=== PATIENT | female | born 1945 | race Caucasian/White ===

== ENCOUNTER 2016-12-02 13:44 | Emergency (ER) | payer MEDICARE, OTHER ==
[~2016-12-02] VITALS: Ht 167.6 cm; Wt 90.7 kg
[~2016-12-02 13:44] MED LIST: ASPI81TA2 PO; CITA20TA5 PO; CITA20TA9 PO; CYCL10TA2 PO; FLUT9.9S NS; ISOS30TA PO; LACT10SO5 PO; LEFL20TA15 PO; LEVO500T34 PO; LISI40TA PO; METO50TA10 PO; METO50TA2 PO; METR500T PO; NIFE60TA13 PO; NIFE60TA2 PO; OMEP20TA PO; ONDA8TAB12 PO; PRED5TAB PO; SIMV80TA3 PO; TOCI80VI IV; TRAM50TA PO; [UNRECOGNIZED DRUG - CODE] PO
--- NOTE | 2016-12-02 13:51 | NUR ---
Arrival: Pt ambulated to ED 5, assessment as charted. Placed on continuios monitor. EDP notified of pt.
--- NOTE | 2016-12-02 14:00 | ER.PDOC ---
General Chief Complaint: Toothache Stated Complaint: MOUTH PAIN Time seen by MD: 14:00 Source: patient History of Present Illness Initial Comments pt has dentures and c/o mouth sores and also has sinus pain and nasal drainage. No sore throat Allergies: Coded Allergies: Sulfa (Sulfonamide Antibiotics) (Verified Allergy, Intermediate, Anaphylaxis Shock, 08/24/15) codeine (Verified Allergy, Intermediate, Rash, 08/24/15) morphine (Verified Allergy, Intermediate, Rash, 08/24/15) EXTREME VOMITING Home Meds Active Scripts Levofloxacin (Levaquin)500 Mg Ngskew137 Mg PO Q24HRS 7 Days Prov:REHAN DIXON MD 11/17/15 Reported Medications Metronidazole (Flagyl)500 Mg Tablet1 Tab PO TID #14 TAB 11/17/15 Ferrous Sulfate 325 Mg Tablet.dr325 Mg PO DAILY 08/24/15 Lactulose 10 Gm/15 Ml Wsbpjeeh31 Gm PO DAILY 08/24/15 Fluticasone Propionate (Flonase Allergy Relief)9.9 Ml Gravity.susp9.9 Ml NS DAILY 08/24/15 Citalopram Hydrobromide (Celexa)20 Mg Tablet1 Tab PO DAILY #30 TAB Ref 2 08/24/15 Nifedipine (Procardia Xl)60 Mg Tab.er.241 Tab PO DAILY #90 TAB Ref 3 08/24/15 Tramadol Hcl 50 Mg Aoobxo18 Mg PO Q6HR PRN PAIN 03/01/15 Cyclobenzaprine Hcl (Flexeril)10 Mg Tablet5 Mg PO TID PRN PAIN 03/01/15 Metoprolol Succinate 50 Mg Tab.er.24h50 Mg PO HS 03/01/15 Tocilizumab (Actemra)80 Mg/4 Ml Vial80 Mg IV EVERY 4 WEEKS 12/30/13 Simvastatin 80 Mg Kziqfr55 Mg PO HS 12/30/13 Lisinopril 40 Mg Jmtntt32 Mg PO DAILY 12/30/13 Aspirin 81 Mg Tab.chew81 Mg PO DAILY 12/30/13 Omeprazole 20 Mg Tablet.dr20 Mg PO DAILY 12/30/13 Prednisone 5 Mg Tablet7.5 Mg PO DAILY 12/30/13 Past Medical History Medical History: COPD, hypertension Surgical History: , hysterectomy, tonsillectomy, tubal LMP (females 10-50): hysterectomy Social History Smoking: less than 1 pack/day Alcohol Use: none Drug Use: none Constitutional: see HPI Ears: see HPI Mouth: see HPI All Other Systems: Reviewed and Negative Physical Exam General Appearance: alert Head/Neck: head nml inspection Eyes: eyes nml inspection Mouth: lips, gums nml (mout sore at the roof of the mouth beneath denture ) Ears/Nose: nml inspection (sinus tenderness right side ) Respiratory: no resp. distress Extremities: ROM nml Skin Exam: Normal Color Departure Time of Disposition: 14:15 Disposition: 01 HOME, SELF-CARE Impression: Primary Impression: Sinusitis Additional Impression: Mouth sores Condition: Stable Referrals: MEGHAN MARTINEZ MD (PCP) PRIMARY CARE PROVIDER QUIN PALACIOS MD Dec 02, 2016 14:00
[2016-12-02 14:30] VITALS: BP 114/77
== END 2016-12-02 14:25 | disposition home or self-care (01) ==
LOC: ER 13:44
DX: J32.9 Chronic sinusitis, unspecified (principal); K13.70 Unspecified lesions of oral mucosa; J44.9 Chronic obstructive pulmonary disease, unspecified; I10 Essential (primary) hypertension; F17.200 Nicotine dependence, unspecified, uncomplicated; Z79.82 Long term (current) use of aspirin; Z79.899 Other long term (current) drug therapy; Z88.2 Allergy status to sulfonamides; Z88.5 Allergy status to narcotic agent
CPT/HCPCS: 99283

== ENCOUNTER 2017-02-01 17:10 | Inpatient (IN) | payer MEDICARE, OTHER ==
[~2017-02-01] VITALS: Ht 167.6 cm; Wt 91.7 kg
--- NOTE | 2017-02-01 17:10 | NUR ---
ARRIVED PT ARRIVED VIA [facility], PT AWAKE, ALERT, ORIENTED X3. PT HAVING PAIN UNDER HER RIBS AND IN HER PELVIS. PT HAS CHRONIC RA PAIN AND LIVES @ A PAIN OF 5. TRIAGE DONE.
[2017-02-01] MEDS ORDERED: DECADRON IH STA (17:24)
[2017-02-01] MEDS ORDERED: SOLU-MEDROL IV STA (17:24)
[2017-02-01] MEDS ORDERED: DUONEB 0.5 MG-3 MG/3 ML SOLN IH STA (17:24)
[2017-02-01] MEDS ORDERED: DILAUDID IV STA (17:24)
--- NOTE | 2017-02-01 17:28 | ER.PDOC ---
General Chief Complaint: Abdomen Pain Stated Complaint: ABD PAIN Time seen by MD: 17:27 Source: patient Exam Limitations: no limitations History of Present Illness Initial Comments Abdominal pain for 2 days. Both ribs also hurt for same period. Severity/Quality: moderate Radiation: no radiation Associated Symptoms: denies symptoms Exacerbated by: nothing Relieved By: nothing Allergies: Coded Allergies: Sulfa (Sulfonamide Antibiotics) (Verified Allergy, Intermediate, Anaphylaxis Shock, 08/24/15) codeine (Verified Allergy, Intermediate, Rash, 08/24/15) morphine (Verified Allergy, Intermediate, Rash, 08/24/15) EXTREME VOMITING Home Meds Active Scripts Levofloxacin (LEVAQUIN) 500 Mg Tablet, 250 MG PO Q24HRS for 7 Days, TABLET Prov:REHAN DIXON MD 11/17/15 Reported Medications Metronidazole (FLAGYL) 500 Mg Tablet, 1 TAB PO TID, #14 TAB 11/17/15 Ferrous Sulfate (FERROUS SULFATE) 325 Mg Tablet.dr, 325 MG PO DAILY 08/24/15 Lactulose (LACTULOSE) 10 Gm/15 Ml Solution, 10 GM PO DAILY 08/24/15 Fluticasone Propionate (Flonase Allergy Relief) 9.9 Ml [place].susp, 9.9 ML NS DAILY 08/24/15 Citalopram Hydrobromide (CELEXA) 20 Mg Tablet, 1 TAB PO DAILY, #30 TAB 2 Refills 08/24/15 Nifedipine (PROCARDIA XL) 60 Mg Tab.er.24, 1 TAB PO DAILY, #90 TAB 3 Refills 08/24/15 Tramadol Hcl (TRAMADOL HCL) 50 Mg Tablet, 50 MG PO Q6HR Y for PAIN, TABLET 03/01/15 Cyclobenzaprine Hcl (FLEXERIL) 10 Mg Tablet, 5 MG PO TID Y for PAIN, TABLET 03/01/15 Metoprolol Succinate (METOPROLOL SUCCINATE) 50 Mg Tab.er.24h, 50 MG PO HS 03/01/15 Tocilizumab (ACTEMRA) 80 Mg/4 Ml Vial, 80 MG IV EVERY 4 WEEKS, VIAL 12/30/13 Simvastatin (SIMVASTATIN) 80 Mg Tablet, 80 MG PO HS, TABLET 12/30/13 Lisinopril (LISINOPRIL) 40 Mg Tablet, 40 MG PO DAILY, TABLET 12/30/13 Aspirin (ASPIRIN) 81 Mg Tab.chew, 81 MG PO DAILY, TAB.CHEW 12/30/13 Omeprazole (OMEPRAZOLE) 20 Mg Tablet.dr, 20 MG PO DAILY 12/30/13 Prednisone (PREDNISONE) 5 Mg Tablet, 7.5 MG PO DAILY, TABLET 12/30/13 Vital Signs First Vital Signs Date Time Temp Pulse Resp B/P (MAP) Pulse Ox O2 Delivery O2 Flow Rate FiO2 02/01/17 17:12 98.3 75 18 88 02/01/17 17:17 141/70 (93) Last Vital Signs Date Time Temp Pulse Resp B/P (MAP) Pulse Ox O2 Delivery O2 Flow Rate FiO2 02/01/17 17:17 98.3 75 18 141/70 (93) 88 Past Medical History Medical History: CVA/TIA/stroke, COPD, heart attack, hypertension Surgical History: hysterectomy, stent LMP (females 10-50): hysterectomy Social History Smoking: greater than 1 pack/day Alcohol Use: none Drug Use: none Constitutional: no symptoms reported Respiratory: see HPI Cardiovascular: no symptoms reported Gastrointestinal: see HPI Genitourinary: no symptoms reported Musculoskeletal: no symptoms reported Skin: no symptoms reported All Other Systems: Reviewed and Negative Physical Exam General Appearance: No Apparent Distress, WD/WN Neck: Non-Tender, Full Range of Motion, Supple, Normal Inspection Respiratory: chest non-tender, normal breath sounds, no respiratory distress, no accessory muscle use, decreased breath sounds, wheezing Cardiovascular: Normal Peripheral Pulses, Regular Rate, Rhythm, No Edema, No Gallop, No JVD, No Murmur Gastrointestinal: Normal Bowel Sounds, No Organomegaly, No Pulsatile Mass, Non Tender, Absent bowel sounds, Tenderness (upper and lower abdomen) Back: Normal Inspection, No CVA Tenderness, No Vertebral Tenderness Extremities: Normal Range of Motion, Non-Tender, Normal Inspection, No Pedal Edema, No Calf Tenderness, Normal Capillary Refill, Pelvis Stable Neurologic/Psychiatric: childcare aide II-XII NML as Tested, No Motor/Sensory Deficits, Alert, Normal Mood/Affect, Oriented x 3 Skin: Normal Color, Warm/Dry EKG/XRAY/CT/US EKG: NSR XRAY: chest (Nothing acute) CT Comments: No PE Course Blood Pressure Systolic: 141 Blood Pressure Diastolic: 70 Blood Pressure Mean: 93 Departure Time of Disposition: 20:19 Disposition: 09 ADMITTED INPATIENT Impression: Primary Impression: Respiratory failure with hypoxia Additional Impression: COPD exacerbation Condition: Stable Referrals: MEGHAN DUBOIS MD (PCP) PRIMARY CARE PROVIDER Comments Admitted to Dr. Dubois Critical Care Note Total Time (mins): 74 Problem Qualifiers Primary Impression: Respiratory failure with hypoxia Chronicity: acute Qualified Codes: J96.01 - Acute respiratory failure with hypoxia JOSE RAFAEL BEAUCHAMP MD February 01, 2017 17:28
[2017-02-01] MEDS ORDERED: SOLU-MEDROL ONE (17:34)
[2017-02-01] MEDS ORDERED: DILAUDID ONE (17:34)
[2017-02-01 17:39] LABS: ABG PCO2 38.5 mmHg (35.0-45.0); BE(B) 0.5 mmol/L (-2.0-2.0); HCO3act 24.7 mmol/L (22.0-26.0); pO2 47.6 mmHg (75.0-100.0)
[2017-02-01] MEDS ORDERED: DUONEB 0.5 MG-3 MG/3 ML SOLN IH ONE (17:44)
[2017-02-01] MEDS ORDERED: DECADRON ONE (17:44)
[2017-02-01] MEDS ORDERED: BENADRYL ONE (17:47)
[2017-02-01] MEDS ORDERED: BENADRYL IV STA (17:47)
[2017-02-01 17:51] LABS: BASOPHIL % 0.2 % (0.0-0.2); EOSINOPHIL % 0.4 % (0.0-5.0); HEMATOCRIT 46.1 % (36.0-46.0); HEMOGLOBIN 15.2 g/dL (12.0-15.0); LYMPHOCYTES # 0.6 10^3/uL (1.0-4.8); LYMPHOCYTES % 5.9 % (24.0-44.0); MEAN CELL HGB 27.4 pg (26-34); MEAN CORP VOLUME 83.2 fL (78-100); MEAN PLATELET VOLUME 10.3 fL (7.8-11.0); MONOCYTES # 0.7 10^3/uL (0.3-0.8); MONOCYTES % 6.6 % (5.0-12.0); NEUTROPHIL # 8.8 10^3/uL (1.8-7.7); NEUTROPHILS % 86.6 % (41.0-85.0); PLATELET COUNT 237 10^3/uL (150-400); RED CELL DISTRIBUTION WIDTH 14.9 % (11.5-14.5); WHITE BLOOD CELL 10.1 10^3/uL (4.5-11.0)
--- NOTE | 2017-02-01 17:55 | DIREP ---
PROCEDURE:CHEST 1 VIEW COMPARISON:[facility], CR, XRAY CHEST SINGLE VW, 11/16/2015, 05:05 PM. INDICATIONS:hypoxia FINDINGS: LUNGS/PLEURA:Subsegmental atelectasis or scarring in the right mid lung. The remainder of the lungs are clear. VASCULATURE:Normal. Unremarkable pulmonary vasculature. CARDIAC:Normal. No cardiac silhouette abnormality or cardiomegaly. MEDIASTINUM:Atherosclerotic aorta with no visible aneurysm. BONES:There are degenerative changes of both shoulders, right greater left. OTHER:Negative. CONCLUSION: 1. No evidence for acute cardiopulmonary disease. Dictated by: Tres Simmons MD on 02/01/2017 at 05:50 PM
[2017-02-01 18:11] LABS: CALCIUM 8.6 mg/dL (8.4-10.5); CARBON DIOXIDE 27.1 mmol/L (20.0-32)
[2017-02-01] MEDS ORDERED: NS IV STA (18:53)
[2017-02-01 19:09] LABS: DIFFERENTIAL COMMENT NORMAL; LYMPHOCYTE 5 % (25-36); MONOCYTE 4 % (3-9); SEGMENTED NEUTROPHILS 91 % (31-76)
[2017-02-01] MEDS ORDERED: NS 1000ML 1,000 ML ONE (19:11)
--- NOTE | 2017-02-01 20:05 | DIREP ---
PROCEDURE:CT PULMONARY ANGIOGRAM AND CT VENOGRAM TECHNIQUE:Following the intravenous administration of contrast material, axial cuts were obtained through the chest. Multiplanar / 3-D reconstructions are provided. Satisfactory pulmonary arterial contrast opacification was achieved. Delayed images through the pelvis and upper legs were acquired for a CT venogram. The images were viewed at lung and soft tissue settings. COMPARISON:[facility], CT, CT-CTA PULMONARY ANGIOGRAM, 12/27/2012, 11:59 PM. INDICATIONS:Hypoxia and chest pain FINDINGS: PULMONARY ARTERIES:Patent. VEINS OF PELVIS/LEGS:Patent. LUNGS:Trace both lower lobes there are subsegmental atelectatic changes in the posterior upper lobes. CARDIAC:Normal size heart and normal pulmonary vascularity. THORACIC AORTA:Atherosclerotic calcifications. No aneurysmal dilatation. 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 The right subclavian artery passes posterior to the esophagus. Moderate sliding-type hiatal hernia. PLEURA:Normal. BONES:Normal. PELVIS:Normal. OTHER:Sebaceous cyst posterior midline upper thorax. CONCLUSION: 1. No evidence for pulmonary embolism or deep venous thrombosis. 2. Moderate sliding-type hiatal hernia. 3. Subsegmental atelectasis or scarring throughout the lungs. Dictated by: Tres Simmons MD on 02/01/2017 at 07:56 PM
--- NOTE | 2017-02-01 20:25 | PRM.ACF1 ---
Date and Time Date and Time Time: 20:24 Admission Criteria Forms RESPIRATORY FAILURE GRG Clinical Indications for Admission to Inpatient Care (Place 'X' for any and all applicable criteria): Hospital admission is needed for appropriate care of the patient because of acute respiratory failure or insufficiency as indicated by ANY ONE of the following(1)(2)(3)(4)(5)(6)(7)(8): [ ]I. Mechanical ventilation needed (acute invasive or noninvasive) [ ]II. Severe ventilation deficit as indicated by ANY ONE of the following (9) [ ]a) Respiratory acidosis (pH less than 7.32 and partial pressure of carbon dioxide greater than 40 mm Hg (5.3 kPa)) [ ]b) Partial pressure of carbon dioxide greater than 44 mm Hg (5.9 kPa ) (new) [ ]c) Airflow measurements less than 25% of predicted (eg, peak expiratory flow rate less than 100 L/minute) [ ]d) Forced vital capacity less than 15 mL/kg of ideal body weight, or 50% decrease in vital capacity from baseline [ ]III. Noncardiac pulmonary edema not resolving with rapid emergency treatment (8) [x ]IV. Severe respiratory distress as indicated by ANY ONE of the following: [ ]a) Severe tachypnea (respiratory rate greater than 30, greater than 45 for 6-month-old, greater than 60 for ) [ ]b) Severe hypoxemia (partial pressure of oxygen less than 50 mm Hg ( 6.7 kPa) on greater than 50% oxygen or partial pressure of oxygen to FIO2 ratio less than 200) [ ]c) Mental status deterioration from respiratory disease [ ]V. Airway obstruction or inadequate protection [A](10)(11) The original [employer] content created by [employer] has been revised. The portions of the content which have been revised are identified through the use of italic text or in bold, and [employer] has neither reviewed nor approved the modified material. All other unmodified content is copyright [employer]. Please see references footnoted in the original [employer] edition 2016 JOSE RAFAEL BEAUCHAMP MD February 01, 2017 20:25
[2017-02-01] MEDS ORDERED: LEVAQUIN 100 ML IV SCH (20:30)
[2017-02-01] MEDS ORDERED: LEVAQUIN 100 ML IV ONE (20:43)
[2017-02-01] MEDS ORDERED: PULMICORT IH SCH (21:00)
[2017-02-01] MEDS: DUONEB 0.5 MG-3 MG/3 ML SOLN IH SCH (22:34)
--- NOTE | 2017-02-01 23:00 | NUR ---
NEW ORDERS RECEIVED RECEIVED NEW ORDERS FROM DR MARTINEZ: TYLENOL 500 MG PO Q6 HR FOR PAIN, TRAMADOL 50 MG PO Q6 FOR PAIN, MAY GIVE DILAUDID 1 MG IV Q4 PRN FOR PAIN- GIVE ONLY IF TRAMADOL IS NOT HELPING REDUCE PAIN. RBAV.
--- NOTE | 2017-02-01 23:20 | NUR ---
pain meds into give patient tramadol 50 for stated pain in ribs, patient states pain at a 8/10 on pain scale will reassess pain
[2017-02-01] MEDS ORDERED: TYLENOL PO PRN (23:30)
[2017-02-01] MEDS: SOLU-MEDROL IV SCH (23:30)
[2017-02-01] MEDS ORDERED: ULTRAM PO PRN (23:30)
[2017-02-01] MEDS ORDERED: DILAUDID IV PRN (23:30)
[2017-02-01 23:40] VITALS: BP 128/72
--- NOTE | 2017-02-01 23:49 | NUR ---
into get patients tempature and vital signs no ss of distress at this time
[2017-02-01 23:50] VITALS: BP 139/83
[2017-02-02] VITALS (31 sets, daily range): BP systolic 57–159; BP diastolic 29–81
[2017-02-02] MEDS ORDERED: DUONEB 0.5 MG-3 MG/3 ML SOLN IH SCH
[2017-02-02] MEDS: DUONEB 0.5 MG-3 MG/3 ML SOLN IH SCH ×6 (01:39→21:05)
--- NOTE | 2017-02-02 02:59 | NUR ---
into assess patient, patietn asleep resp even and unlabored call light within reach will cont to monitor
--- NOTE | 2017-02-02 04:06 | NUR ---
into assist patient get a drink of water, patient states no pain at this time will cont to monitor
[2017-02-02] MEDS: SOLU-MEDROL IV SCH ×3 (05:39→17:37)
--- NOTE | 2017-02-02 06:10 | NUR ---
asses pain into asses pain after pain medication had been given patient states that pain is being relieved some, no other needs voiced at this time.
--- NOTE | 2017-02-02 06:32 | NUR ---
gave report to oncoming shift relinquished care
[2017-02-02] MEDS ORDERED: DUONEB 0.5 MG-3 MG/3 ML SOLN IH ONE (08:09)
--- NOTE | 2017-02-02 08:29 | PCM.HP ---
History of Present Illness History of Present Illness 71 yro woman with RA, hypertension and COPD presented to the ER last night with dyspnea, pain and hypoxia. pt states 3 days ago arthritis pain flare in her pelvis. she has been having difficulty getting up out of chair and unable to walk. she has been using the rolling walker. yesterday she could not catch her breath and was having pain across both lower rib cages. no fever. no cough , + increase in wheezing Past Medical History Cardiac: CAD, HTN, Hyperlipidemia Pulmonary: COPD Heme/Onc: Other (secondary polycythemia) Psychiatric: Depression Endocrine: Osteopenia, Other (brendan's) Past Surgical History: Cataract Removal, , Tubal Ligation, Other ( hysterectomy, tendon transfer right wrist) Past Social History Smoke: 1 pack per day Alcohol: none Travel Hx EBOLA RISK:Travel to/contact w: No Is pt experiencing any Ebola s: No Review of Systems Constitutional: Weakness Eyes: No: Pain, Vision change, Conjunctivae inflammation, Eyelid inflammation, Other, Redness ENT: No: Ear pain, Ear discharge, Nose pain, Nose discharge, Nose congestion, Mouth pain, Mouth swelling, Throat pain, Throat swelling, Other Respiratory: SOB with excertion, Wheezing Cardiovascular: Chest Pain (lower rib cage) Gastrointestinal: No: Nausea, Vomiting, Abdominal Pain, Diarrhea, Constipation , Melena, Hematochezia, Other Genitourinary: No Dysuria, No Frequency, No Incontinence, No Hematuria, No Retention, No Other Musculoskeletal: shoulder pain, back pain, leg pain Skin: No: Rash, Lesions, Jaundice, Bruising, Other Neurological: Weakness Allergies: Coded Allergies: Sulfa (Sulfonamide Antibiotics) (Verified Allergy, Intermediate, Anaphylaxis Shock, 08/24/15) codeine (Verified Allergy, Intermediate, Rash, 08/24/15) morphine (Verified Allergy, Intermediate, Rash, 08/24/15) EXTREME VOMITING Scheduled Aspirin (Aspirin), 81 MG PO DAILY, (Reported) Citalopram Hydrobromide (Celexa), 1 TAB PO DAILY, (Reported) Ferrous Sulfate (Ferrous Sulfate), 325 MG PO DAILY, (Reported) Fluticasone Propionate (Flonase Allergy Relief), 9.9 ML NS DAILY, (Reported) Lactulose (Lactulose), 10 GM PO DAILY, (Reported) Lisinopril (Lisinopril), 40 MG PO DAILY, (Reported) Metoprolol Succinate (Metoprolol Succinate), 50 MG PO HS, (Reported) Nifedipine (Procardia Xl), 1 TAB PO DAILY, (Reported) Omeprazole (Omeprazole), 20 MG PO DAILY, (Reported) Prednisone (Prednisone), 7.5 MG PO DAILY, (Reported) Simvastatin (Simvastatin), 80 MG PO HS, (Reported) Tocilizumab (Actemra), 80 MG IV EVERY 4 WEEKS, (Reported) Scheduled PRN Cyclobenzaprine Hcl (Flexeril), 5 MG PO TID PRN for PAIN, (Reported) Tramadol Hcl (Tramadol Hcl), 50 MG PO Q6HR PRN for PAIN, (Reported) Discontinued Medications Levofloxacin (Levaquin), 250 MG PO Q24HRS Discontinued Reason: No Longer Taking Metronidazole (Flagyl), 1 TAB PO TID, (Reported) Discontinued Reason: No Longer Taking VTE VTE Risk Score VTE Risk: Score 0-1 = Low Risk (Aggressive mobilization; early ambulation; no VTE prophylaxis required) Score 2: Moderate Risk (Intermittent/Pneumatic Compression Device OR Lovenox/Heparin/Coumadin) Score 3-4: High Risk (Intermittent/Pneumatic Compression Device AND Lovenox/Heparin/Coumadin) Score > or =5: Highest Risk (Intermittent/Pneumatic Compression Device AND Lovenox/Heparin/Coumadin) Antico:Hep/LMWH/Coum/Xarelto: Yes Mechanical device ordered: No Exam Vital Signs Vital Signs Date Time Temp Pulse Resp B/P (MAP) Pulse Ox O2 Delivery O2 Flow Rate FiO2 02/02/17 08:04 Nasal Cannula 02/02/17 05:20 83 20 93 02/02/17 04:50 121/70 (87) 02/01/17 23:40 97.8 02/01/17 21:36 3.00 General Appearance: Alert, Oriented X3, Cooperative HEENT: Atraumatic Respiratory: Clear to auscultation, Normal air movement Cardiovascular: Normal S1, Normal S2, No murmurs Abdominal: Soft, No tenderness Extremities: No edema, Other (deformity of hands) Skin: No lesions Neuro: Normal speech Psych/Mental Status: Mood NL Assessment/Plan Assessment/Plan Assessment/Plan - pt admitted for oxygen, steroids, frequent nebulizer treatment - pt seen in the ICU at 8 am acute respiratory failure- improved since admission COPD excerbation - this pt may need oxygen at home RA- hold injection biologic - tramadol, tylenol and dilaudid prn for pain Brendan's - pt is receiving more than stress dose steroids with the IV solumedrol DVt prophylaxis with Lovenox pt stable and transfer to Floor today Problems: (1) Respiratory failure with hypoxia Status: Acute ICD Code: J96.91 - Respiratory failure, unspecified with hypoxia SNOMED: 52965287872185979 (2) COPD exacerbation Status: Chronic SEVERITY: MODERATE PERSISTENT ICD Code: J44.1 - Chronic obstructive pulmonary disease with (acute) exacerbation SNOMED: 398098279, [id number] (3) Rheumatoid arthritis flare Status: Chronic SEVERITY: SEVERE PERSISTENT ICD Code: M06.9 - Flare of rheumatoid arthritis SNOMED: 359198560 Patient History: Chronic obstructive pulmonary disease 33 FATHER, , Age:82 Congestive heart failure 32 MOTHER, , Age:86 Diabetes mellitus 32 MOTHER, , Age:86 Hypertension 32 MOTHER, , Age:86 33 FATHER, , Age:82 Unknown No Family History of: Alzheimer's disease Asthma Cerebrovascular disorder Diabetes insipidus Parkinson's disease Problem Qualifiers (1) Respiratory failure with hypoxia: Chronicity: acute Qualified Codes: J96.01 - Acute respiratory failure with hypoxia MEGHAN MARTINEZ MD Feb 02, 2017 08:29
[2017-02-02] MEDS ORDERED: FLEXERIL PO PRN ×2 (08:30)
[2017-02-02] MEDS ORDERED: ULTRAM PO PRN ×3 (08:30→12:00)
--- NOTE | 2017-02-02 08:35 | NUR ---
DISCHARGE PLANNING: SS VISITED WITH PT REGARDING DISCHARGE PLANNING NEED. PT LVIES HOME WITH HER AND HAS A WALKER SHE USES TO ASSIST WITH AMBULATION AND IS ABLE TO GET AROUND "PRETTY WELL". 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 PT STATED SHE IS OVER ALL FAIRLY INDEPENDENT, BUT WOULD LIKE A WHEEL CHAIR TO MAKE IT EASIER TO GET AROUND HER HOUSE. SS LET PT KNOW THAT IS SOMETHING HER AND HER PHYSICIAN NEED TO DISCUSS, BUT A LOT OF THE TIMES IT IS NOT RECOMMENDED BECAUSE PEOPLE BECOME DEPENDENT ON THEM AND NO LONGER ARE ABLE TO AMBULATE WELL. PT STATED SHE UNDERSTOOD AND WOULD ADDRESS IT WITH HER PHYSICIAN. SS LET PT KNOW IF SHE NEEDED ANY FURTHER ASSISTANCE TO LET HER KNOW AND SHE WOULD FOLLOW UP WITH HER. CONTACT INFORMATION PROVIDED. PT SAFETY HANDOUT ADDRESSED, NO QUESTIONS ASKED, UNDERSTANDING VERBALIZED. NO FURTHER NEEDS NOTED OR IDENTIFIED AT THIS TIME. SS TO CONTINUE TO FOLLOW AND MONITOR DISCHARGE PLANNING NEEDS.
[2017-02-02] MEDS: CEPHULAC PO SCH ×2 (08:37→09:00)
[2017-02-02] MEDS: CELEXA PO SCH (08:37)
[2017-02-02] MEDS: PROTONIX PO SCH (08:37)
[2017-02-02] MEDS: PROCARDIA PO SCH (08:37)
[2017-02-02] MEDS: ASPIRIN PO SCH (08:37)
[2017-02-02] MEDS: ZESTRIL PO SCH (08:38)
[2017-02-02] MEDS ORDERED: ASPIRIN PO SCH (09:00)
[2017-02-02] MEDS ORDERED: PROCARDIA PO SCH (09:00)
[2017-02-02] MEDS ORDERED: PROTONIX PO SCH (09:00)
[2017-02-02] MEDS ORDERED: CEPHULAC PO SCH (09:00)
[2017-02-02] MEDS ORDERED: CELEXA PO SCH (09:00)
[2017-02-02] MEDS ORDERED: ZESTRIL PO SCH (09:00)
[2017-02-02] MEDS ORDERED: FLONASE NS SCH (09:00)
[2017-02-02] MEDS: FLONASE NS SCH (09:00)
[2017-02-02] MEDS: PULMICORT IH SCH ×2 (09:22→21:05)
--- NOTE | 2017-02-02 09:55 | NUR ---
transfer patient transferred to med/surg via wheelchair with all belongings. assisted into bed and attached o2 cannula to wall o2 and set to 3 L/Min. report given to Deysi CAO.
[2017-02-02] MEDS ORDERED: DILAUDID IV PRN (11:30)
[2017-02-02] MEDS ORDERED: TYLENOL PO PRN (11:30)
[2017-02-02] MEDS ORDERED: TOPROL XL PO SCH ×2 (21:00)
[2017-02-02] MEDS ORDERED: ZOCOR PO SCH ×2 (21:00)
[2017-02-02] MEDS ORDERED: LOVENOX SQ SCH (21:00)
[2017-02-03] VITALS: BP 119/69
[2017-02-03] MEDS: DUONEB 0.5 MG-3 MG/3 ML SOLN IH SCH ×3 (00:38→09:05)
[2017-02-03] MEDS: SOLU-MEDROL IV SCH ×2 (00:42→06:46)
[2017-02-03 04:21] VITALS: BP 151/74
[2017-02-03] MEDS ORDERED: PRED20TA PO (08:23)
[2017-02-03] MEDS: ZESTRIL PO SCH (08:56)
[2017-02-03] MEDS: CELEXA PO SCH (08:57)
[2017-02-03] MEDS: PROTONIX PO SCH (08:57)
[2017-02-03] MEDS: PROCARDIA PO SCH (08:57)
[2017-02-03] MEDS: ASPIRIN PO SCH (08:57)
[2017-02-03] MEDS: CEPHULAC PO SCH (08:58)
[2017-02-03 08:59] VITALS: BP 137/62
[2017-02-03] MEDS: FLONASE NS SCH (09:00)
[2017-02-03] MEDS: PULMICORT IH SCH (09:05)
--- NOTE | 2017-02-03 09:07 | NUR ---
O2 challenge Patient O2 sat at 96% on 2.5 L. O2 checked after 15 minutes at rest on room air, and patients O2 was 92%. Ambulated patient down hernandez to nurses station, patient's oxygen dropped to 81%. O2 applied at 2.5 liters. Patients oxygen up to 96% within 3 minutes of oxygen being reapplied. Addendum: 02/03/17 at 1015 by Deysi Perez RN - MS CAO Educated patient on smoking cessation, and alternatives, patient verbalized understanding. Patient has been tried on other alternatives and have been deemed ineffective. Due to patients mobility in the home, O2 sats dropping after exertion. Patient will need home O2
[2017-02-03 10:24] VITALS: BP 137/62
--- NOTE | 2017-02-06 16:58 | PRM.DC ---
Subjective Subjective Patient History: Chronic obstructive pulmonary disease 33 FATHER, , Age:82 Congestive heart failure 32 MOTHER, , Age:86 Diabetes mellitus 32 MOTHER, , Age:86 Hypertension 32 MOTHER, , Age:86 33 FATHER, , Age:82 Unknown No Family History of: Alzheimer's disease Asthma Cerebrovascular disorder Diabetes insipidus Parkinson's disease Events Since Last Encounter Pt was admitted with hypoxia and Copd exacerbation. RS flare for 3 days prior to the start of dyspnea. pt was admitted to the ICU over night due to high level oxugen requirement in the Er . she did well on steroids, oxygen and breathing treatments. pt insisted on the am of 03 February she was leaving and she would start oxygen is needed. she has to go to a family reunion for the wkend. pt was much improved on the high dose steroids. oxygen sat 81% on day of discharge qualified pt for home oxygen. Exam Vital Signs Vital Signs Date Time Temp Pulse Resp B/P (MAP) Pulse Ox O2 Delivery O2 Flow Rate FiO2 02/03/17 10:56 Nasal Cannula 02/03/17 10:24 87 18 95 02/03/17 09:08 3.00 32 02/03/17 08:59 137/62 (87) 02/03/17 04:21 98.0 General Appearance: Alert, Oriented X3, Cooperative HEENT: Atraumatic Respiratory: Other (scattered wheeze, deminized breath sounds base of both lungs. ) Cardiovascular: Normal S1, Normal S2 Abdominal: Soft, No tenderness Extremities: No edema, Other (nodular deformity both hands) Skin: No lesions Neuro: Normal speech Psych/Mental Status: Mood NL VTE VTE Risk Score VTE Risk: Score 0-1 = Low Risk (Aggressive mobilization; early ambulation; no VTE prophylaxis required) Score 2: Moderate Risk (Intermittent/Pneumatic Compression Device OR Lovenox/Heparin/Coumadin) Score 3-4: High Risk (Intermittent/Pneumatic Compression Device AND Lovenox/Heparin/Coumadin) Score > or =5: Highest Risk (Intermittent/Pneumatic Compression Device AND Lovenox/Heparin/Coumadin) Antico:Hep/LMWH/Coum/Xarelto: Yes Mechanical device ordered: No Objective Medication Reconciliation Scheduled Aspirin (Aspirin), 81 MG PO DAILY, (Reported) Citalopram Hydrobromide (Celexa), 1 TAB PO DAILY, (Reported) Ferrous Sulfate (Ferrous Sulfate), 325 MG PO DAILY, (Reported) Fluticasone Propionate (Flonase Allergy Relief), 9.9 ML NS DAILY, (Reported) Lactulose (Lactulose), 10 GM PO DAILY, (Reported) Lisinopril (Lisinopril), 40 MG PO DAILY, (Reported) Metoprolol Succinate (Metoprolol Succinate), 50 MG PO HS, (Reported) Nifedipine (Procardia Xl), 1 TAB PO DAILY, (Reported) Omeprazole (Omeprazole), 20 MG PO DAILY, (Reported) Prednisone (Prednisone), 20 MG PO BID Simvastatin (Simvastatin), 80 MG PO HS, (Reported) Tocilizumab (Actemra), 80 MG IV EVERY 4 WEEKS, (Reported) Scheduled PRN Cyclobenzaprine Hcl (Flexeril), 5 MG PO TID PRN for PAIN, (Reported) Tramadol Hcl (Tramadol Hcl), 50 MG PO Q6HR PRN for PAIN, (Reported) Discontinued Medications Levofloxacin (Levaquin), 250 MG PO Q24HRS Discontinued Reason: No Longer Taking Metronidazole (Flagyl), 1 TAB PO TID, (Reported) Discontinued Reason: No Longer Taking Prednisone (Prednisone), 7.5 MG PO DAILY, (Reported) Discontinued Reason: HOLD Plan Assessment continue steroids at 20 mg po BId for the next wk oxygen orders through company of pt's choice continue home nebulizer treatments. f/u with me in 1 wk Problems, incl. Pt HX: (1) COPD (chronic obstructive pulmonary disease) Status: Chronic ICD Code: J44.9 - Chronic obstructive pulmonary disease, unspecified SNOMED: 08741482 (2) Acute respiratory failure with hypoxia Status: Acute ICD Code: J96.01 - Acute respiratory failure with hypoxia SNOMED: 09153859, 237362469 (3) Rheumatoid arthritis flare Status: Chronic ICD Code: M06.9 - Flare of rheumatoid arthritis SNOMED: [id number] MEGHAN MARTINEZ MD Feb 06, 2017 16:58
== END 2017-02-03 11:23 | disposition home or self-care (01) | DRG 189 ==
LOC: ER 17:10 → EDBD 17:10 → ICU 20:20 → MS 02-02 10:03
PROVIDERS: ADMIT Family Medicine; ATTEND Family Medicine
DX: J96.01 Acute respiratory failure with hypoxia (principal); J44.1 Chronic obstructive pulmonary disease with (acute) exacerbation; E78.5 Hyperlipidemia, unspecified; I25.10 Atherosclerotic heart disease of native coronary artery without angina pectoris; M06.9 Rheumatoid arthritis, unspecified; D75.1 Secondary polycythemia; F32.9 Major depressive disorder, single episode, unspecified; I10 Essential (primary) hypertension; M85.80 Other specified disorders of bone density and structure, unspecified site; F17.210 Nicotine dependence, cigarettes, uncomplicated; I25.2 Old myocardial infarction; Z90.710 Acquired absence of both cervix and uterus; Z98.51 Tubal ligation status; Z98.49 Cataract extraction status, unspecified eye; Z88.6 Allergy status to analgesic agent; Z88.2 Allergy status to sulfonamides; Z79.82 Long term (current) use of aspirin; Z79.899 Other long term (current) drug therapy; Z86.73 Personal history of transient ischemic attack (TIA), and cerebral infarction without residual deficits; Z82.5 Family history of asthma and other chronic lower respiratory diseases; Z82.49 Family history of ischemic heart disease and other diseases of the circulatory system; Z83.3 Family history of diabetes mellitus
CPT/HCPCS: 36415; 36600; 71010; 71275; 80053; 82803; 83690; 83880; 84484; 85007; 85025; 85379; 85610; 85730; 86677; 93005; 94640; 96365; 96375; 99291; J1100; J1170; J1200; J1650; J1956; J2930; J7030; J7620; J7627; Q9967

== ENCOUNTER 2017-07-07 02:40 | Emergency (ER) | payer MEDICARE, OTHER ==
[~2017-07-07] VITALS: Ht 167.6 cm; Wt 86.2 kg
[~2017-07-07 02:40] MED LIST changes: +ASPI-667 PO; -ASPI81TA2 PO; -LEVO500T34 PO; +LEVO500T51 PO; +METO-237 PO; -METO50TA10 PO; -OMEP20TA PO; +OMEP20TA9 PO; +PRED20TA PO
[2017-07-07] MEDS ORDERED: BENADRYL IM STA (03:05)
[2017-07-07] MEDS ORDERED: DILAUDID IM STA (03:05)
[2017-07-07] MEDS ORDERED: DILAUDID ONE (03:06)
[2017-07-07] MEDS ORDERED: BENADRYL ONE (03:06)
--- NOTE | 2017-07-07 03:09 | ER.PDOC ---
General Chief Complaint: Extremities Stated Complaint: SHOULDER PAIN Time seen by MD: 03:07 Source: patient Exam Limitations: no limitations History of Present Illness Initial Comments Tight shoulder pain from RA flare up. No new fall or injury. Severity: moderate Allergies: Coded Allergies: Sulfa (Sulfonamide Antibiotics) (Verified Allergy, Intermediate, Anaphylaxis Shock, 08/24/15) codeine (Verified Allergy, Intermediate, Rash, 08/24/15) morphine (Verified Allergy, Intermediate, Rash, 08/24/15) EXTREME VOMITING Home Meds Active Scripts Prednisone (PREDNISONE) 20 Mg Tablet, 20 MG PO BID for 7 Days, #14 TAB Prov:MEGHAN MARTINEZ MD 02/03/17 Reported Medications Ferrous Sulfate (FERROUS SULFATE) 325 Mg Tablet.dr, 325 MG PO DAILY 08/24/15 Lactulose (LACTULOSE) 10 Gm/15 Ml Solution, 10 GM PO DAILY 08/24/15 Fluticasone Propionate (Flonase Allergy Relief) 9.9 Ml [place].susp, 9.9 ML NS DAILY 08/24/15 Citalopram Hydrobromide (CELEXA) 20 Mg Tablet, 1 TAB PO DAILY, #30 TAB 2 Refills 08/24/15 Nifedipine (PROCARDIA XL) 60 Mg Tab.er.24, 1 TAB PO DAILY, #90 TAB 3 Refills 08/24/15 Tramadol Hcl (TRAMADOL HCL) 50 Mg Tablet, 50 MG PO Q6HR Y for PAIN, TABLET 03/01/15 Cyclobenzaprine Hcl (FLEXERIL) 10 Mg Tablet, 5 MG PO TID Y for PAIN, TABLET 03/01/15 Metoprolol Succinate (METOPROLOL SUCCINATE) 50 Mg Tab.er.24h, 50 MG PO HS 03/01/15 Tocilizumab (ACTEMRA) 80 Mg/4 Ml Vial, 80 MG IV EVERY 4 WEEKS, VIAL 12/30/13 Simvastatin (SIMVASTATIN) 80 Mg Tablet, 80 MG PO HS, TABLET 12/30/13 Lisinopril (LISINOPRIL) 40 Mg Tablet, 40 MG PO DAILY, TABLET 12/30/13 Aspirin (ASPIRIN) 81 Mg Tab.chew, 81 MG PO DAILY, TAB.CHEW 12/30/13 Omeprazole (OMEPRAZOLE) 20 Mg Tablet.dr, 20 MG PO DAILY 12/30/13 Past Medical History Medical History: COPD, hypertension Surgical History: hysterectomy, stent, tonsillectomy, tubal Social History Smoking: greater than 1 pack/day Alcohol Use: none Drug Use: none Review of Systems Constitutional: no symptoms reported Respiratory: no symptoms reported Cardiovascular: no symptoms reported Gastrointestinal: no symptoms reported Musculoskeletal: see HPI All Other Systems: Reviewed and Negative Physical Exam General Appearance: Alert, No Apparent Distress Shoulder: tenderness (right) Upper Extremities: uninjuried below shoulder Neuro: sensation nml, motor nml Vascular: no vascular compromise Head/ENT: nml inspection, pharynx nml Neck/Back: non-tender, nml inspection, painless ROM Respiratory: chest non-tender, breath sounds nml CVS: reg rate & rhythm, heart sounds nml Abdomen: non-tender, no organomegaly Departure Time of Disposition: 03:08 Disposition: 01 HOME, SELF-CARE Impression: Primary Impression: Rheumatoid arthritis flare Additional Impression: Right shoulder pain Condition: Improved Referrals: FERMIN DASILVA MD (PCP) PRIMARY CARE PROVIDER Additional Instructions: Continue home medications F/U with your PCP next week Problem Qualifiers Additional Impression: Right shoulder pain Chronicity: chronic Qualified Codes: M25.511 - Pain in right shoulder; G89.29 - Other chronic pain JOSE RAFAEL BEAUCHAMP MD Jul 07, 2017 03:09
--- NOTE | 2017-07-07 03:11 | PCM.EKG ---
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
[2017-07-07 03:33] VITALS: BP 137/80
== END 2017-07-07 03:25 | disposition home or self-care (01) ==
LOC: ER 02:40
DX: M06.9 Rheumatoid arthritis, unspecified (principal); I10 Essential (primary) hypertension; J44.9 Chronic obstructive pulmonary disease, unspecified; F17.200 Nicotine dependence, unspecified, uncomplicated; Z79.82 Long term (current) use of aspirin; Z79.899 Other long term (current) drug therapy; Z88.2 Allergy status to sulfonamides; Z88.5 Allergy status to narcotic agent; Z88.8 Allergy status to other drugs, medicaments and biological substances
CPT/HCPCS: 93005; 96372 ×2; 99284; J1170; J1200

== ENCOUNTER 2017-07-08 11:12 | Emergency (ER) | payer MEDICARE, OTHER ==
[~2017-07-08] VITALS: Ht 167.6 cm; Wt 86.2 kg
[2017-07-08] MEDS ORDERED: KENALOG-40 IM STA (11:55)
[2017-07-08] MEDS ORDERED: TORADOL IM STA (11:55)
[2017-07-08] MEDS ORDERED: TORADOL ONE (12:00)
[2017-07-08] MEDS ORDERED: KENALOG-40 ONE (12:00)
--- NOTE | 2017-07-08 12:12 | ER.PDOC ---
General Chief Complaint: General Complaint Stated Complaint: ARTHRITIS PAIN TRAVEL OUT OF US: No Time seen by MD: 12:08 Source: patient Exam Limitations: no limitations History of Present Illness Initial Comments Rheumatoid arthritis flare up for past 3 days Severity: moderate Associated Symptoms: denies symptoms Allergies: Coded Allergies: Sulfa (Sulfonamide Antibiotics) (Verified Allergy, Intermediate, Anaphylaxis Shock, 08/24/15) codeine (Verified Allergy, Intermediate, Rash, 08/24/15) morphine (Verified Allergy, Intermediate, Rash, 08/24/15) EXTREME VOMITING Home Meds Active Scripts Prednisone (PREDNISONE) 20 Mg Tablet, 20 MG PO BID for 7 Days, #14 TAB Prov:MEGHAN MARTINEZ MD 02/03/17 Reported Medications Ferrous Sulfate (FERROUS SULFATE) 325 Mg Tablet.dr, 325 MG PO DAILY 08/24/15 Lactulose (LACTULOSE) 10 Gm/15 Ml Solution, 10 GM PO DAILY 08/24/15 Fluticasone Propionate (Flonase Allergy Relief) 9.9 Ml [place].susp, 9.9 ML NS DAILY 08/24/15 Citalopram Hydrobromide (CELEXA) 20 Mg Tablet, 1 TAB PO DAILY, #30 TAB 2 Refills 08/24/15 Nifedipine (PROCARDIA XL) 60 Mg Tab.er.24, 1 TAB PO DAILY, #90 TAB 3 Refills 08/24/15 Tramadol Hcl (TRAMADOL HCL) 50 Mg Tablet, 50 MG PO Q6HR Y for PAIN, TABLET 03/01/15 Cyclobenzaprine Hcl (FLEXERIL) 10 Mg Tablet, 5 MG PO TID Y for PAIN, TABLET 03/01/15 Metoprolol Succinate (METOPROLOL SUCCINATE) 50 Mg Tab.er.24h, 50 MG PO HS 03/01/15 Tocilizumab (ACTEMRA) 80 Mg/4 Ml Vial, 80 MG IV EVERY 4 WEEKS, VIAL 12/30/13 Simvastatin (SIMVASTATIN) 80 Mg Tablet, 80 MG PO HS, TABLET 12/30/13 Lisinopril (LISINOPRIL) 40 Mg Tablet, 40 MG PO DAILY, TABLET 12/30/13 Aspirin (ASPIRIN) 81 Mg Tab.chew, 81 MG PO DAILY, TAB.CHEW 12/30/13 Omeprazole (OMEPRAZOLE) 20 Mg Tablet.dr, 20 MG PO DAILY 12/30/13 Past Medical History Medical History: coronary artery disease, COPD Surgical History: cardiac cath, , tonsillectomy Social History Smoking: less than 1 pack/day Alcohol Use: none Drug Use: none Review of Systems Constitutional: no symptoms reported Respiratory: no symptoms reported Cardiovascular: no symptoms reported Gastrointestinal: no symptoms reported Musculoskeletal: see HPI All Other Systems: Reviewed and Negative Physical Exam General Appearance: No Apparent Distress, WD/WN Respiratory: chest non-tender, lungs clear, normal breath sounds, no respiratory distress CVS: reg rate & rhythm, no murmur, no gallop, pulses nml, nml capillary refill Gastrointestinal: Normal Bowel Sounds, No Organomegaly, No Pulsatile Mass, Non Tender Back: Normal Inspection Extremities: Other (tenderness multiple joints) 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
[2017-07-08 12:34] VITALS: BP 114/68
== END 2017-07-08 12:24 | disposition home or self-care (01) ==
LOC: ER 11:12
DX: M06.9 Rheumatoid arthritis, unspecified (principal); I25.10 Atherosclerotic heart disease of native coronary artery without angina pectoris; J44.9 Chronic obstructive pulmonary disease, unspecified; F17.200 Nicotine dependence, unspecified, uncomplicated; Z79.82 Long term (current) use of aspirin; Z88.2 Allergy status to sulfonamides; Z88.5 Allergy status to narcotic agent
CPT/HCPCS: 96372 ×2; 99284; J1885; J3301

== ENCOUNTER 2017-09-11 06:23 | Emergency (ER) | payer MEDICARE, OTHER ==
[~2017-09-11] VITALS: Ht 167.6 cm; Wt 83.9 kg
--- NOTE | 2017-09-11 06:42 | NUR ---
ARRIVAL PATIENT ARRIVED TO ED5 VIA W/C WITH SPOUSE, C/O OF SEVERE ARTHRITIC PAIN FOR THE PAST 2 DAYS, DID TAKE 2 FLEXERIL AND 2 TRAMADOL AT APPROX 0400 THIS MORNING, PAIN NOT CONTROLLED, CAME TO ED FOR PAIN CONTROL.
[2017-09-11] MEDS ORDERED: SOLU-MEDROL ONE (06:48)
--- NOTE | 2017-09-11 06:49 | ER.PDOC ---
EBENEZER FALL MD 09/11/17 0649: General Chief Complaint: General Complaint Stated Complaint: ARTHIRITIS PAIN RT SHOULDER,LFT ARM TRAVEL OUT OF US: No Time seen by MD: 06:47 Source: patient, family Exam Limitations: no limitations History of Present Illness Initial Comments 72 year old white female with debilitating rheumatoid arthritis comes in with exacerbation. Takes medication regularly. Currently takes 4 mg on Prednisone. Afebrile. Pain symptoms are similar to previous visits. Timing/Duration: other (2 days) Severity: severe Allergies: Coded Allergies: Sulfa (Sulfonamide Antibiotics) (Verified Allergy, Intermediate, Anaphylaxis Shock, 08/24/15) codeine (Verified Allergy, Intermediate, Rash, 08/24/15) morphine (Verified Allergy, Intermediate, Rash, 08/24/15) EXTREME VOMITING Home Meds Active Scripts Prednisone (PREDNISONE) 20 Mg Tablet, 20 MG PO BID for 7 Days, #14 TAB Prov:MEGHAN MARTINEZ MD 02/03/17 Reported Medications Ferrous Sulfate (FERROUS SULFATE) 325 Mg Tablet.dr, 325 MG PO DAILY 08/24/15 Lactulose (LACTULOSE) 10 Gm/15 Ml Solution, 10 GM PO DAILY 08/24/15 Fluticasone Propionate (Flonase Allergy Relief) 9.9 Ml [place].susp, 9.9 ML NS DAILY 08/24/15 Citalopram Hydrobromide (CELEXA) 20 Mg Tablet, 1 TAB PO DAILY, #30 TAB 2 Refills 08/24/15 Nifedipine (PROCARDIA XL) 60 Mg Tab.er.24, 1 TAB PO DAILY, #90 TAB 3 Refills 08/24/15 Tramadol Hcl (TRAMADOL HCL) 50 Mg Tablet, 50 MG PO Q6HR Y for PAIN, TABLET 03/01/15 Cyclobenzaprine Hcl (FLEXERIL) 10 Mg Tablet, 5 MG PO TID Y for PAIN, TABLET 03/01/15 Metoprolol Succinate (METOPROLOL SUCCINATE) 50 Mg Tab.er.24h, 50 MG PO HS 03/01/15 Tocilizumab (ACTEMRA) 80 Mg/4 Ml Vial, 80 MG IV EVERY 4 WEEKS, VIAL 12/30/13 Simvastatin (SIMVASTATIN) 80 Mg Tablet, 80 MG PO HS, TABLET 12/30/13 Lisinopril (LISINOPRIL) 40 Mg Tablet, 40 MG PO DAILY, TABLET 12/30/13 Aspirin (ASPIRIN) 81 Mg Tab.chew, 81 MG PO DAILY, TAB.CHEW 12/30/13 Omeprazole (OMEPRAZOLE) 20 Mg Tablet.dr, 20 MG PO DAILY 12/30/13 Past Medical History Medical History: cardiac problems, other (rheumatoid arthritis) Surgical History: , hysterectomy, stent Family History Significant Family History: no pertinent family hx Social History Smoking: non-smoker Alcohol Use: none Drug Use: none Review of Systems Constitutional: no symptoms reported EENTM: no symptoms reported Respiratory: denies no symptoms reported, denies see HPI, denies cough, denies orthopnea, denies shortness of breath, denies stridor, denies wheezing, denies other Cardiovascular: denies no symptoms reported, denies see HPI, denies chest pain , denies edema, denies palpitations, denies syncope, denies other Gastrointestinal: denies no symptoms reported, denies see HPI, denies abdominal pain, denies constipation, denies diarrhea, denies nausea, denies vomiting, denies other Genitourinary: denies no symptoms reported, denies see HPI, denies discharge, denies dysuria, denies frequency, denies hematuria, denies pain, denies other Musculoskeletal: see HPI Skin: denies no symptoms reported, denies see HPI, denies change in color, denies change in hair/nails, denies dryness, denies lesions, denies lumps, denies rash, denies other Hematologic/Lymphatic: denies no symptoms reported, denies see HPI, denies anemia, denies blood clots, denies easy bleeding, denies easy bruising, denies swollen glands, denies other Immunological/Allergic: denies no symptoms reported, denies see HPI, denies food allergy, denies grass allergy, denies mold allergy, denies pollen allergy, denies HIV/AIDS, denies transplant Physical Exam General Appearance: No Apparent Distress, WD/WN EENT: eyes nml inspection, nml ENT inspection, pharynx nml Neck: Non-Tender, Full Range of Motion, Supple, Normal Inspection Respiratory: chest non-tender, lungs clear, normal breath sounds, no respiratory distress, no accessory muscle use CVS: reg rate & rhythm, no murmur Gastrointestinal: Normal Bowel Sounds, No Organomegaly Extremities: Other (deforming arthritis) 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 as Tested, No Motor/Sensory Deficits, Alert Skin: Normal Color, Warm/Dry Lymphatic: No Adenopathy, Axilla Node Tender (R) Departure Disposition: 01 HOME, SELF-CARE Impression: Primary Impression: Rheumatoid arthritis flare Condition: Improved Referrals: FERMIN DASILVA MD (PCP) PRIMARY CARE PROVIDER Additional Instructions: Continue home medications F/U with your PCP in 2-3 days JOSE RAFAEL BEAUCHAMP MD 09/11/17 0750: General Chief Complaint: General Complaint Stated Complaint: ARTHIRITIS PAIN RT SHOULDER,LFT ARM History of Present Illness Allergies: Coded Allergies: Sulfa (Sulfonamide Antibiotics) (Verified Allergy, Intermediate, Anaphylaxis Shock, 08/24/15) codeine (Verified Allergy, Intermediate, Rash, 08/24/15) morphine (Verified Allergy, Intermediate, Rash, 08/24/15) EXTREME VOMITING Home Meds Active Scripts Prednisone (PREDNISONE) 20 Mg Tablet, 20 MG PO BID for 7 Days, #14 TAB Prov:MEGHAN MARTINEZ MD 02/03/17 Reported Medications Ferrous Sulfate (FERROUS SULFATE) 325 Mg Tablet.dr, 325 MG PO DAILY 08/24/15 Lactulose (LACTULOSE) 10 Gm/15 Ml Solution, 10 GM PO DAILY 08/24/15 Fluticasone Propionate (Flonase Allergy Relief) 9.9 Ml [place].susp, 9.9 ML NS DAILY 08/24/15 Citalopram Hydrobromide (CELEXA) 20 Mg Tablet, 1 TAB PO DAILY, #30 TAB 2 Refills 08/24/15 Nifedipine (PROCARDIA XL) 60 Mg Tab.er.24, 1 TAB PO DAILY, #90 TAB 3 Refills 08/24/15 Tramadol Hcl (TRAMADOL HCL) 50 Mg Tablet, 50 MG PO Q6HR Y for PAIN, TABLET 03/01/15 Cyclobenzaprine Hcl (FLEXERIL) 10 Mg Tablet, 5 MG PO TID Y for PAIN, TABLET 03/01/15 Metoprolol Succinate (METOPROLOL SUCCINATE) 50 Mg Tab.er.24h, 50 MG PO HS 03/01/15 Tocilizumab (ACTEMRA) 80 Mg/4 Ml Vial, 80 MG IV EVERY 4 WEEKS, VIAL 12/30/13 Simvastatin (SIMVASTATIN) 80 Mg Tablet, 80 MG PO HS, TABLET 12/30/13 Lisinopril (LISINOPRIL) 40 Mg Tablet, 40 MG PO DAILY, TABLET 12/30/13 Aspirin (ASPIRIN) 81 Mg Tab.chew, 81 MG PO DAILY, TAB.CHEW 12/30/13 Omeprazole (OMEPRAZOLE) 20 Mg Tablet.dr, 20 MG PO DAILY 12/30/13 Results/Orders Results/Orders Laboratory Tests Test 09/11/17 06:58 White Blood Count 7.6 10^3/uL (4.5-11.0) Red Blood Count 5.51 10^6/uL (4.00-5.20) Hemoglobin 13.7 g/dL (12.0-15.0) Hematocrit 43.8 % (36.0-46.0) Mean Corpuscular Volume 79.5 fL (78-100) Mean Corpuscular Hemoglobin 24.9 pg (26-34) Mean Corpuscular Hemoglobin Concent 31.3 g/dL (33-37) Red Cell Distribution Width 16.6 % (11.5-14.5) Platelet Count 278 10^3/uL (150-400) Mean Platelet Volume 10.0 fL (7.8-11.0) Neutrophils (%) (Auto) 61.2 % (41.0-85.0) Lymphocytes (%) (Auto) 20.2 % (24.0-44.0) Monocytes (%) (Auto) 11.8 % (5.0-12.0) Neutrophils # (Auto) 4.7 10^3/uL (1.8-7.7) Lymphocytes # (Auto) 1.5 10^3/uL (1.0-4.8) Monocytes # (Auto) 0.9 10^3/uL (0.3-0.8) Absolute Immature Granulocyte (auto 0 10^3 u/L (0-2) Eosinophils % 5.8 % (0.0-5.0) Basophils % 1.0 % (0.0-0.2) Basophils # 0.1 10^3/uL (0.0-0.1) Erythrocyte Sedimentation Rate Pending Eosinophil Count 0.4 10^3/uL (0.0-0.2) Sodium Level 133 mmol/L (132-145) Potassium Level 4.1 mmol/L (3.6-5.2) Chloride Level 100.0 mmol/L (96-109) Carbon Dioxide Level 26.1 mmol/L (20.0-32) Anion Gap 11.0 Blood Urea Nitrogen 14 mg/dL (7-18) Creatinine 1.00 mg/dL (0.59-1.40) Estimated GFR () 66.1 (>/=60) BUN/Creatinine Ratio 14.0 Glucose Level 90 mg/dL (70-110) Calcium Level 9.1 mg/dL (8.4-10.5) Total Bilirubin 0.4 mg/dL (0.2-1.0) Aspartate Amino Transf (AST/SGOT) 23 U/L (0-35) Alanine Aminotransferase (ALT/SGPT) 34 U/L (12-78) Alkaline Phosphatase 79 U/L (50-136) C-Reactive Protein < 0.05 mg/dL (0.00-5.00) Total Protein 6.9 g/dL (6.4-8.2) Albumin 3.8 g/dL (3.4-5.0) Globulin 3.1 Percent Immature Gran (Cell Imm) 0.00 % (0.00-0.50) Administered Medications Medications (Trade) Dose Ordered Sig/Tamiko Route PRN Reason Start Time Stop Time Status Last Admin Dose Admin Methylprednisolone Sodium Succinate (Solu-Medrol) 125 mg STAT STAT IM 09/11/17 06:50 09/11/17 06:53 DC 09/11/17 06:54 Departure Time of Disposition: 07:48 Disposition: 01 HOME, SELF-CARE Impression: Primary Impression: Rheumatoid arthritis flare Condition: Improved Referrals: FERMIN DASILVA MD (PCP) PRIMARY CARE PROVIDER Additional Instructions: Continue home medications F/U with your PCP in 2-3 days Duration or Time Spent with Pa: 40 mins EBENEZER FALL MD Sep 11, 2017 06:49 JOSE RAFAEL BEAUCHAMP MD Sep 11, 2017 07:50
[2017-09-11] MEDS ORDERED: SOLU-MEDROL IM STA (06:50)
[2017-09-11 07:02] LABS: BASOPHIL # 0.1 10^3/uL (0.0-0.1); EOSINOPHIL # 0.4 10^3/uL (0.0-0.2); EOSINOPHIL % 5.8 % (0.0-5.0); HEMOGLOBIN 13.7 g/dL (12.0-15.0); LYMPHOCYTES # 1.5 10^3/uL (1.0-4.8); LYMPHOCYTES % 20.2 % (24.0-44.0); MEAN CELL HGB 24.9 pg (26-34); MEAN CELL HGB CONCENTRATION 31.3 g/dL (33-37); MEAN CORP VOLUME 79.5 fL (78-100); MONOCYTES # 0.9 10^3/uL (0.3-0.8); MONOCYTES % 11.8 % (5.0-12.0); NEUTROPHIL # 4.7 10^3/uL (1.8-7.7); NEUTROPHILS % 61.2 % (41.0-85.0); RED CELL DISTRIBUTION WIDTH 16.6 % (11.5-14.5); WHITE BLOOD CELL 7.6 10^3/uL (4.5-11.0)
[2017-09-11 07:28] LABS: ALANINE AMINOTRANSFERASE(ML) 34 U/L (12-78); ALKALINE PHOSPHATASE 79 U/L (50-136); ASPARTATE AMINO TRANSFERASE 23 U/L (0-35); CALCIUM 9.1 mg/dL (8.4-10.5); CARBON DIOXIDE 26.1 mmol/L (20.0-32); GLUCOSE 90 mg/dL (70-110)
[2017-09-11] MEDS ORDERED: TORADOL IM STA (07:47)
[2017-09-11] MEDS ORDERED: TORADOL ONE (07:50)
[2017-09-11 08:07] VITALS: BP 111/63
== END 2017-09-11 08:10 | disposition home or self-care (01) ==
LOC: ER 06:23
DX: M06.9 Rheumatoid arthritis, unspecified (principal); Z88.2 Allergy status to sulfonamides; Z88.5 Allergy status to narcotic agent; Z79.899 Other long term (current) drug therapy; Z79.82 Long term (current) use of aspirin
CPT/HCPCS: 36415; 80053; 85025; 85651; 86140; 96372 ×2; 99284; J1885; J2930

== ENCOUNTER 2017-10-22 00:13 | Emergency (ER) | payer MEDICARE, OTHER ==
[~2017-10-22] VITALS: Ht 167.6 cm; Wt 81.6 kg
[2017-10-22 00:23] VITALS: BP 150/78
[2017-10-22] MEDS ORDERED: DILAUDID IM STA (00:35)
[2017-10-22] MEDS ORDERED: ZOFRAN ODT SL STA (00:35)
[2017-10-22] MEDS ORDERED: ZOFRAN ODT ONE (00:37)
[2017-10-22] MEDS ORDERED: DILAUDID ONE (00:37)
--- NOTE | 2017-10-22 01:06 | ER.PDOC ---
General Chief Complaint: Neck/Upper back Pain Stated Complaint: NECK PAIN Time seen by MD: 12:30 Source: patient, family Exam Limitations: no limitations History of Present Illness Initial Comments 72 year old white female with chronic pain symptoms related to severe RA comes in with increasing neck pain. No history of trauma. Takes medications regularly Timing/Duration: just prior to arrival Severity/Quality: severe Associated Symptoms: muscle spasms Prior symptoms/Treatment: Similar symptoms previous Allergies: Coded Allergies: Sulfa (Sulfonamide Antibiotics) (Verified Allergy, Intermediate, Anaphylaxis Shock, 08/24/15) codeine (Verified Allergy, Intermediate, Rash, 08/24/15) morphine (Verified Allergy, Intermediate, Rash, 08/24/15) EXTREME VOMITING Home Meds Active Scripts Prednisone (PREDNISONE) 20 Mg Tablet, 20 MG PO BID for 7 Days, #14 TAB Prov:MEGHAN MARTINEZ MD 02/03/17 Reported Medications Ferrous Sulfate (FERROUS SULFATE) 325 Mg Tablet.dr, 325 MG PO DAILY 08/24/15 Lactulose (LACTULOSE) 10 Gm/15 Ml Solution, 10 GM PO DAILY 08/24/15 Fluticasone Propionate (Flonase Allergy Relief) 9.9 Ml [place].susp, 9.9 ML NS DAILY 08/24/15 Citalopram Hydrobromide (CELEXA) 20 Mg Tablet, 1 TAB PO DAILY, #30 TAB 2 Refills 08/24/15 Nifedipine (PROCARDIA XL) 60 Mg Tab.er.24, 1 TAB PO DAILY, #90 TAB 3 Refills 08/24/15 Tramadol Hcl (TRAMADOL HCL) 50 Mg Tablet, 50 MG PO Q6HR Y for PAIN, TABLET 03/01/15 Cyclobenzaprine Hcl (FLEXERIL) 10 Mg Tablet, 5 MG PO TID Y for PAIN, TABLET 03/01/15 Metoprolol Succinate (METOPROLOL SUCCINATE) 50 Mg Tab.er.24h, 50 MG PO HS 03/01/15 Tocilizumab (ACTEMRA) 80 Mg/4 Ml Vial, 80 MG IV EVERY 4 WEEKS, VIAL 12/30/13 Simvastatin (SIMVASTATIN) 80 Mg Tablet, 80 MG PO HS, TABLET 12/30/13 Lisinopril (LISINOPRIL) 40 Mg Tablet, 40 MG PO DAILY, TABLET 12/30/13 Aspirin (ASPIRIN) 81 Mg Tab.chew, 81 MG PO DAILY, TAB.CHEW 12/30/13 Omeprazole (OMEPRAZOLE) 20 Mg Tablet.dr, 20 MG PO DAILY 12/30/13 Past Medical History Medical History: cardiac problems, COPD, other (RA) Surgical History: , hysterectomy, stent, tonsillectomy, tubal Family History Significant Family History: no pertinent family hx Social History Smoking: greater than 1 pack/day Alcohol Use: none Drug Use: none Review of Systems Constitutional: no symptoms reported EENTM: no symptoms reported Respiratory: no symptoms reported Cardiovascular: no symptoms reported Gastrointestinal: no symptoms reported Genitourinary: no symptoms reported Musculoskeletal: see HPI Skin: no symptoms reported Psychiatric/Neurological: no symptoms reported Physical Exam General Appearance: No Apparent Distress, WD/WN, Anxious HEENT: PERRL/EOMI, Normal ENT Inspection, TMs Normal, Pharynx Normal Neck: Limited Range of Motion, Muscle Spasm, Painful Range of Motion, Spinous Processes Tender, Stiff Neck Cardiovascular/Respiratory: Regular Rate, Rhythm, No M/R/G, Normal Peripheral Pulses, No JVD, Normal Breath Sounds, No Respiratory Distress Gastrointestinal: Normal Bowel Sounds, No Organomegaly, No Pulsatile Mass, Non Tender, Soft Back: Normal Inspection, No CVA Tenderness, No Vertebral Tenderness Extremities: No Evidence of Injury, Normal Range of Motion, Non-Tender, No Pedal Edema, Pelvis Stable Neuro/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: 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, 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/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, mood/effect nml, No Motor/Sensory Deficits, Relexes nml Skin: Normal Color, Warm/Dry Results/Orders Results/Orders Administered Medications Medications (Trade) Dose Ordered Sig/Tamiko Route PRN Reason Start Time Stop Time Status Last Admin Dose Admin Hydromorphone HCl (Dilaudid) 2 mg STAT STAT IM 10/22/17 00:35 10/22/17 00:37 DC 10/22/17 00:40 Ondansetron HCl (Zofran Odt) 4 mg STAT STAT SL 10/22/17 00:35 10/22/17 00:37 DC 10/22/17 00:42 Progress Progress Pain relieved by Dilaudid Departure Time of Disposition: 01:04 Disposition: 01 HOME, SELF-CARE Impression: Primary Impression: Neck pain Condition: Stable Referrals: FERMIN DASILVA MD (PCP) PRIMARY CARE PROVIDER Comments Follow up PCP. 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
[2017-10-22 01:24] VITALS: BP 149/83
[2017-10-22 01:33] VITALS: BP 149/83
== END 2017-10-22 01:27 | disposition home or self-care (01) ==
LOC: ER 00:13
DX: M54.2 Cervicalgia (principal); F17.200 Nicotine dependence, unspecified, uncomplicated; J44.9 Chronic obstructive pulmonary disease, unspecified; Z79.899 Other long term (current) drug therapy; Z88.2 Allergy status to sulfonamides; Z88.5 Allergy status to narcotic agent
CPT/HCPCS: 96372; 99283; J1170; Q0162

== ENCOUNTER 2017-10-22 12:28 | Emergency (ER) | payer MEDICARE, OTHER ==
[~2017-10-22] VITALS: Ht 167.6 cm; Wt 81.6 kg
[2017-10-22 12:33] VITALS: BP 108/64
[2017-10-22] MEDS ORDERED: KENALOG-40 IM STA (12:53)
[2017-10-22] MEDS ORDERED: TORADOL IM STA (12:53)
[2017-10-22] MEDS ORDERED: KENALOG-40 ONE (12:58)
[2017-10-22] MEDS ORDERED: TORADOL ONE (12:58)
--- NOTE | 2017-10-22 12:59 | ER.PDOC ---
General Chief Complaint: Neck/Upper back Pain Stated Complaint: NECK PAIN TRAVEL OUT OF US: No Time seen by MD: 12:54 Source: patient Exam Limitations: no limitations History of Present Illness Initial Comments RA flare up with pain in neck. Denies any injury. Seen in the ED for same last night and received Dilaudid but no improvement. Severity: moderate Associated Symptoms: denies symptoms Allergies: Coded Allergies: Sulfa (Sulfonamide Antibiotics) (Verified Allergy, Intermediate, Anaphylaxis Shock, 08/24/15) codeine (Verified Allergy, Intermediate, Rash, 08/24/15) morphine (Verified Allergy, Intermediate, Rash, 08/24/15) EXTREME VOMITING Home Meds Active Scripts Prednisone (PREDNISONE) 20 Mg Tablet, 20 MG PO BID for 7 Days, #14 TAB Prov:MEGHAN MARTINEZ MD 02/03/17 Reported Medications Ferrous Sulfate (FERROUS SULFATE) 325 Mg Tablet.dr, 325 MG PO DAILY 08/24/15 Lactulose (LACTULOSE) 10 Gm/15 Ml Solution, 10 GM PO DAILY 08/24/15 Fluticasone Propionate (Flonase Allergy Relief) 9.9 Ml [place].susp, 9.9 ML NS DAILY 08/24/15 Citalopram Hydrobromide (CELEXA) 20 Mg Tablet, 1 TAB PO DAILY, #30 TAB 2 Refills 08/24/15 Nifedipine (PROCARDIA XL) 60 Mg Tab.er.24, 1 TAB PO DAILY, #90 TAB 3 Refills 08/24/15 Tramadol Hcl (TRAMADOL HCL) 50 Mg Tablet, 50 MG PO Q6HR Y for PAIN, TABLET 03/01/15 Cyclobenzaprine Hcl (FLEXERIL) 10 Mg Tablet, 5 MG PO TID Y for PAIN, TABLET 03/01/15 Metoprolol Succinate (METOPROLOL SUCCINATE) 50 Mg Tab.er.24h, 50 MG PO HS 03/01/15 Tocilizumab (ACTEMRA) 80 Mg/4 Ml Vial, 80 MG IV EVERY 4 WEEKS, VIAL 12/30/13 Simvastatin (SIMVASTATIN) 80 Mg Tablet, 80 MG PO HS, TABLET 12/30/13 Lisinopril (LISINOPRIL) 40 Mg Tablet, 40 MG PO DAILY, TABLET 12/30/13 Aspirin (ASPIRIN) 81 Mg Tab.chew, 81 MG PO DAILY, TAB.CHEW 12/30/13 Omeprazole (OMEPRAZOLE) 20 Mg Tablet., 20 MG PO DAILY 12/30/13 Past Medical History Medical History: congestive heart failure, COPD, hypertension Surgical History: , hysterectomy, stent, tonsillectomy, tubal Social History Smoking: less than 1 pack/day Alcohol Use: none Drug Use: none Review of Systems Constitutional: no symptoms reported Respiratory: no symptoms reported Cardiovascular: no symptoms reported Gastrointestinal: no symptoms reported Musculoskeletal: see HPI All Other Systems: Reviewed and Negative Physical Exam General Appearance: No Apparent Distress, WD/WN EENT: eyes nml inspection Neck: Supple, Tender Midline Respiratory: chest non-tender, lungs clear, normal breath sounds, no respiratory distress CVS: reg rate & rhythm, no murmur, no gallop, pulses nml, nml capillary refill Gastrointestinal: Normal Bowel Sounds, No Organomegaly, No Pulsatile Mass Back: Normal Inspection Extremities: Normal Range of Motion 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
[2017-10-22 13:49] VITALS: BP 108/64
== END 2017-10-22 13:38 | disposition home or self-care (01) ==
LOC: ER 12:28 → EDBD 12:28 → ER 13:38
DX: M06.9 Rheumatoid arthritis, unspecified (principal); I11.0 Hypertensive heart disease with heart failure; I50.9 Heart failure, unspecified; J44.9 Chronic obstructive pulmonary disease, unspecified; F17.200 Nicotine dependence, unspecified, uncomplicated; Z79.82 Long term (current) use of aspirin; Z88.2 Allergy status to sulfonamides; Z88.5 Allergy status to narcotic agent; Z90.710 Acquired absence of both cervix and uterus; Z79.899 Other long term (current) drug therapy
CPT/HCPCS: 96372 ×2; 99284; J1885; J3301

== ENCOUNTER 2017-11-02 07:41 | Observation (INO) | payer MEDICARE, OTHER ==
[~2017-11-02] VITALS: Ht 167.6 cm; Wt 79.6 kg
[2017-11-02 07:48] VITALS: BP 126/74
--- NOTE | 2017-11-02 07:52 | PCM.EKG ---
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
[2017-11-02] MEDS ORDERED: DECADRON IH STA (07:56)
[2017-11-02] MEDS ORDERED: SUBLIMAZE IV STA (07:56)
[2017-11-02] MEDS ORDERED: DUONEB 0.5 MG-3 MG/3 ML SOLN IH STA (07:56)
[2017-11-02] MEDS ORDERED: ZOFRAN ODT SL STA (07:56)
--- NOTE | 2017-11-02 08:13 | ER.PDOC ---
General Chief Complaint: Dyspnea/Respdistress Stated Complaint: CHEST PAIN/ UPPER ABDOMINAL PAIN Time seen by MD: 08:00 Source: patient Exam Limitations: no limitations History of Present Illness Timing/Duration: 24 hours Severity/Quality: moderate Radiation: no radiation Associated Symptoms: chest pain, nausea/vomiting Exacerbated by: deep breaths Relieved By: remaining still Allergies: Coded Allergies: Sulfa (Sulfonamide Antibiotics) (Verified Allergy, Intermediate, Anaphylaxis Shock, 08/24/15) codeine (Verified Allergy, Intermediate, Rash, 08/24/15) morphine (Verified Allergy, Intermediate, Rash, 08/24/15) EXTREME VOMITING Home Meds Active Scripts Prednisone (PREDNISONE) 20 Mg Tablet, 20 MG PO BID for 7 Days, #14 TAB Prov:MEGHAN MARTINEZ MD 02/03/17 Reported Medications Ferrous Sulfate (FERROUS SULFATE) 325 Mg Tablet.dr, 325 MG PO DAILY 08/24/15 Lactulose (LACTULOSE) 10 Gm/15 Ml Solution, 10 GM PO DAILY 08/24/15 Fluticasone Propionate (Flonase Allergy Relief) 9.9 Ml [place].susp, 9.9 ML NS DAILY 08/24/15 Citalopram Hydrobromide (CELEXA) 20 Mg Tablet, 1 TAB PO DAILY, #30 TAB 2 Refills 08/24/15 Nifedipine (PROCARDIA XL) 60 Mg Tab.er.24, 1 TAB PO DAILY, #90 TAB 3 Refills 08/24/15 Tramadol Hcl (TRAMADOL HCL) 50 Mg Tablet, 50 MG PO Q6HR Y for PAIN, TABLET 03/01/15 Cyclobenzaprine Hcl (FLEXERIL) 10 Mg Tablet, 5 MG PO TID Y for PAIN, TABLET 03/01/15 Metoprolol Succinate (METOPROLOL SUCCINATE) 50 Mg Tab.er.24h, 50 MG PO HS 03/01/15 Tocilizumab (ACTEMRA) 80 Mg/4 Ml Vial, 80 MG IV EVERY 4 WEEKS, VIAL 12/30/13 Simvastatin (SIMVASTATIN) 80 Mg Tablet, 80 MG PO HS, TABLET 12/30/13 Lisinopril (LISINOPRIL) 40 Mg Tablet, 40 MG PO DAILY, TABLET 12/30/13 Aspirin (ASPIRIN) 81 Mg Tab.chew, 81 MG PO DAILY, TAB.CHEW 12/30/13 Omeprazole (OMEPRAZOLE) 20 Mg Tablet.dr, 20 MG PO DAILY 12/30/13 Vital Signs First Vital Signs Date Time Temp Pulse Resp B/P (MAP) Pulse Ox O2 Delivery O2 Flow Rate FiO2 11/02/17 07:42 97.6 88 20 85 11/02/17 07:48 126/74 (91) Nasal Cannula Last Vital Signs Date Time Temp Pulse Resp B/P (MAP) Pulse Ox O2 Delivery O2 Flow Rate FiO2 11/02/17 07:48 97.6 88 20 126/74 (91) 85 Nasal Cannula Past Medical History Medical History: cardiac problems, COPD, hypertension Surgical History: cardiac cath, stent LMP (females 10-50): postmenopause Social History Smoking: greater than 1 pack/day Alcohol Use: none Drug Use: none Reviewed Nursing Reviewed: Vital Signs, Abn. Noted All Other Systems: Reviewed and Negative Physical Exam General Appearance: Anxious HEENT: PERRL/EOMI, Normal ENT Inspection, TMs Normal, Pharynx Normal Neck: Non-Tender, Full Range of Motion, Supple, Normal Inspection Respiratory: rales Cardiovascular: Normal Peripheral Pulses, Regular Rate, Rhythm, No Edema, No Gallop, No JVD, No Murmur Gastrointestinal: Tenderness Back: Normal Inspection, No CVA Tenderness, No Vertebral Tenderness Extremities: Normal Range of Motion, Non-Tender, Normal Inspection, No Pedal Edema, No Calf Tenderness, Normal Capillary Refill, Pelvis Stable Neurologic/Psychiatric: warp tester II-XII NML as Tested, No Motor/Sensory Deficits, Alert, Normal Mood/Affect, Oriented x 3 Skin: Normal Color, Warm/Dry Lymphatic: No Adenopathy Results/Orders Results/Orders lactic acid -2.3 EKG/XRAY/CT/US EKG: NSR, no ST T wave changes Course Blood Pressure Systolic: 126 Blood Pressure Diastolic: 74 Blood Pressure Mean: 91 Departure Time of Disposition: 09:00 Disposition: 01 HOME, SELF-CARE Impression: Primary Impression: COPD (chronic obstructive pulmonary disease) Additional Impression: Biliary colic Condition: Improved Referrals: FERMIN DASILVA MD (PCP) PRIMARY CARE PROVIDER Duration or Time Spent with Pa: 2HRS Problem Qualifiers SARAH EARL MD Nov 02, 2017 08:13
[2017-11-02 08:15] LABS: BASOPHIL % 0.3 % (0.0-0.2); EOSINOPHIL # 0.3 10^3/uL (0.0-0.2); EOSINOPHIL % 2.7 % (0.0-5.0); HEMOGLOBIN 13.6 g/dL (12.0-15.0); LYMPHOCYTES # 0.3 10^3/uL (1.0-4.8); LYMPHOCYTES % 2.9 % (24.0-44.0); MEAN CELL HGB 25.1 pg (26-34); MEAN CELL HGB CONCENTRATION 31.9 g/dL (33-37); MEAN CORP VOLUME 78.8 fL (78-100); MONOCYTES # 0.5 10^3/uL (0.3-0.8); MONOCYTES % 4.6 % (5.0-12.0); NEUTROPHIL # 9.2 10^3/uL (1.8-7.7); NEUTROPHILS % 89.3 % (41.0-85.0); RED CELL DISTRIBUTION WIDTH 16.8 % (11.5-14.5); WHITE BLOOD CELL 10.4 10^3/uL (4.5-11.0)
[2017-11-02 08:47] LABS: ALANINE AMINOTRANSFERASE(ML) 26 U/L (12-78); ALKALINE PHOSPHATASE 77 U/L (50-136); ASPARTATE AMINO TRANSFERASE 24 U/L (0-35); CALCIUM 8.6 mg/dL (8.4-10.5); CARBON DIOXIDE 23.2 mmol/L (20.0-32); GLUCOSE 105 mg/dL (70-110)
[2017-11-02 08:50] VITALS: BP 98/54
--- NOTE | 2017-11-02 09:16 | DIREP ---
PROCEDURE:CHEST 2 VIEWS COMPARISON:[facility], CR, XRAY CHEST 2 VWS, 09/30/2016, 01:31 PM. [facility], CT, CTA CHEST, 02/01/2017, 07:19 PM. [facility], CR, XRAY CHEST SINGLE VW, 02/01/2017, 05:03 PM. INDICATIONS:CAP FINDINGS: LUNGS/PLEURA:Minimal opacity in the left lung base may be secondary to atelectasis, difficult to exclude early infiltrate. No confluent pulmonary infiltrate. No effusions. No pneumothorax. VASCULATURE:Unremarkable pulmonary vasculature. CARDIAC:No cardiac silhouette abnormality or cardiomegaly. MEDIASTINUM:No visible mass or adenopathy. BONES:Chronic wedge deformity in the lower thoracic spine, unchanged. Advanced degenerative changes at the shoulders. OTHER:Negative. CONCLUSION: Minimal opacity at the left lung base may be secondary to atelectasis, difficult to exclude early infiltrate. Dictated by: Mary Ramirez MD on 11/02/2017 at 09:13 AM
--- NOTE | 2017-11-02 09:27 | NUR ---
DR EUGENIO EARL ON PHONE WITH DR BECKER
--- NOTE | 2017-11-02 09:31 | NUR ---
Clare moran in ED - 11/02/17 at 0933 by RIZWANA JONELLE BAUMAN, CALLED WITH CREATININE OF 1.26 CT NOTIFIED OF CREATININE FOR CHEST CT. PER MYRNA, SHE WILL LET THE TECHS KNOW
--- NOTE | 2017-11-02 09:42 | DIREP ---
PROCEDURE:US ABDOMEN LIMITED(SINGLE ORGAN-QUAD) COMPARISON:None. INDICATIONS:RUQ PAIN FINDINGS: CBD:0.2 cm GALLBLADDER:0.2 cm RIGHT KIDNEY:8.5 x 4.6 x 3.6 cm PANCREAS:The pancreas is largely obscured by bowel gas shadowing. LIVER:Increased hepatic echotexture consistent with hepatic steatosis. GALLBLADDER:Sludge is seen in the gallbladder lumen. No evidence of echogenic/shadowing gallstones. Gallbladder is not tender to ultrasound transducer palpation. BILIARY:There is no biliary ductal dilatation. RIGHT KIDNEY:Normal. No hydronephrosis. OTHER:Negative. No ascites is identified. CONCLUSION: 1. Biliary sludge with no evidence of gallstones or gallbladder tenderness. No biliary ductal dilatation. 2. If there is strong clinical suspicion that gallbladder disease is the cause of the patient's presenting symptoms, radionuclide hepatobiliary scan with gallbladder ejection fraction measurement may be obtained for further evaluation. 3. Hepatic steatosis. Dictated by: DOMINIQUE Physician on 11/02/2017 at 09:13 AM ld
[2017-11-02 09:59] VITALS: BP 96/56
[2017-11-02 10:00] VITALS: BP 103/58
--- NOTE | 2017-11-02 10:00 | NUR ---
ARRIVAL PT ARRIVED FROM ER AT THIS TIME. REPORT RECEIVED FROM A LONG RN AND ASSUMED CARE OF PT
[2017-11-02 11:20] LABS: BASOPHIL 3 % (0-2); EOSINOPHIL 5 % (1-4); LYMPHOCYTE 4 % (25-36); MONOCYTE 4 % (3-9); SEGMENTED NEUTROPHILS 89 % (31-76)
[2017-11-02 11:21] LABS: DIFFERENTIAL COMMENT NORMAL
[2017-11-02] MEDS ORDERED: DUONEB 0.5 MG-3 MG/3 ML SOLN IH SCH (11:30)
[2017-11-02] MEDS ORDERED: TORADOL IV STA (12:34)
[2017-11-02] MEDS ORDERED: NS 1000ML 1,000 ML ONE (12:47)
[2017-11-02] MEDS: NS 1000ML 1,000 ML IV ONE ×2 (12:51→12:57)
[2017-11-02] MEDS: HNS 1000ML/KCL 20MEQ 1,000 ML IV SCH (12:57)
[2017-11-02] MEDS: LOVENOX SQ SCH (12:59)
[2017-11-02] MEDS ORDERED: FLEXERIL PO PRN (13:00)
[2017-11-02] MEDS ORDERED: DUONEB 0.5 MG-3 MG/3 ML SOLN IH ONE (13:55)
[2017-11-02] MEDS: DUONEB 0.5 MG-3 MG/3 ML SOLN IH SCH ×2 (14:17→20:35)
[2017-11-02] MEDS ORDERED: FLUT1DIS3 IH (14:53)
[2017-11-02] MEDS ORDERED: PRED2.5T PO (14:53)
[2017-11-02] MEDS ORDERED: CITA40TA5 PO (14:53)
[2017-11-02] MEDS ORDERED: SENN-82 PO (14:53)
[2017-11-02] MEDS ORDERED: PANT40TA3 PO (14:53)
[2017-11-02] MEDS ORDERED: DOCU-123 PO (14:53)
[2017-11-02] MEDS ORDERED: ALBU2.5V12 NEB (14:53)
[2017-11-02] MEDS ORDERED: GABA100C7 PO (14:57)
[2017-11-02 15:30] VITALS: BP 102/60
--- NOTE | 2017-11-02 18:30 | NUR ---
REPORT REPORT GIVEN TO Rahul GASCA LVN AND RELINQUISHED CARE
--- NOTE | 2017-11-02 18:40 | HPH ---
ADMIT DATE: 11/02/2017 The patient is being placed under observation to Med/Surg. PRIMARY CARE PHYSICIAN: Kwame Worley MD ADMITTING DIAGNOSES: 1. COPD exacerbation with hypoxia. 2. Abdominal pain with shortness of breath. 3. Rheumatoid arthritis, coronary artery disease, hypertension, depression. CHIEF COMPLAINT: Coughing and now having pain in my lower chest. HISTORY OF PRESENT ILLNESS: The patient is a 72-year-old female who has been having increasing coughing and congestion for the past couple of days. She has coughed a lot with productive sputum yesterday and today she woke up with intense pain to her diaphragm area. I believe this is all due to her coughing lately and now she is having the pain from it. She denies any fevers. No chills. She does have some shortness of breath reported. No abdominal pains, no diarrhea. She is constipated. No dysuria, no syncope, no lethargy. PAST MEDICAL HISTORY: Significant for COPD, coronary artery disease, hypertension, hyperlipidemia, depression and osteopenia. PAST SURGICAL HISTORY: Cataract removal, , tubal ligation, hysterectomy, right wrist tendon repair. SOCIAL HISTORY: She does have history of smoking, no alcohol, no illicit drugs. FAMILY HISTORY: Asked and noncontributory for this admission. MEDICATIONS: She is on include aspirin, Celexa, Flexeril, ferrous sulfate, Flonase, lactulose, lisinopril, metoprolol, nifedipine, omeprazole, prednisone, simvastatin, Actemra infusion and tramadol as needed. PHYSICAL EXAMINATION: INITIAL VITAL SIGNS: Temperature is 97.6, pulse rate 107, respirations 20, blood pressure 126/74, O2 sats were initially 85%, but once on oxygen she jumped up to 91%. My physical exam is as follows: GENERAL She is in no acute distress, awake and alert. HEENT: Oropharynx is clear. NECK: Supple. HEART: S1, S2 audible. LUNGS: Had some diminished breath sounds at the right base. ABDOMEN: Good bowel sounds, soft abdomen, no rebound, no guarding noted. She did not have a Phillip sign. LABORATORY DATA: Labs were drawn. White count was normal, hemoglobin of 13.6, platelet count 243. Coags were normal. D-dimer is 1.28. Chemistry panel looked okay, proBNP was 147. Amylase and lipase were normal. IMAGING STUDIES: Abdominal ultrasound did show biliary sludge, but no evidence of gallstones. She did not have a Phillip sign by ultrasound. She has some hepatic steatosis noted. Chest x-ray showed some minimal opacity in left lung base, probably atelectasis. ASSESSMENT: We have this 72-year-old female with COPD exacerbation and now some diaphragmatic pain due to coughing and I will put her on DuoNeb treatments and incentive spirometry and follow her clinically overnight. I do not believe she has gallbladder disease at this point. I will give her a shot of Toradol for her overall pains and see how she will do. Amparo Gamboa MD DR: COLETTE/lucy JOB# [id number]
[2017-11-02] MEDS: ULTRAM PO PRN (19:07)
[2017-11-02] MEDS ORDERED: TESSALON PERLE PO PRN (20:00)
[2017-11-02] MEDS: PREDNISONE PO SCH (20:30)
[2017-11-02 20:46] VITALS: BP 122/65
[2017-11-02] MEDS ORDERED: ZOCOR PO SCH (21:00)
[2017-11-02] MEDS ORDERED: TOPROL XL PO SCH (21:00)
[2017-11-02] MEDS: ZOFRAN IV PRN (22:20)
[2017-11-03 01:11] VITALS: BP 151/79
[2017-11-03] MEDS: DUONEB 0.5 MG-3 MG/3 ML SOLN IH SCH ×2 (02:27→09:06)
[2017-11-03] MEDS: ULTRAM PO PRN (03:59)
[2017-11-03 04:56] VITALS: BP 161/88
[2017-11-03] MEDS: HNS 1000ML/KCL 20MEQ 1,000 ML IV SCH (05:43)
[2017-11-03 07:41] VITALS: BP 137/81
[2017-11-03] MEDS ORDERED: PROTONIX PO SCH (09:00)
[2017-11-03] MEDS ORDERED: ZESTRIL PO SCH (09:00)
[2017-11-03] MEDS ORDERED: ASPIRIN PO SCH (09:00)
[2017-11-03] MEDS ORDERED: CEPHULAC PO SCH (09:00)
[2017-11-03] MEDS ORDERED: CELEXA PO SCH (09:00)
[2017-11-03] MEDS ORDERED: PROCARDIA PO SCH (09:00)
[2017-11-03] MEDS ORDERED: FERROUS SULFATE PO SCH (09:00)
[2017-11-03] MEDS ORDERED: FLONASE NS SCH (09:00)
[2017-11-03] MEDS: PREDNISONE PO SCH (10:23)
[2017-11-03] MEDS: ZOFRAN IV PRN (10:23)
--- NOTE | 2017-11-03 13:00 | NUR ---
DISCHARGE PLAN CM/SS VISITED WITH PT AND REGARDING PTS DISCHARGE PLAN AND NEED. PT LIVES @ HOME WITH HER . SHE STATED SHE HAS A WALKER WITH WHEELS IN PLACE THAT SHE USES FOR AMBULATION ASSISTANCE AND SHE DENIES NEEDING FURTHER DME NEEDS @ THIS TIME. PT ALSO CURRENTLY HAS HOME O2 IN PLACE THAT SHE USES CONTINUES. SHE HAS A HOUSE KEEPER THAT COMES WEEKLY TO ASSIST WITH HOUSEHOLD DUTIES. EDUCATED GIVEN TO PT AND REGARDING HH SERVICES AND BENEFITS DUE TO HOSPITAL ADMISSION WITH VERBAL REFUSAL @ THIS TIME. PT STATED IF AND WHEN THE TIME CAME FOR HH, SHE WOULD ARRANGE IT HERSELF. PTS STATED HE IS AN ACTIVE PART OF [facility]. CONTACT INFORMATION PROVIDED. PT SAFETY HANDOUT ADDRESSED, NO QUESTIONS ASKED AND VOICED UNDERSTANDING. CURRENT GOAL FOR PT IS TO DISCHARGE BACK HOME WITH TO ROUTINE SELF CARE UPON DISCHARGE. NO FURTHER CM OR DISCHARGE NEEDS KNOWN @ THIS TIME.
[2017-11-03] MEDS: LOVENOX SQ SCH (13:32)
[2017-11-03] MEDS ORDERED: TUMS ONE (13:34)
[2017-11-03 13:40] VITALS: BP 142/69
[2017-11-03 15:14] VITALS: BP 142/69
--- NOTE | 2017-11-03 20:48 | DSH ---
DATE OF DISCHARGE: 11/03/2017 ADMITTING DIAGNOSES: COPD exacerbation with hypoxia and shortness of breath with atelectasis with underlying rheumatoid arthritis. DISCHARGE DIAGNOSES: COPD with rheumatoid arthritis. HOSPITAL COURSE: The patient is a 72-year-old female who came in with shortness of breath and lots of coughing with some diaphragmatic irritation. Chest x-ray did show some atelectasis. I started her on incentive spirometry and started her on DuoNeb treatments. She rapidly improved overnight and her breathing is a lot better. O2 sats are better too. She is on home oxygen already. There was a concern about a questionable gallbladder issues and ultrasound of the right upper quadrant did show a probable biliary sludge; however, she was not having any Phillip sign or pain in the right upper quadrant. She has been doing better overnight. At this time, she feels good enough to go home. I am going to discharge her home on her home medications, home diet and activity level and I have asked her to follow up with her PCP, Dr. Worley next week to reassess her. I have asked to use her incentive spirometry frequently at home while she is using her breathing treatments. Amparo Gamboa MD DR: COLETTE/lucy JOB# [id number]
== END 2017-11-03 14:56 | disposition home or self-care (01) ==
LOC: ER 07:41 → EDBD 07:41 → MS 09:36
PROVIDERS: ADMIT Pediatrics; ATTEND Pediatrics
DX: J44.1 Chronic obstructive pulmonary disease with (acute) exacerbation (principal); R09.02 Hypoxemia; R10.9 Unspecified abdominal pain; M06.9 Rheumatoid arthritis, unspecified; I25.10 Atherosclerotic heart disease of native coronary artery without angina pectoris; I10 Essential (primary) hypertension; F32.9 Major depressive disorder, single episode, unspecified; E78.5 Hyperlipidemia, unspecified; M85.80 Other specified disorders of bone density and structure, unspecified site; K80.50 Calculus of bile duct without cholangitis or cholecystitis without obstruction; J98.11 Atelectasis; F17.210 Nicotine dependence, cigarettes, uncomplicated; K59.00 Constipation, unspecified; Z90.710 Acquired absence of both cervix and uterus; Z98.890 Other specified postprocedural states
CPT/HCPCS: 36415; 36600; 71046; 76705; 80053; 82150; 82550; 82553; 83605; 83690; 83880; 84484; 85025; 85379; 85610; 85730; 87040 ×2; 93005; 94640 ×5; 96361 ×2; 96372 ×2; 96374; 96375; 96376; 99285; G0378 ×29; J1100; J1650 ×2; J1885; J2405 ×2; J3010; J7030 ×3; J7512 ×2; J7620 ×5; Q0162

== ENCOUNTER 2017-12-17 05:00 | Emergency (ER) | payer MEDICARE, OTHER ==
[~2017-12-17] VITALS: Ht 167.6 cm; Wt 79.4 kg
[~2017-12-17 05:00] MED LIST changes: +ALBU2.5V12 NEB; +CITA40TA5 PO; +DOCU-123 PO; +FLUT1DIS3 IH; +GABA100C7 PO; +PANT40TA3 PO; +PRED2.5T PO; +SENN-82 PO
[2017-12-17] MEDS ORDERED: LIDOCAINE VISCOUS ONE (05:15)
[2017-12-17] MEDS ORDERED: LIDOCAINE VISCOUS MM STA (05:23)
[2017-12-17] MEDS ORDERED: BENADRYL PO STA (05:23)
[2017-12-17] MEDS ORDERED: BENADRYL PO ONE (05:28)
--- NOTE | 2017-12-17 05:40 | ER.PDOC ---
General Chief Complaint: General Complaint Stated Complaint: MOUTH PAIN Time seen by MD: 05:14 Source: patient Exam Limitations: no limitations History of Present Illness Initial Comments pt has developed pain about the frenulum when she was given Dialaudid without benadryl in [place] ED 2 days ago. She began rubbing her upper lip lip which began to start hurting. Now it is very painful to elio the upper lip. She denies, feverand chills, has not been able to wear her upper dentures. Occurred: other (2 days ago) Where: home Severity: severe Allergies: Coded Allergies: Sulfa (Sulfonamide Antibiotics) (Verified Allergy, Intermediate, Anaphylaxis Shock, 08/24/15) codeine (Verified Allergy, Intermediate, Rash, 08/24/15) morphine (Verified Allergy, Intermediate, Rash, 08/24/15) EXTREME VOMITING Home Meds Reported Medications Gabapentin (GABAPENTIN) 100 Mg Capsule, 1 CAP PO DAILY24, #90 CAP 2 Refills 11/02/17 Albuterol Sulfate (ALBUTEROL SULFATE) 2.5 Mg/0.5 Ml Vial.neb, 1 VIAL NEB BID, # 120 VIAL 5 Refills 11/02/17 Fluticasone/Salmeterol (ADVAIR 250-50 DISKUS) 1 Each Disk.w.dev, 1 PUFF IH BID, #3 INHALER 3 Refills 11/02/17 Docusate Sodium (COLACE) 100 Mg Capsule, 1 CAP PO BID Y for CONSTIPATION, #30 CAP 11/02/17 Sennosides (SENNA) 8.6 Mg Tablet, 8.6 MG PO BID, TABLET 11/02/17 Citalopram Hydrobromide (CITALOPRAM HBR) 40 Mg Tablet, 1 TAB PO DAILY, #90 TAB 1 Refill 11/02/17 Pantoprazole Sodium (PROTONIX) 40 Mg Tablet.dr, 1 TAB PO DAILY, #30 TAB 5 Refills 11/02/17 Prednisone (PREDNISONE) 2.5 Mg Tablet, 3 TAB PO DAILY, #30 TAB 3 Refills 11/02/17 Ferrous Sulfate (FERROUS SULFATE) 325 Mg Tablet.dr, 325 MG PO DAILY 08/24/15 Lactulose (LACTULOSE) 10 Gm/15 Ml Solution, 10 GM PO DAILY 08/24/15 Fluticasone Propionate (Flonase Allergy Relief) 9.9 Ml [place].susp, 9.9 ML NS DAILY 08/24/15 Nifedipine (PROCARDIA XL) 60 Mg Tab.er.24, 1 TAB PO DAILY, #90 TAB 3 Refills 08/24/15 Tramadol Hcl (TRAMADOL HCL) 50 Mg Tablet, 50 MG PO Q6HR Y for PAIN, TABLET 03/01/15 Cyclobenzaprine Hcl (FLEXERIL) 10 Mg Tablet, 5 MG PO TID Y for PAIN, TABLET 03/01/15 Metoprolol Succinate (METOPROLOL SUCCINATE) 50 Mg Tab.er.24h, 50 MG PO HS 03/01/15 Tocilizumab (ACTEMRA) 80 Mg/4 Ml Vial, 80 MG IV EVERY 4 WEEKS, VIAL 12/30/13 Simvastatin (SIMVASTATIN) 80 Mg Tablet, 80 MG PO HS, TABLET 12/30/13 Lisinopril (LISINOPRIL) 40 Mg Tablet, 40 MG PO DAILY, TABLET 12/30/13 Aspirin (ASPIRIN) 81 Mg Tab.chew, 81 MG PO DAILY, TAB.CHEW 12/30/13 Omeprazole (OMEPRAZOLE) 20 Mg Tablet.dr, 20 MG PO DAILY 12/30/13 Past Medical History Medical History: cardiac problems, COPD, heart attack, hypertension, thyroid disease, other (rheumatoid arthritis) Surgical History: cardiac cath, hysterectomy, stent, tonsillectomy, tubal LMP (females 10-50): hysterectomy Social History Smoking: cigarettes Alcohol Use: none Drug Use: none Review of Systems Constitutional: no symptoms reported Eyes: no symptoms reported Ears: no symptoms reported Nose: no symptoms reported Mouth: see HPI, swelling, other (tender upper gum and upper lip mucosa) Throat: no symptoms reported Respiratory: no symptoms reported Cardiovascular: no symptoms reported Musculoskeletal: no symptoms reported Physical Exam General Appearance: severe distress Head: non-tender, no swelling, no obvious trauma Neck: non-tender, painless ROM Eyes: lids nml, conjunctivae nml, PERRL, EOMI ENT: other (upper gums erythematous and tender) Neuro/Psych: oriented x 3, sensation nml, motor nml, CN's nml as tested, mood/ affect nml Respiratory: chest non-tender CVS: heart sounds nml Results/Orders Results/Orders Laboratory Tests Test 12/17/17 05:50 White Blood Count 11.0 10^3/uL (4.5-11.0) Red Blood Count 5.92 10^6/uL (4.00-5.20) Hemoglobin 14.7 g/dL (12.0-15.0) Hematocrit 45.4 % (36.0-46.0) Mean Corpuscular Volume 76.7 fL (78-100) Mean Corpuscular Hemoglobin 24.8 pg (26-34) Mean Corpuscular Hemoglobin Concent 32.4 g/dL (33-37) Red Cell Distribution Width 17.2 % (11.5-14.5) Platelet Count 290 10^3/uL (150-400) Mean Platelet Volume 10.3 fL (7.8-11.0) Neutrophils (%) (Auto) 71.3 % (41.0-85.0) Lymphocytes (%) (Auto) 12.5 % (24.0-44.0) Monocytes (%) (Auto) 11.7 % (5.0-12.0) Neutrophils # (Auto) 7.9 10^3/uL (1.8-7.7) Lymphocytes # (Auto) 1.4 10^3/uL (1.0-4.8) Monocytes # (Auto) 1.3 10^3/uL (0.3-0.8) Absolute Immature Granulocyte (auto 0.02 10^3 u/L (0-2) Eosinophils % 3.7 % (0.0-5.0) Basophils % 0.6 % (0.0-0.2) Basophils # 0.1 10^3/uL (0.0-0.1) Eosinophil Count 0.4 10^3/uL (0.0-0.2) Sodium Level 131 mmol/L (132-145) Potassium Level 4.4 mmol/L (3.6-5.2) Chloride Level 94.0 mmol/L (96-109) Carbon Dioxide Level 25.0 mmol/L (20.0-32) Anion Gap 16.4 Blood Urea Nitrogen 15 mg/dL (7-18) Creatinine 1.02 mg/dL (0.59-1.40) Estimated GFR () 64.6 (>/=60) BUN/Creatinine Ratio 14.0 Glucose Level 132 mg/dL (70-110) Calcium Level 9.0 mg/dL (8.4-10.5) Total Bilirubin 0.4 mg/dL (0.2-1.0) Aspartate Amino Transf (AST/SGOT) 21 U/L (0-35) Alanine Aminotransferase (ALT/SGPT) 33 U/L (12-78) Alkaline Phosphatase 94 U/L (50-136) Total Protein 7.2 g/dL (6.4-8.2) Albumin 3.8 g/dL (3.4-5.0) Globulin 3.4 Percent Immature Gran (Cell Imm) 0.20 % (0.00-0.50) Administered Medications Medications (Trade) Dose Ordered Sig/Tamiko Route PRN Reason Start Time Stop Time Status Last Admin Dose Admin Diphenhydramine HCl (Benadryl) 25 mg STAT STAT PO 12/17/17 05:23 12/17/17 05:28 DC 12/17/17 05:30 Lidocaine HCl (Lidocaine Viscous) 15 ml STAT STAT MM 12/17/17 05:23 12/17/17 05:28 DC 12/17/17 05:28 EKG/XRAY/CT/US CT Comments: no osteomyelitis, sinusitis right maxillary sinus Departure Time of Disposition: 06:48 Disposition: 01 HOME, SELF-CARE Impression: Primary Impression: Contact gingivostomatitis Condition: Improved Referrals: FERMIN DASILVA MD (PCP) PRIMARY CARE PROVIDER Additional Instructions: use magic mouthwash, follow up with PCP if fails to improve in 3 days Duration or Time Spent with Pa: JANIE CARR MD Dec 17, 2017 05:40
--- NOTE | 2017-12-17 05:58 | DIREP ---
PROCEDURE:CT MAXILLOFACIAL W/O CONTRAST COMPARISON:None. INDICATIONS:pain in maxilla, r/o osteomyelitis TECHNIQUE:Axial CT images were created without intravenous contrast. Sagittal and coronal reformatted images are provided. FINDINGS: ORBITS:The globe is intact. No extraocular muscle entrapment is identified. No orbital wall fracture is identified. FACIAL BONES:No fracture. NASAL BONES :No fracture MANDIBLE:No fracture. No lytic process to indicate osteomyelitis is identified SINUSES:Mucosal thickening right maxillary sinus. Surgical changes left mastoid SOFT TISSUES:No significant hematoma, or soft tissue swelling. CONCLUSION:No CT evidence of osteomyelitis is identified. Sinus disease as above. Dictated by: Greg Reyes MD on 12/17/2017 at 05:54 AM
[2017-12-17 06:03] LABS: BASOPHIL # 0.1 10^3/uL (0.0-0.1); BASOPHIL % 0.6 % (0.0-0.2); EOSINOPHIL # 0.4 10^3/uL (0.0-0.2); EOSINOPHIL % 3.7 % (0.0-5.0); HEMOGLOBIN 14.7 g/dL (12.0-15.0); LYMPHOCYTES # 1.4 10^3/uL (1.0-4.8); LYMPHOCYTES % 12.5 % (24.0-44.0); MEAN CELL HGB 24.8 pg (26-34); MEAN CELL HGB CONCENTRATION 32.4 g/dL (33-37); MEAN CORP VOLUME 76.7 fL (78-100); MEAN PLATELET VOLUME 10.3 fL (7.8-11.0); MONOCYTES # 1.3 10^3/uL (0.3-0.8); MONOCYTES % 11.7 % (5.0-12.0); NEUTROPHIL # 7.9 10^3/uL (1.8-7.7); NEUTROPHILS % 71.3 % (41.0-85.0); RED CELL DISTRIBUTION WIDTH 17.2 % (11.5-14.5)
[2017-12-17 06:06] VITALS: BP 120/69
[2017-12-17 06:48] VITALS: BP 120/69
[2017-12-18] MEDS ORDERED: UMEC1DIS IH (05:11)
== END 2017-12-17 06:55 | disposition home or self-care (01) ==
LOC: ER 05:00
DX: K05.10 Chronic gingivitis, plaque induced (principal); E07.9 Disorder of thyroid, unspecified; I10 Essential (primary) hypertension; I25.2 Old myocardial infarction; J44.9 Chronic obstructive pulmonary disease, unspecified; M06.9 Rheumatoid arthritis, unspecified; Z79.82 Long term (current) use of aspirin; Z88.2 Allergy status to sulfonamides; Z88.5 Allergy status to narcotic agent; Z90.710 Acquired absence of both cervix and uterus; Z79.899 Other long term (current) drug therapy
CPT/HCPCS: 36415; 70486; 80053; 85025; 99285; J3490; Q0163

== ENCOUNTER 2017-12-17 17:25 | Emergency (ER) | payer MEDICARE, OTHER ==
[~2017-12-17] VITALS: Ht 162.6 cm; Wt 81.6 kg
[2017-12-17 17:54] VITALS: BP 161/94
[2017-12-17] MEDS ORDERED: AMOXIL PO ONE (18:46)
--- NOTE | 2017-12-17 18:46 | ER.PDOC ---
General Chief Complaint: Toothache Stated Complaint: MOUTH PAIN Time seen by MD: 18:37 Source: patient Exam Limitations: no limitations History of Present Illness Initial Comments Mouth pain for 2 days Timing/Duration: gradual Severity: moderate Prior symptoms/Treatment: Similar symptoms previous (today), Recenly Seen, Treated by Doctor Allergies: Coded Allergies: Sulfa (Sulfonamide Antibiotics) (Verified Allergy, Intermediate, Anaphylaxis Shock, 08/24/15) codeine (Verified Allergy, Intermediate, Rash, 08/24/15) morphine (Verified Allergy, Intermediate, Rash, 08/24/15) EXTREME VOMITING Home Meds Reported Medications Gabapentin (GABAPENTIN) 100 Mg Capsule, 1 CAP PO DAILY24, #90 CAP 2 Refills 11/02/17 Albuterol Sulfate (ALBUTEROL SULFATE) 2.5 Mg/0.5 Ml Vial.neb, 1 VIAL NEB BID, # 120 VIAL 5 Refills 11/02/17 Fluticasone/Salmeterol (ADVAIR 250-50 DISKUS) 1 Each Disk.w.dev, 1 PUFF IH BID, #3 INHALER 3 Refills 11/02/17 Docusate Sodium (COLACE) 100 Mg Capsule, 1 CAP PO BID Y for CONSTIPATION, #30 CAP 11/02/17 Sennosides (SENNA) 8.6 Mg Tablet, 8.6 MG PO BID, TABLET 11/02/17 Citalopram Hydrobromide (CITALOPRAM HBR) 40 Mg Tablet, 1 TAB PO DAILY, #90 TAB 1 Refill 11/02/17 Pantoprazole Sodium (PROTONIX) 40 Mg Tablet.dr, 1 TAB PO DAILY, #30 TAB 5 Refills 11/02/17 Prednisone (PREDNISONE) 2.5 Mg Tablet, 3 TAB PO DAILY, #30 TAB 3 Refills 11/02/17 Ferrous Sulfate (FERROUS SULFATE) 325 Mg Tablet.dr, 325 MG PO DAILY 08/24/15 Lactulose (LACTULOSE) 10 Gm/15 Ml Solution, 10 GM PO DAILY 08/24/15 Fluticasone Propionate (Flonase Allergy Relief) 9.9 Ml [place].susp, 9.9 ML NS DAILY 08/24/15 Nifedipine (PROCARDIA XL) 60 Mg Tab.er.24, 1 TAB PO DAILY, #90 TAB 3 Refills 08/24/15 Tramadol Hcl (TRAMADOL HCL) 50 Mg Tablet, 50 MG PO Q6HR Y for PAIN, TABLET 03/01/15 Cyclobenzaprine Hcl (FLEXERIL) 10 Mg Tablet, 5 MG PO TID Y for PAIN, TABLET 03/01/15 Metoprolol Succinate (METOPROLOL SUCCINATE) 50 Mg Tab.er.24h, 50 MG PO HS 03/01/15 Tocilizumab (ACTEMRA) 80 Mg/4 Ml Vial, 80 MG IV EVERY 4 WEEKS, VIAL 12/30/13 Simvastatin (SIMVASTATIN) 80 Mg Tablet, 80 MG PO HS, TABLET 12/30/13 Lisinopril (LISINOPRIL) 40 Mg Tablet, 40 MG PO DAILY, TABLET 12/30/13 Aspirin (ASPIRIN) 81 Mg Tab.chew, 81 MG PO DAILY, TAB.CHEW 12/30/13 Omeprazole (OMEPRAZOLE) 20 Mg Tablet.dr, 20 MG PO DAILY 12/30/13 Past Medical History Medical History: cardiac problems, COPD, GERD, hypertension Surgical History: hysterectomy LMP (females 10-50): hysterectomy Social History Smoking: cigarettes, greater than 1 pack/day Alcohol Use: none Drug Use: none Constitutional: no symptoms reported Nose: no symptoms reported Mouth: see HPI Throat: no symptoms reported Respiratory: no symptoms reported Cardiovascular: no symptoms reported Gastrointestinal: no symptoms reported All Other Systems: Reviewed and Negative Physical Exam General Appearance: alert, no distress Head/Neck: head nml inspection, neck nml inspection, trachea midline, no lymphadenopathy, thyroid nml Mouth: gum swelling (right upper frontal gum) Respiratory: no resp. distress, lungs clear CVS: reg. rate & rhythm, heart sounds nml Abdomen: non-tender, no organomegaly Extremities: non-tender, ROM nml Skin Exam: Normal Color, Warm/Dry NEURO/PSYCH: oriented X3, mood/effect nml Departure Time of Disposition: 18:39 Disposition: 01 HOME, SELF-CARE Impression: Primary Impression: Gingivitis Additional Impression: Acute pain Condition: Stable Referrals: FERMIN DASILVA MD (PCP) PRIMARY CARE PROVIDER Additional Instructions: Amoxil Chlorhexidine Warm salt water rinses 4-6 times/day F/U with your Dentist in 1-2 days Duration or Time Spent with Pa: 20 mins JOSE RAFAEL BEAUCHAMP MD Dec 17, 2017 18:46
[2017-12-17] MEDS ORDERED: TORADOL ONE (18:47)
[2017-12-17] MEDS ORDERED: AMOXIL PO STA (18:47)
[2017-12-17] MEDS ORDERED: TORADOL IM STA (18:47)
[2017-12-17] MEDS ORDERED: LIDOCAINE VISCOUS MM STA (18:47)
[2017-12-17] MEDS ORDERED: LIDOCAINE VISCOUS ONE (18:54)
[2017-12-17 19:18] VITALS: BP 161/94
[2017-12-18] MEDS ORDERED: UMEC1DIS IH (05:11)
== END 2017-12-17 19:13 | disposition home or self-care (01) ==
LOC: ER 17:25
DX: K05.10 Chronic gingivitis, plaque induced (principal); J44.9 Chronic obstructive pulmonary disease, unspecified; K21.9 Gastro-esophageal reflux disease without esophagitis; I10 Essential (primary) hypertension; F17.210 Nicotine dependence, cigarettes, uncomplicated; Z88.2 Allergy status to sulfonamides; Z88.5 Allergy status to narcotic agent; Z90.710 Acquired absence of both cervix and uterus; Z79.82 Long term (current) use of aspirin
CPT/HCPCS: 96372; 99283; J1885; J3490

== ENCOUNTER 2017-12-18 01:51 | Inpatient (IN) | payer MEDICARE, OTHER ==
[~2017-12-18] VITALS: Ht 170.2 cm; Wt 82.6 kg
[2017-12-18] VITALS (7 sets, daily range): BP systolic 85–150; BP diastolic 52–76
[2017-12-18] MEDS ORDERED: NS 1000ML 1,000 ML ONE ×3 (02:01→04:29)
[2017-12-18] MEDS ORDERED: NS 1000ML 1,000 ML IV STA (02:05)
--- NOTE | 2017-12-18 02:10 | ER.PDOC ---
General Chief Complaint: Altered Mental Status Stated Complaint: ALOC Time seen by MD: 02:08 Source: patient Exam Limitations: no limitations History of Present Illness Initial Comments Passed out and fell going to the bathroom Occurred: just prior to arrival Severity: moderate Injuries/Pain Location: no injury Context: Lightheaded Loss of Consciousness: No Loss of Consciousness Associated Symptoms: other (weakness) Allergies: Coded Allergies: Sulfa (Sulfonamide Antibiotics) (Verified Allergy, Intermediate, Anaphylaxis Shock, 08/24/15) codeine (Verified Allergy, Intermediate, Rash, 08/24/15) morphine (Verified Allergy, Intermediate, Rash, 08/24/15) EXTREME VOMITING MEDS Reported Medications Gabapentin (GABAPENTIN) 100 Mg Capsule, 1 CAP PO DAILY24, #90 CAP 2 Refills 11/02/17 Albuterol Sulfate (ALBUTEROL SULFATE) 2.5 Mg/0.5 Ml Vial.neb, 1 VIAL NEB BID, # 120 VIAL 5 Refills 11/02/17 Fluticasone/Salmeterol (ADVAIR 250-50 DISKUS) 1 Each Disk.w.dev, 1 PUFF IH BID, #3 INHALER 3 Refills 11/02/17 Docusate Sodium (COLACE) 100 Mg Capsule, 1 CAP PO BID Y for CONSTIPATION, #30 CAP 11/02/17 Sennosides (SENNA) 8.6 Mg Tablet, 8.6 MG PO BID, TABLET 11/02/17 Citalopram Hydrobromide (CITALOPRAM HBR) 40 Mg Tablet, 1 TAB PO DAILY, #90 TAB 1 Refill 11/02/17 Pantoprazole Sodium (PROTONIX) 40 Mg Tablet.dr, 1 TAB PO DAILY, #30 TAB 5 Refills 11/02/17 Prednisone (PREDNISONE) 2.5 Mg Tablet, 3 TAB PO DAILY, #30 TAB 3 Refills 11/02/17 Ferrous Sulfate (FERROUS SULFATE) 325 Mg Tablet.dr, 325 MG PO DAILY 08/24/15 Lactulose (LACTULOSE) 10 Gm/15 Ml Solution, 10 GM PO DAILY 08/24/15 Fluticasone Propionate (Flonase Allergy Relief) 9.9 Ml [place].susp, 9.9 ML NS DAILY 08/24/15 Nifedipine (PROCARDIA XL) 60 Mg Tab.er.24, 1 TAB PO DAILY, #90 TAB 3 Refills 08/24/15 Tramadol Hcl (TRAMADOL HCL) 50 Mg Tablet, 50 MG PO Q6HR Y for PAIN, TABLET 03/01/15 Cyclobenzaprine Hcl (FLEXERIL) 10 Mg Tablet, 5 MG PO TID Y for PAIN, TABLET 03/01/15 Metoprolol Succinate (METOPROLOL SUCCINATE) 50 Mg Tab.er.24h, 50 MG PO HS 03/01/15 Tocilizumab (ACTEMRA) 80 Mg/4 Ml Vial, 80 MG IV EVERY 4 WEEKS, VIAL 12/30/13 Simvastatin (SIMVASTATIN) 80 Mg Tablet, 80 MG PO HS, TABLET 12/30/13 Lisinopril (LISINOPRIL) 40 Mg Tablet, 40 MG PO DAILY, TABLET 12/30/13 Aspirin (ASPIRIN) 81 Mg Tab.chew, 81 MG PO DAILY, TAB.CHEW 12/30/13 Omeprazole (OMEPRAZOLE) 20 Mg Tablet.dr, 20 MG PO DAILY 12/30/13 Past Medical History Medical History: CVA/TIA/stroke, cardiac problems, COPD, heart attack, hypertension Surgical History: cardiac cath, , hysterectomy, stent, tonsillectomy, tubal LMP (females 10-50): hysterectomy Social History Smoking: less than 1 pack/day Alcohol Use: none Drug Use: none Review of Systems Constitutional: no symptoms reported Ears, Nose, Mouth, Throat: no symptoms reported Respiratory: no symptoms reported Cardiovascular: no symptoms reported Gastrointestinal: no symptoms reported All Other Systems: Reviewed and Negative Physical Exam General Appearance: No Apparent Distress, WD/WN Head: No Evidence of Injury Neck: Non-Tender, Normal Alignment, Nexus criteria neg, Normal Inspection Cardiovascular/Respiratory: Regular Rate, Rhythm, No M/R/G, Normal Peripheral Pulses, No JVD, Normal Breath Sounds, No Respiratory Distress Gastrointestinal: Normal Bowel Sounds, No Organomegaly, No Pulsatile Mass, Non Tender, Soft Back: Normal Inspection, No CVA Tenderness, No Vertebral Tenderness Extremities: No Evidence of Injury, Normal Range of Motion, Non-Tender, No Pedal Edema Neurologic/Psychiatric: manager recovery II-XII NML as Tested, No Motor/Sensory Deficits, Alert, Normal Mood/Affect, Oriented x 3 Preston Coma Score Best Eye Response: (4) Open Spontaneously Best Verbal Response: (5) Oriented Best Motor Response: (6) Obeys Commands Results/Orders Results/Orders Laboratory Tests Test 12/18/17 02:10 12/18/17 02:45 12/18/17 03:49 12/18/17 04:30 White Blood Count 14.9 10^3/uL (4.5-11.0) Red Blood Count 5.64 10^6/uL (4.00-5.20) Hemoglobin 14.0 g/dL (12.0-15.0) Hematocrit 44.0 % (36.0-46.0) Mean Corpuscular Volume 78.0 fL (78-100) Mean Corpuscular Hemoglobin 24.8 pg (26-34) Mean Corpuscular Hemoglobin Concent 31.8 g/dL (33-37) Red Cell Distribution Width 17.4 % (11.5-14.5) Platelet Count 199 10^3/uL (150-400) Mean Platelet Volume 10.8 fL (7.8-11.0) Neutrophils (%) (Auto) 77.4 % (41.0-85.0) Lymphocytes (%) (Auto) 7.0 % (24.0-44.0) Monocytes (%) (Auto) 11.7 % (5.0-12.0) Neutrophils # (Auto) 11.6 10^3/uL (1.8-7.7) Lymphocytes # (Auto) 1.0 10^3/uL (1.0-4.8) Monocytes # (Auto) 1.7 10^3/uL (0.3-0.8) Absolute Immature Granulocyte (auto 0.07 10^3 u/L (0-2) Eosinophils % 3.1 % (0.0-5.0) Basophils % 0.3 % (0.0-0.2) Basophils # 0.0 10^3/uL (0.0-0.1) Eosinophil Count 0.5 10^3/uL (0.0-0.2) Prothrombin Time 10.6 SEC (9.8-11.9) Prothrombin Time INR (Non-Therap) 1.1 Activated Partial Thromboplast Time 21.2 SEC (24.67-30.72) Sodium Level 133 mmol/L (132-145) Potassium Level 4.0 mmol/L (3.6-5.2) Chloride Level 97.0 mmol/L (96-109) Carbon Dioxide Level 25.6 mmol/L (20.0-32) Glucose Level 117 mg/dL (70-110) Blood Urea Nitrogen 22 mg/dL (7-18) Creatinine 1.98 mg/dL (0.59-1.40) Calcium Level 9.1 mg/dL (8.4-10.5) Anion Gap 14.4 Estimated GFR () 30.1 (>/=60) BUN/Creatinine Ratio 11.0 Percent Immature Gran (Cell Imm) 0.50 % (0.00-0.50) Differential Total Cells Counted 100 #CELLS Segmented Neutrophils 81 % (31-76) Lymphocytes 4 % (25-36) Atypical Lymphocytes 12 % Urine Collection Type CCMS Urine Color YELLOW (YELLOW) Urine Appearance HAZY (CLEAR) Urine Bilirubin NEGATIVE MG/DL (NEGATIVE) Urine Ketones NEGATIVE (NEGATIVE) Urine Specific [place] 1.020 (1.005-1.035) Urine pH 5 (5.0-6.0) Urine Protein 100 mg/dL (NEGATIVE) Urine Urobilinogen 1.0 (NEGATIVE) Urine Nitrate NEGATIVE (NEGATIVE) Urine Leukocyte Esterase 500/uL 2+ (NEGATIVE) Urine Blood 25 1+ (NEGATIVE) Urine RBC NONE SEEN RBC/HPF (NONE Urine WBC 10-25 WBC/HPF (0-2) Urine Squamous Epithelial Cells FEW #/HPF (FEW) Urine Renal Epithelial Cells FEW #/HPF (NONE SEEN) Urine Amorphous Sediment MODERATE (NONE SEEN) Urine Bacteria MODERATE (NONE SEEN) Urine Other MUCUS 2+ #/HPF Urine Glucose NORMAL (NEGATIVE) Blood Gas Sample Site RT BRACIAL ARTERY Blood Gas pH 7.304 (7.350-7.450) Blood Gas PCO2 41.8 mmHg (35.0-45.0) Blood Gas PO2 66.5 mmHg (75.0-100.0) Blood Gas HCO3 20.3 mmol/L (22.0-26.0) Blood Gas Base Excess -5.8 mmol/L (-2.0-2.0) Ned Test N/A Arterial Blood Oxygen Saturation 90.7 % (95-) Deoxyhemoglobin 9.0 % (0.2-0.6) Carboxyhemoglobin 2.9 % (0.5-1.5) Methemoglobin 0.5 % (0.2-0.6) Total Hemoglobin 13.6 % (13.5-17.5) Total Oxygen Concentration 16.8 % (13.5-17.5) Lactic Acid (Blood Gas) 1.0 MMOL/L (0.5-1.0) Blood Gas Temperature 37.0 FiO2 0.28 % (20-101) Bicarbonate 21.6 mmol/L (23-27) Administered Medications Medications (Trade) Dose Ordered Sig/Tamiko Route PRN Reason Start Time Stop Time Status Last Admin Dose Admin Sodium Chloride 1,000 ml @ 1,200 mls/hr Q50M STAT IV 12/18/17 02:05 12/18/17 02:54 DC 12/18/17 02:08 EKG/XRAY/CT/US EKG: NSR XRAY: chest (No active disease) CT Comments: Nothing acute Departure Time of Disposition: 04:55 Disposition: 01 HOME, SELF-CARE Impression: Primary Impression: Syncope and collapse Additional Impressions: Dehydration Nausea & vomiting Qualified Codes: R11.2 - Nausea with vomiting, unspecified FELIPE (acute kidney injury) UTI (urinary tract infection) Qualified Codes: N39.0 - Urinary tract infection, site not specified; R31.9 - Hematuria, unspecified Condition: Stable Referrals: FERMIN DASILVA MD (PCP) PRIMARY CARE PROVIDER Comments Admitted to Dr. Almaraz Duration or Time Spent with Pa: 90 mins JOSE RAFAEL BEAUCHAMP MD Dec 18, 2017 02:10
--- NOTE | 2017-12-18 02:15 | NUR ---
ARRIVAL PT ARRIVED VIA EMS TO ER 1 WITH C/O OF ALOC. PT RESPONDS TO VOICE, RESPONDS APPROPRIATELY, AND IS AOX3. PT NOT IN DISTRESS AT THIS TIME. EDP NOTIFIED OF ARRIVAL.
--- NOTE | 2017-12-18 02:15 | PCM.EKG ---
[facility] Test Date: 2017-12-18 Test Time: 02:16:16 Pat Name: ALE JOAQUIN Department: Room: 314 Gender: F Tobacco Packer: DEBBIE : 1945 Requested By: JOSE RAFAEL BEAUCHAMP Order Number: [id number] Reading MD: Jose Rafael BEAUCHAPM Measurements Intervals [place] Rate: 79 P: 39 [place]: 136 QRS: -59 QRSD: 74 T: 55 QT: 372 QTc: 426 Interpretive Statements Normal sinus rhythm Left anterior fascicular block Abnormal ECG Compared to ECG 11/02/2017 07:48:25 Left anterior fascicular block now present Left-axis deviation no longer present Electronically Signed On 12-18-2017 5:48:30 CDT by Jose Rafael BEAUCHAMP Please click the below link to view image of tracing.
--- NOTE | 2017-12-18 02:17 | NUR ---
ALIE ANTHONY IN ROOM W/PORTABLE AT THIS TIME.
--- NOTE | 2017-12-18 02:25 | NUR ---
CT PT TO CT VIA WHEELCHAIR AT THIS TIME WITH RAD. ABDULLAHI
[2017-12-18 02:39] LABS: CALCIUM 9.1 mg/dL (8.4-10.5); CARBON DIOXIDE 25.6 mmol/L (20.0-32)
[2017-12-18 02:40] LABS: BASOPHIL % 0.3 % (0.0-0.2); EOSINOPHIL # 0.5 10^3/uL (0.0-0.2); EOSINOPHIL % 3.1 % (0.0-5.0); MEAN CELL HGB 24.8 pg (26-34); MEAN CELL HGB CONCENTRATION 31.8 g/dL (33-37); MEAN PLATELET VOLUME 10.8 fL (7.8-11.0); MONOCYTES # 1.7 10^3/uL (0.3-0.8); MONOCYTES % 11.7 % (5.0-12.0); NEUTROPHIL # 11.6 10^3/uL (1.8-7.7); NEUTROPHILS % 77.4 % (41.0-85.0); RED CELL DISTRIBUTION WIDTH 17.4 % (11.5-14.5); WHITE BLOOD CELL 14.9 10^3/uL (4.5-11.0)
--- NOTE | 2017-12-18 02:40 | NUR ---
CT PT BACK TO ROOM FROM CT AT THIS TIME. PT RECONNECTED TO MONITORS AND COVERED W/BLANKET.
--- NOTE | 2017-12-18 02:48 | DIREP ---
PROCEDURE:CT HEAD OR BRAIN W/O CONTRAST COMPARISON:[facility], CT, CT MAXILLOFACIAL W/O, 12/17/2017, 05:33 AM. INDICATIONS:Syncope TECHNIQUE:CT images were created without intravenous contrast. FINDINGS: VENTRICLES:The ventricles are normal in size and configuration. CEREBRUM:Normal cerebral morphology with appropriate otero white matter differentiation. CEREBELLUM:Negative. BRAINSTEM:Negative. BASAL CISTERNS:Negative. HEMORRHAGE:No MASS LESION:No ACUTE INFARCT:No SKULL:Normal. SINUSES:Mucosal thickening with small air-fluid level, right maxillary sinus OTHER:None CONCLUSION:No acute intracranial findings Dictated by: Greg Reyes MD on 12/18/2017 at 02:46 AM
--- NOTE | 2017-12-18 02:48 | DIREP ---
PROCEDURE:CHEST 1 VIEW COMPARISON:[facility], CR, XRAY CHEST 2 VWS, 11/02/2017, 08:39 AM. INDICATIONS:Syncope FINDINGS: LUNGS/PLEURA:No significant pulmonary parenchymal abnormalities. No effusions. VASCULATURE:Normal. Unremarkable pulmonary vasculature. CARDIAC:Normal. No cardiac silhouette abnormality or cardiomegaly. MEDIASTINUM:Normal. No visible mass or adenopathy. BONES:Degenerative changes, right shoulder, advanced OTHER:Negative. CONCLUSION:No acute disease. No significant change has occurred. Dictated by: Greg Reyes MD on 12/18/2017 at 02:47 AM
[2017-12-18 03:09] LABS: LYMPHOCYTE 4 % (25-36); SEGMENTED NEUTROPHILS 81 % (31-76)
--- NOTE | 2017-12-18 03:29 | NUR ---
NS SECOND LITER OF NS STARTED AT THIS TIME.
[2017-12-18 03:56] LABS: BILIRUBIN,URINE NEGATIVE (NEGATIVE)
[2017-12-18 03:57] LABS: APPEARANCE,URINE HAZY (CLEAR); UA COLOR YELLOW (YELLOW)
[2017-12-18] MEDS ORDERED: ROCEPHIN 1,000 MG in NS 100ML 100 ML IV STA (04:30)
--- NOTE | 2017-12-18 04:34 | NUR ---
NS THIRD LITER OF NS STARTED AT THIS TIME VIA VERBAL ORDERS FROM DR BEAUCHAMP.
[2017-12-18 04:46] LABS: ABG PCO2 41.8 mmHg (35.0-45.0); ABG PH 7.304 (7.350-7.450); BE(B) -5.8 mmol/L (-2.0-2.0); HCO3act 20.3 mmol/L (22.0-26.0); pO2 66.5 mmHg (75.0-100.0)
--- NOTE | 2017-12-18 04:58 | PRM.ACF1 ---
Date and Time Date and Time Time: 04:57 Admission Criteria Forms DEHYDRATION: OBSERVATION CARE USE THIS FORM ONLY WHEN INPATIENT ADMISSION CRITERIA ARE NOT MET. (Place X for any and all applicable criteria): Placement for observation care may be appropriate for a patient with ANY ONE of the following (1)(2)(3)(4)(5)(6): []I. Refractory vomiting (ie, precluding oral rehydration) []II. Electrolyte imbalance unable to be corrected in outpatient setting []III. Hemodynamic instability [x]IV. Failure to remain hydrated with outpatient therapy []V. A child whose situation includes ANY ONE of the following: []a) Clinical response to outpatient therapy uncertain []b) Outpatient supervision by parents or caregivers uncertain [].Other observation care needs (See General Criteria: Observation Care) The original [facility] content created by [facility] has been revised. The portions of the content which have been revised are identified through the use of italic text, and [facility] has neither reviewed nor approved the modified material. All other unmodified content is copyright [facility]. Please see references footnoted in the original [facility] [employer] edition 2016 JOSE RAFAEL BEAUCHAMP MD Dec 18, 2017 04:58
[2017-12-18] MEDS ORDERED: ZOFRAN IV PRN ×2 (05:00→13:00)
[2017-12-18] MEDS ORDERED: UMEC1DIS IH (05:11)
[2017-12-18] MEDS ORDERED: NS 100ML 100 ML IV ONE (05:17)
[2017-12-18] MEDS ORDERED: ROCEPHIN ONE (05:18)
--- NOTE | 2017-12-18 06:40 | NUR ---
REPORT RECEIVED REPORT, ASSUMED CARE FOR PATIENT AT THIS TIME.
--- NOTE | 2017-12-18 06:54 | NUR ---
REPORT TO ONESIMO PENNY
[2017-12-18] MEDS ORDERED: ULTRAM PO PRN (09:30)
[2017-12-18] MEDS ORDERED: COLACE PO PRN (09:30)
[2017-12-18] MEDS: NS 1000ML 1,000 ML IV SCH ×2 (09:43→20:32)
[2017-12-18] MEDS: SENOKOT PO SCH ×2 (09:45→20:33)
[2017-12-18] MEDS: NEURONTIN PO SCH (09:45)
[2017-12-18 10:00] LABS: BASOPHIL % 0.1 % (0.0-0.2); EOSINOPHIL # 0.2 10^3/uL (0.0-0.2); EOSINOPHIL % 0.9 % (0.0-5.0); LYMPHOCYTES # 0.4 10^3/uL (1.0-4.8); LYMPHOCYTES % 2.4 % (24.0-44.0); MEAN CELL HGB 24.7 pg (26-34); MEAN CELL HGB CONCENTRATION 31.1 g/dL (33-37); MEAN CORP VOLUME 79.5 fL (78-100); MEAN PLATELET VOLUME 10.2 fL (7.8-11.0); MONOCYTES # 1.9 10^3/uL (0.3-0.8); MONOCYTES % 11.1 % (5.0-12.0); NEUTROPHIL # 14.8 10^3/uL (1.8-7.7); NEUTROPHILS % 85.3 % (41.0-85.0); RED CELL DISTRIBUTION WIDTH 17.6 % (11.5-14.5); WHITE BLOOD CELL 17.4 10^3/uL (4.5-11.0)
[2017-12-18] MEDS ORDERED: NS IV SCH (10:30)
[2017-12-18] MEDS ORDERED: ROCEPHIN IV SCH (10:30)
[2017-12-18 10:40] LABS: ALANINE AMINOTRANSFERASE(ML) 26 U/L (12-78); ALKALINE PHOSPHATASE 75 U/L (50-136); ASPARTATE AMINO TRANSFERASE 25 U/L (0-35); CARBON DIOXIDE 22.7 mmol/L (20.0-32); GLUCOSE 127 mg/dL (70-110)
--- NOTE | 2017-12-18 10:45 | NUR ---
NAUSEA PATIENT REPORTS VOMITING AND NAUSEA AT THIS TIME. ZOFRAN 4MG GIVEN IV. WILL CONTINUE TO MONITOR. CALL LIGHT IN REACH, BED IS LOW AND LOCKED.
--- NOTE | 2017-12-18 11:10 | NUR ---
DISCHARGE PLAN CM VISITED WITH PT CONCERNING HER DISCHARGE PLAN AND NEED. PT LIVES @ HOME WITH HER . SHE STATED SHE HAS A WALKER WITH WHEELS IN PLACE THAT SHE USES FOR AMBULATION ASSISTANCE AND SHE DENIES NEEDING FURTHER DME NEED @ THIS TIME. SHE CURRENTLY HAS HOME O2 IN PLACE THAT SHE USES CONTINUES AND SHE HAS A HOUSE KEEPER THAT COMES WEEKLY TO ASSIST WITH HOUSEHOLD DUTIES. EDUCATED GIVEN TO PT REGARDING HH SERVICES AND BENEFITS DUE TO HOSPITAL ADMISSION WITH VERBAL REFUSAL @ THIS TIME. CM THEN ASKED IF THIS WORKER COULD HAVE A HH AGENCY FOLLOW UP WITH HER S/P DISCHARGE AND ONCE @ HOME FOR ANY DISCHARGE NEEDS. PT STATED SHE WOULD BE "OKAY WITH THAT". CHOICE LETTER PRESENTED, SIGNED AND PLACED INTO PTS CHART FOR NO PREFERENCE. [facility] WOULD BE THE NEXT REFERRAL SO CM REACHED OUT TO THEM AND SPOKE TO [facility] REGARDING ABOVE DOCUMENTATION. HE STATED HE WOULD CONTINUE TO FOLLOW PT FOR HH OR DISCHARGE NEEDS. PT DENIES FURTHER NEEDS @ THIS TIME WITH CONTACT INFORMATION PROVIDED. CURRENT GOAL FOR PT IS TO DISCHARGE BACK HOME WITH TO ROUTINE SELF CARE UPON DISCHARGE. NO FURTHER CM OR DISCHARGE NEEDS KNOWN @ THIS TIME.
[2017-12-18] MEDS ORDERED: DUONEB 0.5 MG-3 MG/3 ML SOLN IH PRN (13:00)
[2017-12-18] MEDS ORDERED: TYLENOL PO PRN (13:00)
[2017-12-18] MEDS ORDERED: LOVENOX SQ SCH (13:30)
--- NOTE | 2017-12-18 15:53 | HPH ---
ADMIT DATE: 12/18/2017 CHIEF COMPLAINT: Altered mental status. HISTORY OF PRESENT ILLNESS: This patient is a 72-year-old woman with a past medical history significant for coronary artery disease, prior CVA, peripheral vascular disease, hypertension, hyperlipidemia, rheumatoid arthritis, COPD and tobacco abuse who presented to ER with altered mental status. There was no loss of consciousness. She just felt lightheaded. There have been no recent medication changes. No falls or trauma. She denies any fever or chills. She does have COPD and continues to smoke. She is not on home oxygen. No other acute complaints. She is alert and oriented at time of exam. PAST MEDICAL HISTORY: Includes prior CVA, peripheral vascular disease, coronary artery disease with prior SC, COPD, tobacco abuse, hypertension, GERD, hyperlipidemia, rheumatoid arthritis, chronic pain and iron deficiency anemia. PAST SURGICAL HISTORY: She has had a heart catheterization, , hysterectomy, PTCA with stents placed, tonsillectomy and tubal ligation. ALLERGIES: ALLERGIC TO SULFA, CODEINE AND MORPHINE. HOME MEDICATIONS: List includes gabapentin 100 mg daily, albuterol nebulizer treatments as needed, Advair Diskus twice a day, Colace 100 mg twice a day, Senna 8.6 mg twice a day, citalopram 40 mg daily, Protonix 40 mg daily, prednisone 7.5 mg daily, iron sulfate 325 mg daily, lactulose 10 grams daily, Flonase daily, Procardia-XL 60 mg daily, tramadol p.r.n. for pain, Flexeril 10 mg 3 times a day as needed for muscle spasms, metoprolol succinate 50 mg at night, Actemra 80 mg IV every 4 weeks, simvastatin 80 mg at night, lisinopril 40 mg daily and aspirin 81 mg daily. SOCIAL HISTORY: Lives at home. Positive tobacco use. Denies illicit drug use, alcohol use history. FAMILY HISTORY: Negative for early coronary artery disease or diabetes. REVIEW OF SYSTEMS: CARDIAC: She denies chest pain. She does have some shortness of breath, dyspnea on exertion. PULMONARY: No cough, pleuritic chest pain. GASTROINTESTINAL: No nausea, vomiting, diarrhea or constipation. All else negative in 10 point review of system except as in HPI. PHYSICAL EXAMINATION: VITAL SIGNS: Upon arrival to the ER, height 170.2 cm, weight 79.4 kilograms. Temperature 97.5, pulse 88, respiratory rate 14, blood pressure 85/52, O2 saturations are 92% on 2 liters nasal cannula. GENERAL: She is alert, in no acute distress at time of exam, chronic ill-appearing lady. HEENT: Pupils equal, round, reactive to light. Sclerae are anicteric. Oropharynx is clear. Mucous membranes are moist. NECK: Supple, no lymphadenopathy. CARDIOVASCULAR: At time of exam was slightly tachycardic, regular rhythm. LUNGS: Decreased aeration in all lung [place] equally. No wheezing. ABDOMEN: Soft. Bowel sounds are present, nontender to palpation. EXTREMITIES: No cyanosis, clubbing or significant edema. NEUROLOGIC: Grossly nonfocal. LABORATORY DATA: CBC: White count 14.9, hemoglobin 14.0 and platelets 199. Differential: 77% neutrophils, 7% lymphocytes, 12% monocytes. Chemistry: Sodium 133, potassium 4.0, chloride 97, CO2 25, BUN 22, creatinine 1.98, glucose 117, calcium is 9.1. Blood gas done in the Emergency Room, pH is 7.30, pCO2 41.8, pO2 66.5, base excess negative 5.8 with a lactate of 1.0, PT of 10.6 and PTT 21.2. UA, pH is 5.0, specific gravity is 1.020 with 10-25 wbc's, moderate bacteria. IMAGING STUDIES: CT head was negative acute findings. Chest x-ray, no acute cardiopulmonary disease process. She does have air fluid levels noted on the right maxillary sinus. ASSESSMENT AND PLAN: This patient is a 72-year-old woman here with evidence of COPD exacerbation, meet criteria for sepsis with SIRS criteria being tachycardia, leukocytosis with probable urinary tract infection as comorbid source of infection, numerous other medical problems. 1. We will continue her home cardiovascular medications. 2. We will hold lisinopril for now due to drug side effects. 3. IV antibiotics with IV Rocephin for now. Followup urine culture and susceptibilities. 4. Nebulizer treatments as needed, O2 protocol. 5. We will continue her immunosuppressive medications with steroids. 6. Appropriate p.r.n. pain and nausea medication. 7. DVT prophylaxis will be with Lovenox. 8. She does have acute renal failure. Overnight fluids did resolve. The acute renal failure is likely secondary to acute tubular necrosis. Time spent on 12/18/2017 is 45 minutes. This plan was discussed with the patient. She is her own decision maker. She does understand and concur with plans. Sukhi Almaraz MD DR: MIKE/lucy JOB# [id number]
--- NOTE | 2017-12-18 18:35 | NUR ---
REPORT REPORT RECEIVED FROM [place] BYRNE LVN. PT IN BED WATCHING TV IN [employer], NO S/S OF DISTRESS NOTED, ASSUMED CARE OF PT AT THIS TIME, CALL LIGHT WITHIN REACH AND PT ABLE TO USE, BED LOW AND LOCKED, WILL CONTINUE TO MONITOR.
[2017-12-18] MEDS ORDERED: PROTONIX PO ONE (19:14)
[2017-12-18] MEDS ORDERED: TOPROL XL PO SCH (21:00)
[2017-12-18] MEDS ORDERED: ZOCOR PO SCH (21:00)
[2017-12-19 05:23] LABS: BASOPHIL % 0.4 % (0.0-0.2); EOSINOPHIL # 0.3 10^3/uL (0.0-0.2); HEMOGLOBIN 11.8 g/dL (12.0-15.0); LYMPHOCYTES # 1.2 10^3/uL (1.0-4.8); LYMPHOCYTES % 10.7 % (24.0-44.0); MEAN CELL HGB 24.7 pg (26-34); MEAN CORP VOLUME 79.7 fL (78-100); MEAN PLATELET VOLUME 10.4 fL (7.8-11.0); MONOCYTES # 0.7 10^3/uL (0.3-0.8); MONOCYTES % 6.5 % (5.0-12.0); NEUTROPHIL # 8.7 10^3/uL (1.8-7.7); NEUTROPHILS % 79.1 % (41.0-85.0); RED CELL DISTRIBUTION WIDTH 17.7 % (11.5-14.5)
[2017-12-19] MEDS: NS 1000ML 1,000 ML IV SCH (05:30)
[2017-12-19 05:33] VITALS: BP 124/71
[2017-12-19 05:33] LABS: CALCIUM 8.1 mg/dL (8.4-10.5); CARBON DIOXIDE 24.6 mmol/L (20.0-32)
--- NOTE | 2017-12-19 07:11 | NUR ---
REPORT RECEIVED REPORT, ASSUMED CARE OF PT
[2017-12-19 07:59] VITALS: BP 131/75
[2017-12-19] MEDS: NEURONTIN PO SCH (08:49)
[2017-12-19] MEDS: SENOKOT PO SCH (08:50)
[2017-12-19] MEDS ORDERED: PREDNISONE PO SCH (09:00)
[2017-12-19] MEDS ORDERED: PROCARDIA PO SCH (09:00)
[2017-12-19] MEDS ORDERED: PROTONIX PO SCH (09:00)
[2017-12-19] MEDS ORDERED: CELEXA PO SCH (09:00)
[2017-12-19] MEDS ORDERED: ASPIRIN PO SCH (09:00)
[2017-12-19] MEDS ORDERED: CEPHULAC PO SCH (09:00)
[2017-12-19] MEDS ORDERED: ZESTRIL PO SCH (09:00)
[2017-12-19] MEDS ORDERED: AMOX500T PO (09:39)
--- NOTE | 2017-12-19 09:49 | PRM.DC ---
Discharge Summary Date of Discharge: Dec 19, 2017 Reason for Visit: Respiratory distress Patient History: Chronic obstructive pulmonary disease 33 FATHER, , Age:82 Congestive heart failure 32 MOTHER, , Age:86 Diabetes mellitus 32 MOTHER, , Age:86 Hypertension 32 MOTHER, , Age:86 33 FATHER, , Age:82 Unknown No Family History of: Alzheimer's disease Asthma Cerebrovascular disorder Diabetes insipidus Parkinson's disease History Present Illness: (1) Gingivitis Status: Acute ICD Code: K05.10 - Chronic gingivitis, plaque induced SNOMED: 44980895 Assessment & Plan: Amoxicillin twice daily for seven days (2) Acute respiratory failure with hypoxia Status: Chronic ICD Code: J96.01 - Acute respiratory failure with hypoxia SNOMED: 84714699, 749002870 Assessment & Plan: Home oxygen via nasal cannula (3) COPD (chronic obstructive pulmonary disease) Status: Chronic ICD Code: J44.9 - Chronic obstructive pulmonary disease, unspecified SNOMED: 38327856 (4) Dehydration Status: Resolved ICD Code: E86.0 - Dehydration SNOMED: 76191751 (5) Gastroenteritis Status: Resolved ICD Code: K52.9 - Noninfective gastroenteritis and colitis, unspecified SNOMED: 34430453 General: Alert, Oriented X3, Cooperative, No acute distress HEENT: PERRLA, EOMI Neck: Supple, No JVD Lungs: Clear to auscultation, Normal air movement Heart: Regular rate, Normal S1, Normal S2 Abdomen: Normal bowel sounds, Soft, No tenderness Extremities: No clubbing, No cyanosis Skin: No breakdown Neuro: Normal speech, Strength at 5/5 X4 ext, Sensation intact Psych/Mental Status: Mood NL Results(Labs/Rad) Laboratory Tests Test 12/18/17 02:10 12/18/17 02:45 12/18/17 03:49 12/18/17 04:30 White Blood Count 14.9 10^3/uL Red Blood Count 5.64 10^6/uL Hemoglobin 14.0 g/dL Hematocrit 44.0 % Mean Corpuscular Volume 78.0 fL Mean Corpuscular Hemoglobin 24.8 pg Mean Corpuscular Hemoglobin Concent 31.8 g/dL Red Cell Distribution Width 17.4 % Platelet Count 199 10^3/uL Mean Platelet Volume 10.8 fL Neutrophils (%) (Auto) 77.4 % Lymphocytes (%) (Auto) 7.0 % Monocytes (%) (Auto) 11.7 % Neutrophils # (Auto) 11.6 10^3/uL Lymphocytes # (Auto) 1.0 10^3/uL Monocytes # (Auto) 1.7 10^3/uL Absolute Immature Granulocyte (auto 0.07 10^3 u/L Eosinophils % 3.1 % Basophils % 0.3 % Basophils # 0.0 10^3/uL Eosinophil Count 0.5 10^3/uL Prothrombin Time 10.6 SEC Prothrombin Time INR (Non-Therap) 1.1 Activated Partial Thromboplast Time 21.2 SEC Sodium Level 133 mmol/L Potassium Level 4.0 mmol/L Chloride Level 97.0 mmol/L Carbon Dioxide Level 25.6 mmol/L Glucose Level 117 mg/dL Blood Urea Nitrogen 22 mg/dL Creatinine 1.98 mg/dL Calcium Level 9.1 mg/dL Anion Gap 14.4 Estimated GFR () 30.1 BUN/Creatinine Ratio 11.0 Percent Immature Gran (Cell Imm) 0.50 % Differential Total Cells Counted 100 #CELLS Segmented Neutrophils 81 % Lymphocytes 4 % Atypical Lymphocytes 12 % Urine Collection Type CCMS Urine Color YELLOW Urine Appearance HAZY Urine Bilirubin NEGATIVE MG/DL Urine Ketones NEGATIVE Urine Specific [place] 1.020 Urine pH 5 Urine Protein 100 mg/dL Urine Urobilinogen 1.0 Urine Nitrate NEGATIVE Urine Leukocyte Esterase 500/uL 2+ Urine Blood 25 1+ Urine RBC NONE SEEN RBC/HPF Urine WBC 10-25 WBC/HPF Urine Squamous Epithelial Cells FEW #/HPF Urine Renal Epithelial Cells FEW #/HPF Urine Amorphous Sediment MODERATE Urine Bacteria MODERATE Urine Other MUCUS 2+ #/HPF Urine Glucose NORMAL Blood Gas Sample Site RT BRACIAL ARTERY Blood Gas pH 7.304 Blood Gas PCO2 41.8 mmHg Blood Gas PO2 66.5 mmHg Blood Gas HCO3 20.3 mmol/L Blood Gas Base Excess -5.8 mmol/L Ned Test N/A Arterial Blood Oxygen Saturation 90.7 % Deoxyhemoglobin 9.0 % Carboxyhemoglobin 2.9 % Methemoglobin 0.5 % Total Hemoglobin 13.6 % Total Oxygen Concentration 16.8 % Lactic Acid (Blood Gas) 1.0 MMOL/L Blood Gas Temperature 37.0 FiO2 0.28 % Bicarbonate 21.6 mmol/L Test 12/18/17 09:52 12/19/17 05:15 White Blood Count 17.4 10^3/uL 11.0 10^3/uL Red Blood Count 5.26 10^6/uL 4.78 10^6/uL Hemoglobin 13.0 g/dL 11.8 g/dL Hematocrit 41.8 % 38.1 % Mean Corpuscular Volume 79.5 fL 79.7 fL Mean Corpuscular Hemoglobin 24.7 pg 24.7 pg Mean Corpuscular Hemoglobin Concent 31.1 g/dL 31.0 g/dL Red Cell Distribution Width 17.6 % 17.7 % Platelet Count 192 10^3/uL 224 10^3/uL Mean Platelet Volume 10.2 fL 10.4 fL Neutrophils (%) (Auto) 85.3 % 79.1 % Lymphocytes (%) (Auto) 2.4 % 10.7 % Monocytes (%) (Auto) 11.1 % 6.5 % Neutrophils # (Auto) 14.8 10^3/uL 8.7 10^3/uL Lymphocytes # (Auto) 0.4 10^3/uL 1.2 10^3/uL Monocytes # (Auto) 1.9 10^3/uL 0.7 10^3/uL Absolute Immature Granulocyte (auto 0.04 10^3 u/L 0.03 10^3 u/L Eosinophils % 0.9 % 3.0 % Basophils % 0.1 % 0.4 % Basophils # 0.0 10^3/uL 0.0 10^3/uL Eosinophil Count 0.2 10^3/uL 0.3 10^3/uL Sodium Level 137 mmol/L 139 mmol/L Potassium Level 4.6 mmol/L 3.9 mmol/L Chloride Level 102.0 mmol/L 105.0 mmol/L Carbon Dioxide Level 22.7 mmol/L 24.6 mmol/L Anion Gap 16.9 13.3 Blood Urea Nitrogen 22 mg/dL 12 mg/dL Creatinine 1.24 mg/dL 0.91 mg/dL Estimated GFR () 51.6 73.7 BUN/Creatinine Ratio 17.0 13.0 Glucose Level 127 mg/dL 106 mg/dL Calcium Level 8.0 mg/dL 8.1 mg/dL Total Bilirubin 0.3 mg/dL Aspartate Amino Transf (AST/SGOT) 25 U/L Alanine Aminotransferase (ALT/SGPT) 26 U/L Alkaline Phosphatase 75 U/L Total Creatine Kinase 53 U/L Creatine Kinase MB 1.4 ng/mL Troponin I < 0.02 ng/mL Total Protein 6.1 g/dL Albumin 3.1 g/dL Globulin 3.0 Percent Immature Gran (Cell Imm) 0.20 % 0.30 % Scheduled Albuterol Sulfate (Albuterol Sulfate), 1 VIAL NEB BID, (Reported) Amoxicillin (Amoxicillin), 500 MG PO BID Aspirin (Aspirin), 81 MG PO DAILY, (Reported) Citalopram Hydrobromide (Citalopram Hbr), 1 TAB PO DAILY, (Reported) Ferrous Sulfate (Ferrous Sulfate), 325 MG PO DAILY, (Reported) Gabapentin (Gabapentin), 1 CAP PO DAILY24, (Reported) Lactulose (Lactulose), 10 GM PO DAILY, (Reported) Lisinopril (Lisinopril), 40 MG PO DAILY, (Reported) Metoprolol Succinate (Metoprolol Succinate), 50 MG PO HS, (Reported) Nifedipine (Procardia Xl), 1 TAB PO DAILY, (Reported) Omeprazole (Omeprazole), 20 MG PO DAILY, (Reported) Pantoprazole Sodium (Protonix), 1 TAB PO DAILY, (Reported) Prednisone (Prednisone), 3 TAB PO DAILY, (Reported) Sennosides (Senna), 8.6 MG PO BID, (Reported) Simvastatin (Simvastatin), 80 MG PO HS, (Reported) Tocilizumab (Actemra), 80 MG IV EVERY 4 WEEKS, (Reported) Umeclidinium Brm/Vilanterol Tr (Anoro Ellipta 62.5-25 Mcg INH), 1 EACH IH DAILY24, (Reported) Scheduled PRN Cyclobenzaprine Hcl (Flexeril), 5 MG PO TID PRN for PAIN, (Reported) Docusate Sodium (Colace), 1 CAP PO BID PRN for CONSTIPATION, (Reported) Tramadol Hcl (Tramadol Hcl), 50 MG PO Q6HR PRN for PAIN, (Reported) Discontinued Medications Fluticasone Propionate (Flonase Allergy Relief), 9.9 ML NS DAILY, (Reported) Discontinued Reason: No Longer Taking Fluticasone/Salmeterol (Advair 250-50 Diskus), 1 PUFF IH BID, (Reported) Discontinued Reason: No Longer Taking Sepsis Evaluation @ Discharge Course Blood Pressure Systolic: 131 Blood Pressure Diastolic: 75 Blood Pressure Mean: 93 Notes see dictated report Plan Discharge Date: Dec 19, 2017 Dicharge DX: 1. COPD exacerbation, 2. Gingivitis, 3. Acute on chronic hypoxemia Discharge Disposition: Stable Plan Medications per discharge list Diet and activity as tolerated Home oxygen Follow up with PCP next week Follow up with Dentist next week Discharge plans discussed with patient, she is her own decision maker and does understand and concur with plans Time spent 25 minutes CHEYANNE SEARS MD Dec 19, 2017 09:49
[2017-12-19 10:31] VITALS: BP 131/75
--- NOTE | 2017-12-19 10:31 | NUR ---
DISCHARGE SPOUSE AT BEDSIDE. EDUCATION PROVIDED TO PT REGARDING NEW MEDICATION (AMOXICILLIN), DISEASE PROCESS, REPORTABLE S/S, AND FOLLOW UP APPOINTMENT. PT VERBALIZED UNDERSTANDING, AND HAD NO QUESTIONS AT THIS TIME. IV D/C BY ROLF WISE USING ASEPTIC TECHNIQUE. PT TAKEN DOWN TO PRIVATE AUTO VIA WHEELCHAIR BY FRANDY BANSAL. NO S/S OF DISTRESS NOTED.
--- NOTE | 2017-12-19 16:00 | NUR ---
UPDATE HH REFUSAL [facility] WITH [facility] NOTIFIED CM AND STATED THEY ATTEMPTED TO VISIT WITH PT REGARDING HH SERVICES AND BENEFITS DUE TO HOSPITAL ADMISSION, BUT PT REFUSED THEIR SERVICES. PT STATED, "I AM FEELING MUCH BETTER AND DO NOT THINK HH WOULD BE BENEFICIAL @ THIS TIME. I HAVE YOUR PHONE NUMBER AND I WILL CALL YOU IF I NEED YOU".
--- NOTE | 2017-12-19 23:56 | DSH ---
DATE OF DISCHARGE: 12/19/2017 DISPOSITION: Routine discharge home. PRINCIPAL DIAGNOSES AT DISCHARGE: At the time of discharge COPD exacerbation, [id number] hypoxemic respiratory failure, gingivitis, dehydration, gastroenteritis. BRIEF SUMMARY: This patient was initially admitted 12/18/2016 to the Emergency Room early in the morning hours with evidence of COPD exacerbation. She also had recently seen in the ER, was prescribed an antibiotic for gingivitis. She has some nausea and vomiting prior to presentation. She is on home oxygen. She was admitted for initially what appeared to be sepsis secondary to COPD exacerbation with likely urinary tract infection and gingivitis plus other medical problems with normal mentation at time of arrival to the floor. She was given IV antibiotics and IV fluids. Her home medication will continue, nebulizer treatments scheduled and as needed. Over the next 24 hours, she did significantly improve and on day of discharge, she was tolerating diet well at baseline, feeling well, wanting to go home. She did improve much faster than expected with IV antibiotic therapy. She had some mild left wrist edema. It is on the side that she did have IV access with and she kept it low and had some dependent edema. There is no other acute changes. The patient was feeling well. Routine discharge home. Discharged on home oxygen. DISCHARGE MEDICATION: Resume her previous medications plus fill amoxicillin 500 mg b.i.d. for 7 days. DISCHARGE FOLLOWUP: Primary care physician next week and with a dentist next week for the gingivitis. DISCHARGE ACTIVITY: As tolerated. DISCHARGE DIET: Will be as tolerated. Discharge plans were discussed with the patient. She is own decision maker. She does understand and concur with plans. Time spent on discharge is 25 minutes. Sukhi Almaraz MD DR: MIKE/lucy JOB# [id number] SANDRA
== END 2017-12-19 09:40 | disposition home or self-care (01) | DRG 871 ==
LOC: ER 01:51 → EDBD 01:51 → OBSVTOIN 04:57 → MS 04:57
PROVIDERS: ADMIT Internal Medicine; ATTEND Internal Medicine
DX: A41.9 Sepsis, unspecified organism (principal); J96.21 Acute and chronic respiratory failure with hypoxia; N17.9 Acute kidney failure, unspecified; J44.1 Chronic obstructive pulmonary disease with (acute) exacerbation; N39.0 Urinary tract infection, site not specified; W18.39XA Other fall on same level, initial encounter; E78.5 Hyperlipidemia, unspecified; F17.200 Nicotine dependence, unspecified, uncomplicated; I10 Essential (primary) hypertension; I25.10 Atherosclerotic heart disease of native coronary artery without angina pectoris; I73.9 Peripheral vascular disease, unspecified; G89.29 Other chronic pain; M06.9 Rheumatoid arthritis, unspecified; K52.9 Noninfective gastroenteritis and colitis, unspecified; K05.10 Chronic gingivitis, plaque induced; E86.0 Dehydration; R22.32 Localized swelling, mass and lump, left upper limb; K21.9 Gastro-esophageal reflux disease without esophagitis; Z86.73 Personal history of transient ischemic attack (TIA), and cerebral infarction without residual deficits; Z90.710 Acquired absence of both cervix and uterus; Z98.51 Tubal ligation status; Z88.2 Allergy status to sulfonamides; I25.2 Old myocardial infarction; Z88.8 Allergy status to other drugs, medicaments and biological substances; Z79.82 Long term (current) use of aspirin; Z79.899 Other long term (current) drug therapy; Z82.49 Family history of ischemic heart disease and other diseases of the circulatory system; Z95.5 Presence of coronary angioplasty implant and graft; Z83.3 Family history of diabetes mellitus; Z83.6 Family history of other diseases of the respiratory system; Z99.81 Dependence on supplemental oxygen; Y93.89 Activity, other specified; Y92.098 Other place in other non-institutional residence as the place of occurrence of the external cause; Y99.8 Other external cause status
CPT/HCPCS: 36415; 36600; 70450; 70486; 71045; 80048; 80053; 81000; 82550; 82553; 82803; 84484; 85025; 85610; 85730; 87040; 87086; 93005; 96361; 96365; 99285; J0696; J2405; J7030; J7050; J7512

== ENCOUNTER 2017-12-24 20:34 | Observation (INO) | payer MEDICARE, OTHER ==
[~2017-12-24] VITALS: Ht 167.6 cm; Wt 85.0 kg
[~2017-12-24 20:34] MED LIST changes: +AMOX500T PO; -CITA20TA5 PO; +CITA20TA6 PO; -METO50TA2 PO; +METO50TA6 PO; +UMEC1DIS IH
[2017-12-24 20:46] VITALS: BP 180/103
[2017-12-24] MEDS ORDERED: SUBLIMAZE IM STA (20:57)
--- NOTE | 2017-12-24 20:59 | NUR ---
RECTAL EXAM PERFORMED BY DR FALL, NO STOOL NOTED IN RECTUM NEW ORDERS RECEIVED TO START ABDOMINAL PAIN PROTOCOL.
[2017-12-24 21:00] VITALS: BP 202/94
[2017-12-24] MEDS ORDERED: SUBLIMAZE IV STA (21:06)
[2017-12-24] MEDS ORDERED: TORADOL ONE (21:08)
[2017-12-24] MEDS ORDERED: TORADOL IV STA (21:08)
--- NOTE | 2017-12-24 21:13 | NUR ---
FENTANYL 50MCG IV DRAWN UP, EXPLAINED MEDICATION TO PATIENT, WHEN SYRINGE WAS CONNECTED TO PATIENT SHE STATED SHE CANNOT TAKE FENTANYL BECAUSE IT WILL MAKE HER SICK AT HER STOMACH. DR FALL NOTIFIED, NEW ORDER RECEIVED FOR TORADOL 15MG IV X1 Addendum: 12/24/17 at 2114 by EDENILSON FENTANYL VIAL ACCIDENTALLY PULLED FROM FLOOR STOCK. NEEDS TO BE CREDITED TO THIS PATIENT ACCOUNT
--- NOTE | 2017-12-24 21:14 | ER.PDOC ---
General Chief Complaint: Abdomen Pain Stated Complaint: ABDOMINAL PAIN Time seen by MD: 21:09 Source: patient Exam Limitations: no limitations History of Present Illness Initial Comments 72 year old white female with advanced RA with recurrent ER visits for pain control comes in with abdominal pain. She attributes this to constipation and inability to move bowels for the last three days in spite of oral laxatives and enemas. No fever, no vomiting but feels sick to her stomach. Refuses to take any narcotics tonight because of side effects. No chills. Appetite is poor. Pain is generalized and graded as 10/10 Timing/Duration: getting worse Severity/Quality: severe Associated Symptoms: nausea/vomiting Allergies: Coded Allergies: Sulfa (Sulfonamide Antibiotics) (Verified Allergy, Intermediate, Anaphylaxis Shock, 08/24/15) codeine (Verified Allergy, Intermediate, Nausea, 12/24/17) SEVERE PERSISTENT VOMITING fentanyl (Verified Allergy, Intermediate, Nausea, 12/24/17) SEVERE PERSISTENT VOMITING, PATIENT REFUSES TO TAKEN ANY OPIOIDS FOR PAIN morphine (Verified Allergy, Intermediate, Nausea, 12/24/17) EXTREME VOMITING Home Meds Active Scripts Amoxicillin (AMOXICILLIN) 500 Mg Tablet, 500 MG PO BID for 7 Days, #14 TAB Prov:CHEYANNE SEARS MD 12/19/17 Reported Medications Umeclidinium Brm/Vilanterol Tr (Anoro Ellipta 62.5-25 Mcg INH) 1 Each Disk.w.dev , 1 EACH IH DAILY24 12/18/17 Gabapentin (GABAPENTIN) 100 Mg Capsule, 1 CAP PO DAILY24, #90 CAP 2 Refills 11/02/17 Albuterol Sulfate (ALBUTEROL SULFATE) 2.5 Mg/0.5 Ml Vial.neb, 1 VIAL NEB BID, # 120 VIAL 5 Refills 11/02/17 Docusate Sodium (COLACE) 100 Mg Capsule, 1 CAP PO BID Y for CONSTIPATION, #30 CAP 11/02/17 Sennosides (SENNA) 8.6 Mg Tablet, 8.6 MG PO BID, TABLET 11/02/17 Citalopram Hydrobromide (CITALOPRAM HBR) 40 Mg Tablet, 1 TAB PO DAILY, #90 TAB 1 Refill 11/02/17 Pantoprazole Sodium (PROTONIX) 40 Mg Tablet.dr, 1 TAB PO DAILY, #30 TAB 5 Refills 11/02/17 Prednisone (PREDNISONE) 2.5 Mg Tablet, 3 TAB PO DAILY, #30 TAB 3 Refills 11/02/17 Ferrous Sulfate (FERROUS SULFATE) 325 Mg Tablet.dr, 325 MG PO DAILY 08/24/15 Lactulose (LACTULOSE) 10 Gm/15 Ml Solution, 10 GM PO DAILY 08/24/15 Nifedipine (PROCARDIA XL) 60 Mg Tab.er.24, 1 TAB PO DAILY, #90 TAB 3 Refills 08/24/15 Tramadol Hcl (TRAMADOL HCL) 50 Mg Tablet, 50 MG PO Q6HR Y for PAIN, TABLET 03/01/15 Cyclobenzaprine Hcl (FLEXERIL) 10 Mg Tablet, 5 MG PO TID Y for PAIN, TABLET 03/01/15 Metoprolol Succinate (METOPROLOL SUCCINATE) 50 Mg Tab.er.24h, 50 MG PO HS 03/01/15 Tocilizumab (ACTEMRA) 80 Mg/4 Ml Vial, 80 MG IV EVERY 4 WEEKS, VIAL 12/30/13 Simvastatin (SIMVASTATIN) 80 Mg Tablet, 80 MG PO HS, TABLET 12/30/13 Lisinopril (LISINOPRIL) 40 Mg Tablet, 40 MG PO DAILY, TABLET 12/30/13 Aspirin (ASPIRIN) 81 Mg Tab.chew, 81 MG PO DAILY, TAB.CHEW 12/30/13 Omeprazole (OMEPRAZOLE) 20 Mg Tablet.dr, 20 MG PO DAILY 12/30/13 Discontinued Reported Medications Fluticasone/Salmeterol (ADVAIR 250-50 DISKUS) 1 Each Disk.w.dev, 1 PUFF IH BID, #3 INHALER 3 Refills 11/02/17 Fluticasone Propionate (Flonase Allergy Relief) 9.9 Ml Pelican.susp, 9.9 ML NS DAILY 08/24/15 Vital Signs First Vital Signs Date Time Temp Pulse Resp B/P (MAP) Pulse Ox O2 Delivery O2 Flow Rate FiO2 12/18/17 20:33 89 12/24/17 20:41 97.7 16 94 Room Air 12/24/17 20:46 180/103 (128) Last Vital Signs Date Time Temp Pulse Resp B/P (MAP) Pulse Ox O2 Delivery O2 Flow Rate FiO2 12/24/17 20:46 97.7 104 16 180/103 (128) 94 Room Air Past Medical History Medical History: coronary artery disease, COPD, other (advanced RA) Surgical History: no surgical history LMP (females 10-50): postmenopause Social History Smoking: less than 1 pack/day Alcohol Use: none Drug Use: none Constitutional: no symptoms reported EENTM: no symptoms reported Respiratory: no symptoms reported Cardiovascular: no symptoms reported Gastrointestinal: see HPI Genitourinary: no symptoms reported Musculoskeletal: no symptoms reported Skin: no symptoms reported Psychiatric/Neurological: no symptoms reported Endocrine: no symptoms reported Hematologic/Lymphatic: no symptoms reported Physical Exam General Appearance: No Apparent Distress, Anxious HEENT: PERRL/EOMI, Normal ENT Inspection, TMs Normal, Pharynx Normal Neck: Non-Tender, Full Range of Motion, Supple, Normal Inspection Respiratory: chest non-tender, lungs clear, normal breath sounds, no respiratory distress, no accessory muscle use Cardiovascular: Normal Peripheral Pulses, Regular Rate, Rhythm, No Edema, No Gallop, No JVD, No Murmur Gastrointestinal: Normal Bowel Sounds, No Organomegaly, No Pulsatile Mass, Non Tender Pelvic: Normal External Exam Rectal: Normal Exam, Normal Rectal Tone Back: Normal Inspection, No CVA Tenderness, No Vertebral Tenderness Extremities: Normal Range of Motion, Non-Tender, Normal Inspection, No Calf Tenderness, Normal Capillary Refill, Pelvis Stable Neurologic/Psychiatric: [employer] II-XII NML as Tested, No Motor/Sensory Deficits, Alert, Normal Mood/Affect, Oriented x 3 Skin: Normal Color, Warm/Dry Lymphatic: No Adenopathy Results/Orders Results/Orders Administered Medications Medications (Trade) Dose Ordered Sig/Tamiko Route PRN Reason Start Time Stop Time Status Last Admin Dose Admin Fentanyl Citrate (Sublimaze) 50 mcg STAT STAT IV 12/24/17 21:06 12/24/17 21:07 DC 12/24/17 21:07 Course Blood Pressure Systolic: 180 Blood Pressure Diastolic: 103 Blood Pressure Mean: 128 Departure Time of Disposition: 00:52 Disposition: 09 ADMITTED INPATIENT Impression: Primary Impression: Constipation Additional Impression: Pneumonia Condition: Stable Referrals: FERMIN DASILVA MD (PCP) PRIMARY CARE PROVIDER Duration or Time Spent with Pa: 60 Problem Qualifiers Primary Impression: Constipation Constipation type: unspecified constipation type Qualified Codes: K59.00 - Constipation, unspecified Additional Impression: Pneumonia Pneumonia type: due to unspecified organism Laterality: right Lung location : lower lobe of lung Qualified Codes: J18.1 - Lobar pneumonia, unspecified organism EBENEZER FALL MD Dec 24, 2017 21:14
[2017-12-24 21:22] LABS: BASOPHIL # 0.1 10^3/uL (0.0-0.1); BASOPHIL % 0.6 % (0.0-0.2); EOSINOPHIL # 0.5 10^3/uL (0.0-0.2); EOSINOPHIL % 4.1 % (0.0-5.0); HEMOGLOBIN 14.5 g/dL (12.0-15.0); LYMPHOCYTES # 1.6 10^3/uL (1.0-4.8); LYMPHOCYTES % 11.8 % (24.0-44.0); MEAN CELL HGB 24.5 pg (26-34); MEAN CELL HGB CONCENTRATION 31.7 g/dL (33-37); MEAN CORP VOLUME 77.4 fL (78-100); MEAN PLATELET VOLUME 10.4 fL (7.8-11.0); MONOCYTES # 1.8 10^3/uL (0.3-0.8); MONOCYTES % 13.5 % (5.0-12.0); NEUTROPHIL # 9.3 10^3/uL (1.8-7.7); NEUTROPHILS % 69.7 % (41.0-85.0); RED CELL DISTRIBUTION WIDTH 18.7 % (11.5-14.5); WHITE BLOOD CELL 13.3 10^3/uL (4.5-11.0)
[2017-12-24] MEDS ORDERED: HNS 1000ML 1,000 ML IV STA (21:26)
[2017-12-24 21:30] VITALS: BP 172/94
--- NOTE | 2017-12-24 21:33 | NUR ---
NG TUBE 14FR INTO THE RIGHT NARE, SECURED TO BRIDGE OF NOSE PLACEMENT CHECKED BY AIR BOLUS AUSCULTATION TO THE XYPHOID PROCESS. GASTRIC CONTENTS ASPIRATED.
--- NOTE | 2017-12-24 21:33 | DIREP ---
PROCEDURE:XRAY ABDOMEN SINGLE VW, 3 images COMPARISON:None. INDICATIONS:constipation FINDINGS: BOWEL GAS PATTERN:Dilated loops of colon, particularly in the right lower quadrant where there is marked dilatation of the sigmoid colon. Retained stool in the colon also seen. CALCIFICATIONS:None significant. LUNGS:Clear. BONES:Normal. OTHER:No additional findings. CONCLUSION:Dilated loops of colon, particularly in the right lower quadrant where there is marked dilatation of the sigmoid colon. Retained stool in the colon also seen. Sigmoid volvulus felt most likely. Dictated by: Albert Welch M.D. on 12/24/2017 at 09:29 PM
--- NOTE | 2017-12-24 21:36 | NUR ---
RAD BOONE, RAD AT BEDSIDE TO BEGIN ADMINISTRATION OF ORAL CONTRAST THROUGH NG TUBE.
[2017-12-24] MEDS ORDERED: ZOFRAN IV STA (21:38)
[2017-12-24] MEDS ORDERED: ZOFRAN ONE (21:39)
[2017-12-24] MEDS ORDERED: HNS 1000ML 1,000 ML ONE (21:39)
[2017-12-24] MEDS ORDERED: BENADRYL IV STA (21:40)
--- NOTE | 2017-12-24 21:40 | NUR ---
FENTANYL PATIENT TOLD DR FALL SHE WILL TAKE FENTANYL WITH BENADRYL. NEW ORDERS RECEIVED TO ADMINISTER FENTANYL 50MCG IV WITH BENADRYL 25MG IV.
[2017-12-24 21:41] LABS: CALCIUM 9.2 mg/dL (8.4-10.5); CARBON DIOXIDE 28.6 mmol/L (20.0-32)
[2017-12-24] MEDS ORDERED: BENADRYL ONE (21:41)
--- NOTE | 2017-12-24 21:54 | NUR ---
OXYGEN PATIENT HAS HISTORY OF COPD, CONTINUES TO SMOKE, WEARS OXYGEN WHEN NEEDED AT HOME. FENTANYL 50MCG IV ADMINISTERED AND FLUSHED. OXYGEN 3L/NC APPLIED AT THIS TIME. PATIENT RESTING MORE COMFORTABLY AFTER PAIN MEDICATION ADMINISTRATION.
--- NOTE | 2017-12-24 21:59 | NUR ---
STATUS PATIENT ASLEEP, VITALS WNL RESPIRATIONS EVEN AND UNLABORED SITTING AT BEDSIDE DENIES NEEDS OR CONCERNS AT THIS TIME
[2017-12-24 22:00] VITALS: BP 160/87
[2017-12-24 23:00] VITALS: BP 170/92
[2017-12-24 23:30] VITALS: BP 183/92
[2017-12-25] VITALS (9 sets, daily range): BP systolic 146–187; BP diastolic 82–106
--- NOTE | 2017-12-25 00:40 | DIREP ---
PROCEDURE:CT ABDOMEN/PELVIS W/ CONTRAST COMPARISON:[facility], CT, CT-ABDOMEN / PELVIS W CONTRAST, 12/31/2013, 00:22 AM. INDICATIONS:abdominal distension TECHNIQUE:Axial images were created through the abdomen and pelvis with non-ionic intravenous contrast material. Oral contrast was administered. Sagittal and coronal reconstructions were performed from source images. FINDINGS: LUNG BASES:Patchy infiltrate in the right lower lobe. Possible airspace disease in the left lower lobe versus atelectasis. Dependent atelectasis. Hiatal hernia with nasogastric tube. LIVER:Normal. No significant liver lesions are identified. BILIARY:Normal. No visible dilatation or calcification. PANCREAS:Normal. No lesion, fluid collection, ductal dilatation, or atrophy. SPLEEN:Normal. No enlargement or focal lesion. ADRENALS:Normal. No mass or enlargement. URINARY TRACT:Normal. No focal lesions or hydronephrosis. AORTA/VASCULAR:Aortic and major branch atherosclerotic calcifications. Small saccular aneurysm present involving the infrarenal abdominal aorta measuring 9 x 8 mm. Small thrombosed saccular aneurysm suggested on image 50 series 2. RETROPERITONEUM:Normal. No mass or adenopathy. BOWEL/MESENTERY:Moderate amount of stool seen in the sigmoid colon. There is gaseous distention of the descending, transverse and ascending colon. Normal appendix. ABDOMINAL WALL:Fat containing ventral abdominal wall hernia with inflammatory changes. No bowel containing abdominal wall hernia. PELVIC ORGANS:The uterus is surgically absent. No visible mass. BONES:Remote T12 anterior wedge deformity. OTHER:Negative. CONCLUSION: 1. Gaseous distention of the colon to the level of the sigmoid colon. Scattered areas of decompressed and stool-filled sigmoid colon. No obvious obstructing lesions seen however underlying sigmoid stricture not excluded given gaseous distention of colon. 2. No evidence of small bowel obstruction. 3. Hiatal hernia. 4. Infiltrates in the lung bases may reflect combination of pneumonia and atelectasis. 5. Fat containing ventral wall hernia with inflammatory changes. 6. Aortic atherosclerotic disease with small saccular aneurysms. Dictated by: Morales Denson M.D. on 12/25/2017 at 00:34 AM
[2017-12-25] MEDS ORDERED: CEPHULAC PO STA (00:55)
[2017-12-25] MEDS ORDERED: NS 100ML 100 ML IV ONE (01:11)
[2017-12-25] MEDS ORDERED: ROCEPHIN ONE (01:11)
[2017-12-25] MEDS ORDERED: CEPHULAC ONE (01:11)
[2017-12-25] MEDS ORDERED: NS 1000ML 1,000 ML ONE (01:14)
[2017-12-25] MEDS: NS 1000ML 1,000 ML SCH ×4 (01:19→21:00)
[2017-12-25] MEDS: ROCEPHIN 1,000 MG in NS 100ML 100 ML IV SCH (01:19)
--- NOTE | 2017-12-25 01:38 | NUR ---
NG TUBE TAKEN OUT, TIP INTACT PATIENT DENIES NAUSEA
--- NOTE | 2017-12-25 01:42 | NUR ---
TRANSFER TO [facility] VIA STRETCHER ON 3L/NC AMBULATED WITH STEADY GAIT TO MS BED BEDSIDE REPORT GIVEN TO ZOHAIB CLAYTON AND KILEY OLIVA
--- NOTE | 2017-12-25 01:50 | NUR ---
RECEIVED PT TO UNIT VIA STRETCHER. PT TRANSFERRED FROM STRETCHER TO BED WITH MINIMAL ASSISTANCE, COMPLAINS OF PAIN 04/13. STATES THAT SHE HAS NOT HAD A BM SINCE 12/18/17. ORIENT TO ROOM CALL LIGHT IN PT REACH
[2017-12-25 02:05] LABS: BILIRUBIN,URINE NEGATIVE (NEGATIVE); UROBILINOGEN,URINE NORMAL (NEGATIVE)
[2017-12-25 02:16] LABS: APPEARANCE,URINE CLEAR (CLEAR); UA COLOR YELLOW (YELLOW)
[2017-12-25] MEDS: SUBLIMAZE IV PRN ×3 (02:20→15:01)
[2017-12-25] MEDS: BENADRYL PO PRN ×2 (02:20→15:07)
[2017-12-25] MEDS ORDERED: AMOX500T PO (02:23)
--- NOTE | 2017-12-25 05:59 | NUR ---
Pt up to bathroom to void, she moans with pain, she is unable to have bm at this time. .
--- NOTE | 2017-12-25 06:10 | NUR ---
Pt supine in bed resting quietly with eyes closed nad observed, call light in pt reach
--- NOTE | 2017-12-25 06:26 | NUR ---
Fentanyl 50mcg iv given for pain 06/13
--- NOTE | 2017-12-25 06:35 | NUR ---
BEDSIDE REPORT RECEIVED FROM ZOHAIB NORIEGA. PATIENT LYING IN BED WITH SR UP X2. CALL LIGHT WITHIN REACH. PATIENT AWAKE AND STATES "I AM HURTING SO BAD!!." PATIENT WITH FACIAL GRIMACE NOTED. PATIENT MEDICATED WITH FENTANYL IV AT 0625. WILL CONTINUE TO MONITOR PAIN MANAGEMENT.
--- NOTE | 2017-12-25 06:47 | NUR ---
REPORT TO LUZ CAO
--- NOTE | 2017-12-25 07:40 | NUR ---
ASSESSMENT COMPLETED. PATIENT LYING IN BED GROANING C/O PAIN IN ABDOMEN. DESCRIBES PAIN CRAMPING AND ACHING. STATES "I JUST DONT UNDERSTAND WHY MY BOWELS WONT MOVE." SMELL OF STOOL PRESENT. PATIENT DENIES PASSING GAS. BOWEL SOUNDS HYPO. ABDOMEN DISTENDED AND SEMI FIRM. PATIENT VOMITED X1 SLIGHTLY PINK TINGED EMESIS APPROXIMATELY 60CC. RESPIRATIONS UNLABORED WITH 02 @ 2L/NC. HEART REGULAR AND 105-106. PULSES STRONG. BP 160/91. EMOTIONAL SUPPORT GIVEN. SR UP X2. CALL LIGHT WITHIN REACH. IV PATENT WITHOUT S/S INFILTRATION. RED SOCKS ON. PATIENT WITH FALL AT HOME OVER A WEEK AGO. GREENISH BRUISES PRESENT ON RIGHT SHOULDER AREA OF BACK.
--- NOTE | 2017-12-25 08:30 | NUR ---
PATIENT REPORTS PAIN CONTINUES. GROANING AND MOANING. CT SCAN REVIEWED AND REVEALS NO BLOCKAGE. PATIENT HAS HAD ONE EPISODE OF EMESIS BUT NONE SINCE. EMOTIONAL SUPPORT GIVEN. SR UP X2. CALL LIGHT WITHIN REACH.
--- NOTE | 2017-12-25 09:24 | NUR ---
PATIENT CONTINUES TO LIE IN BED AND GROAN AT INTERVALS DUE TO PAIN. EYES CLOSED. SKIN WARM AND DRY. RESPIRATIONS UNLABORED. SR UP X2. CALL LIGHT WITHIN REACH.
[2017-12-25] MEDS: SENOKOT PO SCH ×2 (09:30→20:51)
[2017-12-25] MEDS ORDERED: VENTOLIN IH SCH (09:30)
[2017-12-25] MEDS ORDERED: SOLU-MEDROL ONE (09:33)
[2017-12-25] MEDS ORDERED: PERI-COLACE TABLET PO ONE (09:51)
[2017-12-25] MEDS ORDERED: VENTOLIN IH ONE (09:52)
--- NOTE | 2017-12-25 09:53 | NUR ---
AT BEDSIDE. UPSET RE: PATIENT CONTINUING TO HURT AND NOT HAVING BOWEL MOVEMENT. ENCOURAGED MD WILL SEE PATIENT. DR SEARS AT BEDSIDE. DISCUSSED PATIENT CONSTIPATION ISSUES AND PLAN OF TREATMENT. PLAN FOR SUPPOSITORIES, LAXATIVES AND IF NO BOWEL MOVEMENT WILL ADMINISTER ENEMAS. IN AGREEMENT WITH PLAN OF CARE.
[2017-12-25] MEDS: BISAC-EVAC RC SCH ×2 (09:56→12:22)
[2017-12-25] MEDS: NEURONTIN PO SCH (09:56)
[2017-12-25] MEDS: COLACE PO SCH ×2 (09:56→20:50)
[2017-12-25] MEDS ORDERED: FLEET ENEMA RC ONE (10:00)
--- NOTE | 2017-12-25 10:00 | NUR ---
DR SEARS REPORTS TO GIVE PATIENT THE 2 SUPPOSITORIES ORDERED AND WAIT APPROX 1 HOUR AFTER SECOND ONE AND IF NO RESULTS THEN GIVE FLEETS ENEMA. ENEMA ORDERED FOR 10 AM.
--- NOTE | 2017-12-25 10:40 | NUR ---
DISCHARGE PLANNING CM VISITED WITH PATIENT AND REGARDING DISCHARGE PLAN AND NEEDS. PATIENT LIVES AT HOME WITH HER . SHE IS INDEPENDENT WITH ALL ADL'S. DME IN PLACE INCLUDING A WALKER, SHOWER CHAIR, AND HOME OXYGEN SET UP THROUGH [employer]. DISCUSSED BENEFITS OF HOME HEALTH WITH PATIENT AND , THEY REFUSE HOME HEALTH AT THIS TIME. DISCHARGE GOAL IS TO DISCHARGE HOME WITH HER . CM DEPT WILL CONTINUE TO MONITOR DISCHARGE NEEDS.
[2017-12-25 11:13] LABS: BASOPHIL % 0.3 % (0.0-0.2); EOSINOPHIL # 0.5 10^3/uL (0.0-0.2); EOSINOPHIL % 4.2 % (0.0-5.0); HEMOGLOBIN 13.9 g/dL (12.0-15.0); LYMPHOCYTES # 0.9 10^3/uL (1.0-4.8); LYMPHOCYTES % 7.3 % (24.0-44.0); MEAN CELL HGB 24.4 pg (26-34); MEAN CORP VOLUME 78.9 fL (78-100); MONOCYTES # 1.1 10^3/uL (0.3-0.8); MONOCYTES % 8.8 % (5.0-12.0); NEUTROPHIL # 10.1 10^3/uL (1.8-7.7); NEUTROPHILS % 79.2 % (41.0-85.0); RED CELL DISTRIBUTION WIDTH 18.6 % (11.5-14.5); WHITE BLOOD CELL 12.8 10^3/uL (4.5-11.0)
[2017-12-25] MEDS: REGLAN IV SCH ×3 (11:15→17:59)
--- NOTE | 2017-12-25 11:15 | NUR ---
MEDS-REGLAN IV, LACULOSE AND TRAMADOL ADMINISTERED. INSTRUCTED PATIENT AND RE: USE OF REGLAN TO INCREASE MOTILITY OF BOWEL. PATIENT REPORTS ATTEMPTING TO HAVE BM WITHOUT SUCCESS. CONTINUING TO MONITOR PATIENT.
[2017-12-25] MEDS: CEPHULAC PO SCH ×4 (11:16→20:49)
[2017-12-25] MEDS: ULTRAM PO PRN ×2 (11:16→20:50)
--- NOTE | 2017-12-25 11:52 | HPH ---
ADMIT DATE: 12/25/2017 CHIEF COMPLAINT: Abdominal pain. HISTORY OF PRESENT ILLNESS: The patient was recently in the hospital. Please see the history and physical dictated by me dated 12/18/2017 for full details. She was discharged on 12/19/2017. She presented to ER with significant abdominal pain. She has a history of constipation, especially induced by pain medications. She primarily uses tramadol p.r.n. for pain. She had a workup in ER that revealed significant stool in the sigmoid colon and gastric distention above that. Despite all her oral medications at home, she did have continued abdominal pain and constipation. She had some nausea and vomiting due to the constipation. She reported no fever or chills. PAST MEDICAL HISTORY, PAST SURGICAL HISTORY, ALLERGIES, HOME MEDICATIONS, SOCIAL HISTORY AND FAMILY HISTORY: Per H and P dated 12/18/2017. REVIEW OF SYSTEMS: CARDIAC: Denies chest pain or shortness of breath. PULMONARY: No cough, sputum production or pleuritic chest pain. GASTROINTESTINAL: Positive for nausea, vomiting and constipation. All else negative in 10 point review of system except as in HPI. PHYSICAL EXAMINATION: VITAL SIGNS: Upon arrival to the ER, height 167.6 cm, weight 80.3 kilograms. Temperature 97.7, pulse 104, respiratory rate 16, blood pressure 180/103, O2 saturation 94% on room air. GENERAL: She is alert, in no acute distress at time of exam. HEENT: Pupils equal, round, reactive to light. Sclerae are anicteric. Oropharynx is clear. Mucous membranes are moist. NECK: Supple, no lymphadenopathy. CARDIOVASCULAR: At time of exam, was tachycardic, regular rhythm. LUNGS: Clear bilaterally with shallow inspiratory effort. ABDOMEN: Soft. Bowel sounds are present. Tender to palpation in bilateral lower quadrants. No rebound or guarding. EXTREMITIES: No cyanosis, clubbing or significant edema. NEUROLOGIC: Grossly nonfocal. LABORATORY DATA: CBC: White count 13.3, hemoglobin 14.5 and platelets 295. Differential: 70% neutrophils, 12% lymphocytes, 13% monocytes. Sodium 137, potassium 3.7, chloride 99, CO2 is 28, BUN 13, creatinine 1.03, glucose is 125, calcium is 9.2, total bilirubin 0.3, AST 23, ALT is 40, alkaline phosphatase 92, total protein 7.2, albumin 3.9, amylase 71, lipase 174, PT of 10.2, PTT 21.4. UA, pH is 7.0, specific gravity is 1.010. all else is negative. IMAGING STUDIES: Done in the Emergency Room including abdominal pelvis CT reveals significant stool within the sigmoid colon. Multiple infiltrates in lung bases and gaseous distention of the colon above the level of sigmoid. ASSESSMENT AND PLAN: The patient is a 72-year-old woman here with an ileus and obstipation with constipation induced by opiates with bilateral atelectasis and significant abdominal pain. 1. We will go ahead and treat pain as needed. She has a significant amount of pain, asking for pain medications. 2. We will put her on IV Reglan and give numerous cathartics including suppositories and enema as needed. 3. Continue her home medications. 4. Diet as tolerated. She will be on a clear liquid diet to start and advance as tolerated. 5. DVT prophylaxis will be with SCDs. Time spent on history and physical on 12/25/2017 is 45 minutes. This plan was discussed with the patient and her . They do understand and concur. Sukhi Almaraz MD DR: MIKE/lucy JOB# [id number]
--- NOTE | 2017-12-25 12:25 | NUR ---
PATIENT RESTING WITH EYES CLOSED. OPENS EYES TO VERBAL STIMULI. REPORTS PAIN MUCH IMPROVED TO 3 ON PAIN SCALE. BISACODYL SUPPOSITORY GIVEN. PATIENT NOW ON CLEAR LIQUID DIET. PATIENT REQUESTS ICE WATER. SR UP X2. CALL LIGHT WITHIN REACH.
--- NOTE | 2017-12-25 14:36 | NUR ---
ADMINISTERED FLEETS ENEMA. PATIENT BEGAN TO SCREAM WITH CRAMPING PAIN. ASSISTED UP TO TOILET. PATIENT CRYING DUE TO CRAMPING PAIN. NO RESULTS FROM ENEMA EXCEPT CLEAR WATER. PATIENT STATES "I CANT TAKE THIS ANYMORE. WE HAVE TO DO SOMETHING ELSE." PATIENT HAS RECEIVED 2 BISACODYL SUPPOSITORIES, 2 DOSES OF LACTULOSE 10 GM EACH, 2 DOSES REGLAN 10 MG EACH, 1 SENOKOT, 1 COLACE AND A FLEETS ENEMA THIS SHIFT WITHOUT RESULTS. ABDOMEN EXTREMELY DISTENDED. PATIENT STATES "I THINK I AM GOING TO BURST." NOTIFIED.
[2017-12-25] MEDS ORDERED: MOVIPREP POWDER PACKET PO STA (14:55)
--- NOTE | 2017-12-25 15:00 | NUR ---
DR SEARS NOTIFIED OF PATIENT INABILITY TO TOLERATE ENEMA AND CRYING AND SCREAMING AFTER ENEMA ADMINISTERED. PATIENT UP TO COMMODE WITH ONLY CLEAR WATER RESULTS. ABDOMEN VERY DISTENDED. REVIEWED ALL MEDS PATIENT HAS HAD TODAY. DR SEARS STATES HE PLANS TO CONSULT DR WADE, SURGEON AND WILL ORDER MOVIE PREP. PATIENT MAY SIP ON MOVIE PREP AND TAKE LONG IT TAKES TO GET IT DOWN. WILL TAKE A WHILE FOR MEDS TO TAKE EFFECT DUE TO STOOL IS HIGH UP IN SIGMOID COLON. STATED TO MEDICATE PATIENT WITH FENTANYL FOR PAIN. WILL HAVE TO TREAT PAIN AND TREAT CONSTIPATION. PATIENT INSTRUCTED RE: PLAN.
--- NOTE | 2017-12-25 15:01 | NUR ---
FENTANYL 50MCG IV ADMINISTERED. BENADRYL 25 MG ADMINISTERED DUE TO PATIENT WITH RECURRENT ADVERSE REACTIONS TO FENTANYL. PATIENT RESTING IN BED. INSTRUCTED TO USE CALL LIGHT IF NEED TO GET UP. AT BEDSIDE.
--- NOTE | 2017-12-25 16:10 | NUR ---
PATIENT RESTING IN BED. STATES "THE PAIN MED IS HELPING." STATES PAIN IS 4 ON PAIN SCALE. SR UP X2. CALL LIGHT WITHIN REACH. IV PATENT WITHOUT S/S INFILTRATION.
--- NOTE | 2017-12-25 17:17 | DIREP ---
PROCEDURE:XRAY ABDOMEN SINGLE VW COMPARISON:[facility], CT, CT ABD/PELVIS W/ CONTRAST, 12/24/2017, 11:00 PM. [facility], CR, XRAY ABDOMEN SINGLE VW, 12/24/2017, 09:07 PM. INDICATIONS:Cecal Dilation FINDINGS: BOWEL GAS PATTERN:Gaseous distention of the cecum, not significantly changed. Interval CT without cecal bascule / volvulus although the cecum does folded anteriorly over the ascending colon. There is gas seen in the more distal colon. CALCIFICATIONS:None significant. LUNG BASES:Not included on this single view. BONES:Normal. OTHER:No additional findings. CONCLUSION: Gaseous distension of the cecum, not significantly changed. There is still gas seen within the more distal colon. Dictated by: Mary Ramirez MD on 12/25/2017 at 05:11 PM
--- NOTE | 2017-12-25 17:45 | NUR ---
ADMINISTERED SOAP SUDS ENEMA. USED WISE FLUSH. PATIENT ABLE TO RID SOME GAS. NO SIGNS OF BM EXCEPT BROWN SPECKS IN FLUID. PATIENT CRYING WITH PAIN INTERMITTENTLY DURING PROCESS. UNABLE TO RETAIN FLUID AT TIMES. ASSISTED UP TO BSC AND FLUID RETURNED SAME FLUID GOING IN EXCEPT 2-3 PEA SIZE BROWN SPECKS. PATIENT REMAINS IN SEVERE ABDOMINAL PAIN. VOMITING INTERMITTENTLY YELLOWISH AND BROWN EMESIS THROUGHOUT PROCESS OF ENEMA ADMINISTRATION.
--- NOTE | 2017-12-25 18:30 | NUR ---
PATIENT EXHAUSTED FROM ENEMA ADMINISTRATION. ASSISTED BACK INTO BED. SR UPX2. EMOTIONALLY AND PHYSICALLY EXHAUSTED. CONTINUES TO EXPERIENCE SEVERE PAIN CRAMPING AND THROBBING ACROSS ABDOMEN.
--- NOTE | 2017-12-25 19:00 | NUR ---
Report Received report from Emilie Holliday RN
--- NOTE | 2017-12-25 19:30 | NUR ---
Patient resting in bed with eyes open. at bedside . Abdomen distended and tender to touch. Patient moaning out in pain and discomfort. Will continue to monitor. Call light within reach.
[2017-12-25] MEDS: VENTOLIN IH SCH (20:31)
[2017-12-25] MEDS ORDERED: ZOCOR PO SCH (21:00)
[2017-12-25] MEDS ORDERED: TOPROL XL PO SCH (21:00)
--- NOTE | 2017-12-25 22:30 | NUR ---
Notified Dr Guido of patient vomiting and patient c/o of pain and now BM inspite of meds given . New orders given to place NG Tube.
--- NOTE | 2017-12-25 23:00 | NUR ---
NG Tube Placed. Dr Guido at bedside.
[2017-12-25 23:12] LABS: ABG PCO2 43.2 mmHg (35.0-45.0); ABG PH 7.341 (7.350-7.450); BE(B) -2.9 mmol/L (-2.0-2.0); HCO3act 22.8 mmol/L (22.0-26.0); pO2 58.4 mmHg (75.0-100.0)
[2017-12-26] MEDS ORDERED: CETACAINE SPRAY TP ONE (00:02)
[2017-12-26 00:30] VITALS: BP 192/114
--- NOTE | 2017-12-26 00:36 | NUR ---
No administered 0000 meds.
--- NOTE | 2017-12-26 00:39 | NUR ---
Notified Dr Almaraz for patient BP of 192/114 and pulse of 114. New orders given labetalol 10 mg IV Q4 hr PRN for map > 100
[2017-12-26] MEDS ORDERED: TRANDATE IV ONE (00:47)
[2017-12-26] MEDS: TRANDATE IV PRN ×2 (00:55→10:20)
--- NOTE | 2017-12-26 00:55 | NUR ---
Administered 10 mg Labetalol per orders for BP 192/114 and pulse 114. Will continue to monitor. and daughter at bedside
[2017-12-26] MEDS: BENADRYL PO PRN ×2 (00:59→08:10)
[2017-12-26] MEDS: SUBLIMAZE IV PRN ×2 (01:00→08:07)
--- NOTE | 2017-12-26 01:20 | DIREP ---
PROCEDURE:CHEST 1 VIEW COMPARISON:[facility], CR, XRAY CHEST SINGLE VW, 12/18/2017, 02:09 AM. INDICATIONS:NGT placement FINDINGS: LUNGS/PLEURA:Streaky atelectasis present in the left lung base. Interstitial scarring noted in the lungs. No focal consolidation, pleural effusion or pneumothorax. VASCULATURE:Normal. Unremarkable pulmonary vasculature. CARDIAC:Normal. No cardiac silhouette abnormality or cardiomegaly. MEDIASTINUM:Atherosclerotic aorta with no visible aneurysm. BONES:Bilateral shoulder girdle osteoarthritis. OTHER:Nasogastric tube appears subdiaphragmatic. Large amount of gas distended bowel partially visualized. CONCLUSION: 1. Nasogastric tube subdiaphragmatic, possibly within the gastric fundus. Extensive gas-filled bowel partially visualized. 2. Subsegmental atelectasis left lung base. Dictated by: Morales Denson M.D. on 12/26/2017 at 01:17 AM
[2017-12-26] MEDS: ROCEPHIN 1,000 MG in NS 100ML 100 ML IV SCH (01:22)
[2017-12-26 03:45] VITALS: BP 187/101
--- NOTE | 2017-12-26 03:48 | NUR ---
Patient resting in bed with eyes closed. Resp even and non labored. Nasal canula in place. No s/s of distress noted at this time. Will continue to monitor. Call light within reach.
[2017-12-26] MEDS: CEPHULAC PO SCH ×4 (04:00→08:00)
--- NOTE | 2017-12-26 04:02 | NUR ---
Notified Dr Almaraz of patient BP 188/108 MAP 146. Left message. No new orders given at this time
[2017-12-26] MEDS: NS 1000ML 1,000 ML SCH (04:07)
--- NOTE | 2017-12-26 04:21 | NUR ---
Patient refused 0400 lactulose. Patient states " its not working and I just cant do it anymore"
--- NOTE | 2017-12-26 04:30 | NUR ---
Called to patient room by daughter. Patient noted with moderate amount of emesis. clean gown provided.
--- NOTE | 2017-12-26 04:41 | NUR ---
this shift at 2229 Dr. Guido was notified by Anabelle Licea LVN , of patient vomiting increasing pain , orders received , Ngt placed by myself 16 qa to right nares , felt resistant Dr Guido here at 2300 patient Ngt readjusted by Doctor with Xray at bedside , placed to LIS , He than gave patient a high low enema with flatus results , patient with impaction that he removed , family was called of patient update at her request , and is here now, Dr Guido has update patient and of plan of care ,
--- NOTE | 2017-12-26 05:16 | NUR ---
mayela flush ( high low enema ) given as instructed by Dr Guido , return of moderate flatus , with very scant amount of stool , patient with cramping upper abdominal area , otherwise tolerated well , up to bathroom awaiting results at this time
[2017-12-26 05:23] LABS: BASOPHIL % 0.2 % (0.0-0.2); EOSINOPHIL # 0.1 10^3/uL (0.0-0.2); EOSINOPHIL % 0.6 % (0.0-5.0); HEMOGLOBIN 14.3 g/dL (12.0-15.0); LYMPHOCYTES # 0.7 10^3/uL (1.0-4.8); LYMPHOCYTES % 4.6 % (24.0-44.0); MEAN CELL HGB 24.7 pg (26-34); MEAN CELL HGB CONCENTRATION 31.3 g/dL (33-37); MEAN CORP VOLUME 78.8 fL (78-100); MEAN PLATELET VOLUME 10.7 fL (7.8-11.0); MONOCYTES # 1.1 10^3/uL (0.3-0.8); MONOCYTES % 7.2 % (5.0-12.0); NEUTROPHIL # 13.8 10^3/uL (1.8-7.7); NEUTROPHILS % 87.2 % (41.0-85.0); RED CELL DISTRIBUTION WIDTH 18.8 % (11.5-14.5); WHITE BLOOD CELL 15.8 10^3/uL (4.5-11.0)
[2017-12-26] MEDS: REGLAN IV SCH ×2 (05:24)
[2017-12-26 05:37] LABS: CALCIUM 8.5 mg/dL (8.4-10.5); CARBON DIOXIDE 22.9 mmol/L (20.0-32)
[2017-12-26 05:59] LABS: BASOPHIL 1 % (0-2); EOSINOPHIL 1 % (1-4); LYMPHOCYTE 2 % (25-36); MONOCYTE 9 % (3-9); SEGMENTED NEUTROPHILS 87 % (31-76)
--- NOTE | 2017-12-26 07:00 | NUR ---
Report Report given to ZOHAIB Rivers/ Rahul Zhang RN
--- NOTE | 2017-12-26 07:29 | NUR ---
REPORT RECEIVED REPORT FROM CO FOUNDER AND DIRECTOR
[2017-12-26] MEDS ORDERED: NS 1000 ML/KCL 40MEQ 1,000 ML IV SCH (07:30)
--- NOTE | 2017-12-26 07:30 | NUR ---
REPORT RECEIVED REPORT FROM JAILKEEPER
[2017-12-26 08:18] VITALS: BP 108/71
[2017-12-26] MEDS: NEURONTIN PO SCH (08:22)
[2017-12-26] MEDS ORDERED: CELEXA PO SCH (09:00)
[2017-12-26] MEDS ORDERED: ZESTRIL PO SCH (09:00)
[2017-12-26] MEDS ORDERED: PROTONIX PO SCH (09:00)
[2017-12-26] MEDS ORDERED: PROTONIX IV IV SCH (09:00)
[2017-12-26] MEDS: VENTOLIN IH SCH (09:00)
[2017-12-26] MEDS ORDERED: PROCARDIA PO SCH (09:00)
[2017-12-26] MEDS ORDERED: PREDNISONE PO SCH (09:00)
[2017-12-26] MEDS ORDERED: ASPIRIN PO SCH (09:00)
--- NOTE | 2017-12-26 10:02 | NUR ---
TRANSFER/DISCHARGE PT IS BEING TRANSFERED TO [facility]
[2017-12-26 10:51] VITALS: BP 108/71
--- NOTE | 2017-12-26 10:51 | NUR ---
TRANSFERRED PT HAS BEEN TRANSFERRED BY EMS TO [facility]. 20MG OF TRANDATE GIVEN PRIOR TO TRANSFER DUE TO BP ELEVATION. PT LEAVES WITH NG TUBE AND IV INTACT. REPORT GIVEN TO EMS AT THIS TIME.
--- NOTE | 2017-12-26 10:54 | NUR ---
REPORT GIVEN TO SON CAO AT [facility]
--- NOTE | 2017-12-26 11:23 | CNH ---
DATE OF CONSULTATION: CHIEF COMPLAINT: Constipation and dilated colon. HISTORY OF PRESENT ILLNESS: This is a 72-year-old female who was apparently admitted to the hospital recently. She had a history of abdominal pain and chronic constipation that has become more severe in the last 10 days. She is noted to have colon and gastric distention on admission. She was decompressed with NG tube and has had a catharsis ordered from oral and anal routes both previously. She does report at time of my assessment, she has abdominal pain which is more in the mid abdomen on the right side. She denies any nausea or vomiting today. She has been started on clear liquids. She reports she has had minimal stool output with attempts at catharsis at this point. PAST MEDICAL HISTORY: She reports rheumatoid arthritis, COPD, hypertension and cardiac disease. She has apparently had previous DC and stroke. PAST SURGICAL HISTORY: She reports x 2, total abdominal hysterectomy and previous tubal ligation. ALLERGIES: CODEINE, MORPHINE, SULFA. HOME MEDOCATIONS: Per list. INPATIENT MEDICATIONS: Per NOV. SOCIAL HISTORY: Positive for smoke tobacco. She denies alcohol. FAMILY HISTORY: Noncontributory. REVIEW OF SYSTEMS: CONSTITUTIONAL: She does not report any fever, chills or weakness to me. ENDOCRINE: She does not report diabetes to me or known thyroid disease. CARDIOVASCULAR: No chest pain, trouble breathing at this time. PULMONARY: No dyspnea or cough. She is known to have chronic COPD that is exacerbated by her smoking history. ABDOMEN: As per HPI. MUSCULOSKELETAL: She has chronic symptoms associated with rheumatoid arthritis. PHYSICAL EXAMINATION: VITAL SIGNS: Afebrile female. Last temperature is 98.3, pulse 108, blood pressure 146/85, respiratory rate of 18. HEENT: Normocephalic, atraumatic with chronic changes. NECK: Supple and soft. Trachea is midline. No JVD or thyromegaly. HEART: Has regular rate and rhythm. LUNGS: Clear anteriorly bilaterally. ABDOMEN: The bowel sounds are positive. It is noticeably distended. She has tenderness in the mid abdomen on the right side consistent with colonic dilatation. EXTREMITIES: Have chronic changes. She has positive radial pulses and dorsal pedal pulses bilaterally. NEUROLOGIC: She has no acute finding. SKIN AND INTEGUMENTARY: Warm and dry. LABORATORY STUDIES: On admission, WBC was 13.3, it is improved to 12.8, hemoglobin 13.9, platelet count 266. Last chemistry shows BUN 13, creatinine 1.03. 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 ASSESSMENT: 1. Colonic dilation. 2. Chronic constipation. 3. COPD. 4. Rheumatoid arthritis with sequelae. PLAN: 1. The patient is seen and examined, briefly. Chart is reviewed. 2. Old chart noted she had a history of duodenitis, likely associated with medications for her rheumatoid. 3. We will try to gentle catharsis rom below and we will decompress her colon; however, she may require decompressive colonoscopy or surgical intervention If she does improve appropriately with medical management. Festus Guido DO DR: BISMARK/lucy JOB# [id number] CC: Sukhi Worley MD MTDD
--- NOTE | 2018-01-04 18:14 | DSH ---
DATE OF DISCHARGE: 12/26/2017 DISPOSITION: Discharge is transfer to higher level of care back to [facility] under accepting physician Dr. Morin. PRINCIPAL DIAGNOSIS AT DISCHARGE: Phuong syndrome. OTHER DIAGNOSES: Includes functional bowel obstruction, COPD, coronary artery disease, GERD, rheumatoid arthritis and chronic pain. BRIEF SUMMARY: The patient was initially admitted on 12/25/2017 with significant abdominal pain. Workup revealed she has significant constipation. She was given multiple enemas, multiple medications with only marginal results. General Surgery was also consulted and was following. She was given IV fluids and appropriate p.r.n. pain and nausea medications. She has multiple comorbidities including chronic pain and rheumatoid arthritis. The constipation was consistent with opiate-induced constipation. Per family request, they wanted transfer to higher level of care at [facility]. She was accepted and transferred by ambulance to [facility] under the care of Dr. Morin. Time spent on discharge is 45 minutes on 12/26/2017. This plan was discussed with the patient. She is her own decision maker. She does understand and concur with plans. Sukhi Almaraz MD DR: MIKE/lucy JOB# [id number]
== END 2017-12-26 10:35 | disposition short-term general hospital (02) ==
LOC: EDBD 20:34 → ER 20:34 → MS 12-25 00:54 → EDPENDDISTM 12-26 10:51 → EDPENDDISDT 12-26 10:51
PROVIDERS: ADMIT Internal Medicine; ATTEND Internal Medicine
DX: K59.03 Drug induced constipation (principal); T40.605A Adverse effect of unspecified narcotics, initial encounter; J98.11 Atelectasis; K56.699 Other intestinal obstruction unspecified as to partial versus complete obstruction; I10 Essential (primary) hypertension; J44.9 Chronic obstructive pulmonary disease, unspecified; I25.2 Old myocardial infarction; M06.9 Rheumatoid arthritis, unspecified; Z86.73 Personal history of transient ischemic attack (TIA), and cerebral infarction without residual deficits; Z98.51 Tubal ligation status; Z90.710 Acquired absence of both cervix and uterus; F17.210 Nicotine dependence, cigarettes, uncomplicated
CPT/HCPCS: 36415 ×3; 36600; 71045; 74018 ×2; 74177; 80053 ×2; 81002; 82150; 82803; 83690; 85025 ×3; 85610; 85730; 87040 ×2; 96361 ×4; 96365; 96366; 96375 ×3; 96376 ×3; 99285; C9113; G0378 ×34; J0696 ×2; J1200; J1885; J2405; J2765 ×4; J2920; J3010 ×5; J7030 ×5; J7050 ×2; Q0163 ×4; Q9963; Q9965; J7613; 74000; J3480; J3490; J7512

== ENCOUNTER 2018-05-28 22:49 | Emergency (ER) | payer MEDICARE, OTHER ==
[~2018-05-28] VITALS: Ht 157.5 cm; Wt 83.9 kg
[2018-05-28 23:19] VITALS: BP 162/82
--- NOTE | 2018-05-28 23:20 | NUR ---
Arrival Pt. complains of shoulder pain and neck back due to her RA. Pt is being weaned off her prednisone per pts. request due to gaining weight. Pt. believe that this is the reason the pain is so bad. Pt. is holding left arm due to pain. Pt. laying on gurney in stable condition at this time
[2018-05-28] MEDS ORDERED: BENADRYL IM STA (23:23)
[2018-05-28] MEDS ORDERED: DECADRON IM STA (23:23)
[2018-05-28] MEDS ORDERED: SUBLIMAZE IM STA (23:23)
[2018-05-28] MEDS ORDERED: BENADRYL ONE (23:33)
[2018-05-28] MEDS ORDERED: SUBLIMAZE ONE (23:33)
[2018-05-28] MEDS ORDERED: FLUT1DIS3 IH (23:33)
[2018-05-28] MEDS ORDERED: PRED2.5T PO (23:33)
[2018-05-28] MEDS ORDERED: DECADRON ONE (23:33)
[2018-05-28] MEDS ORDERED: PANT40TA5 PO (23:33)
--- NOTE | 2018-05-28 23:38 | PCM.EKG ---
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
--- NOTE | 2018-05-29 00:04 | ER.PDOC ---
General Chief Complaint: Extremities Stated Complaint: SHOULDER PAIN Time seen by MD: 23:10 Source: patient Exam Limitations: no limitations History of Present Illness Initial Comments Shoulder pain, which is chronic, has exacerbated last night and pt has not been able to control that with pain meds. Hurts to movement and palpation Occurred: last week Where: home Allergies: Coded Allergies: Sulfa (Sulfonamide Antibiotics) (Verified Allergy, Intermediate, Anaphylaxis Shock, 08/24/15) codeine (Verified Allergy, Intermediate, Nausea, 12/24/17) SEVERE PERSISTENT VOMITING fentanyl (Verified Allergy, Intermediate, Nausea, 12/24/17) SEVERE PERSISTENT VOMITING, PATIENT REFUSES TO TAKEN ANY OPIOIDS FOR PAIN morphine (Verified Allergy, Intermediate, Nausea, 12/24/17) EXTREME VOMITING Home Meds Reported Medications Fluticasone/Salmeterol (ADVAIR 250-50 DISKUS) 1 Each Disk.w.dev, 1 PUFF IH BID, #3 INHALER 3 Refills 05/28/18 Pantoprazole Sodium (PANTOPRAZOLE SODIUM) 40 Mg Tablet.dr, 1 TAB PO DAILY, #30 TAB 3 Refills 05/28/18 Prednisone (PREDNISONE) 2.5 Mg Tablet, 7.5 MG PO DAILY24, TABLET 05/28/18 Gabapentin (GABAPENTIN) 100 Mg Capsule, 1 CAP PO DAILY24, CAP 11/02/17 Albuterol Sulfate (ALBUTEROL SULFATE) 2.5 Mg/0.5 Ml Vial.neb, 1 VIAL NEB BID, VIAL 11/02/17 Docusate Sodium (COLACE) 100 Mg Capsule, 1 CAP PO BID PRN for CONSTIPATION, CAP 11/02/17 Sennosides (SENNA) 8.6 Mg Tablet, 8.6 MG PO BID, TABLET 11/02/17 Citalopram Hydrobromide (CITALOPRAM HBR) 40 Mg Tablet, 1 TAB PO DAILY, TAB 11/02/17 Lactulose (LACTULOSE) 10 Gm/15 Ml Solution, 10 GM PO DAILY 08/24/15 Nifedipine (PROCARDIA XL) 60 Mg Tab.er.24, 1 TAB PO DAILY, TAB 08/24/15 Tramadol Hcl (TRAMADOL HCL) 50 Mg Tablet, 50 MG PO Q6HR PRN for PAIN, TABLET 03/01/15 Cyclobenzaprine Hcl (FLEXERIL) 10 Mg Tablet, 5 MG PO TID PRN for PAIN, TABLET 03/01/15 Metoprolol Succinate (METOPROLOL SUCCINATE) 50 Mg Tab.er.24h, 50 MG PO HS 03/01/15 Tocilizumab (ACTEMRA) 80 Mg/4 Ml Vial, 80 MG IV EVERY 4 WEEKS, VIAL 12/30/13 Simvastatin (SIMVASTATIN) 80 Mg Tablet, 80 MG PO HS, TABLET 12/30/13 Lisinopril (LISINOPRIL) 40 Mg Tablet, 40 MG PO DAILY, TABLET 12/30/13 Aspirin (ASPIRIN) 81 Mg Tab.chew, 81 MG PO DAILY, TAB.CHEW 12/30/13 Discontinued Reported Medications Amoxicillin (AMOXICILLIN) 500 Mg Tablet, 500 MG PO BID for 2 Days, TABLET 12/25/17 Umeclidinium Brm/Vilanterol Tr (Anoro Ellipta 62.5-25 Mcg INH) 1 Each Disk.w.dev , 1 EACH IH DAILY24 12/18/17 Pantoprazole Sodium (PROTONIX) 40 Mg Tablet.dr, 1 TAB PO DAILY, TAB 11/02/17 Prednisone (PREDNISONE) 2.5 Mg Tablet, 3 TAB PO DAILY, TAB 11/02/17 Ferrous Sulfate (FERROUS SULFATE) 325 Mg Tablet.dr, 325 MG PO DAILY 08/24/15 Omeprazole (OMEPRAZOLE) 20 Mg Tablet.dr, 20 MG PO DAILY 12/30/13 Past Medical History Medical History: COPD, hypertension Surgical History: , hysterectomy, stent, tonsillectomy LMP (females 10-50): postmenopause Social History Smoking: less than 1 pack/day Alcohol Use: none Drug Use: none Review of Systems Musculoskeletal: see HPI All Other Systems: Reviewed and Negative Physical Exam General Appearance: Alert, No Apparent Distress Shoulder: nml inspection, tenderness (scapular area) Upper Extremities: uninjuried below shoulder Neuro: sensation nml, motor nml Vascular: no vascular compromise Skin: warm/dry Head/ENT: nml inspection, pharynx nml Neck/Back: non-tender, nml inspection, painless ROM Respiratory: chest non-tender, breath sounds nml CVS: reg rate & rhythm, heart sounds nml Abdomen: non-tender, no organomegaly Results/Orders Results/Orders Administered Medications Medications (Trade) Dose Ordered Sig/Tamiko Route PRN Reason Start Time Stop Time Status Last Admin Dose Admin Fentanyl Citrate (Sublimaze) 50 mcg STAT STAT IM 9/24/18 23:23 05/28/18 23:27 DC 05/28/18 23:44 Diphenhydramine HCl (Benadryl) 50 mg STAT STAT IM 05/28/18 23:23 05/28/18 23:27 DC 05/28/18 23:37 Dexamethasone Sodium Phosphate (Decadron) 4 mg STAT STAT IM 05/28/18 23:23 05/28/18 23:27 DC 05/28/18 23:37 Departure Time of Disposition: 00:19 Disposition: 01 HOME, SELF-CARE Impression: Primary Impression: Left shoulder pain Condition: Stable Patient Instructions: Shoulder Pain Referrals: FERMIN DASILVA MD (PCP) PRIMARY CARE PROVIDER Duration or Time Spent with Pa: CODEY VERA MD May 29, 2018 00:04
[2018-05-29 00:37] VITALS: BP 162/82
== END 2018-05-29 00:30 | disposition home or self-care (01) ==
LOC: ER 22:49
DX: M25.512 Pain in left shoulder (principal); F17.210 Nicotine dependence, cigarettes, uncomplicated; J44.9 Chronic obstructive pulmonary disease, unspecified; I10 Essential (primary) hypertension; Z90.710 Acquired absence of both cervix and uterus; Z90.89 Acquired absence of other organs; Z79.82 Long term (current) use of aspirin; Z79.891 Long term (current) use of opiate analgesic; Z79.899 Other long term (current) drug therapy; Z88.2 Allergy status to sulfonamides; Z88.5 Allergy status to narcotic agent; Z88.8 Allergy status to other drugs, medicaments and biological substances
CPT/HCPCS: 93005; 96372 ×3; 99284; J1100; J1200; J3010

== ENCOUNTER → 2019-05-09 | Outpatient (CLI) | payer MEDICARE, OTHER ==
[~2019-05-09] MED LIST changes: +PANT40TA5 PO; -SENN-82 PO; +SENN-83 PO; +SIMV80TA18 PO; -SIMV80TA3 PO
[2019-05-09 13:18] LABS: CALCIUM 9.3 mg/dL (8.4-10.5); CARBON DIOXIDE 25.5 mmol/L (20.0-32)
== END | disposition home or self-care (01) ==
LOC: LAB 12:33
PROVIDERS: ATTEND Internal Medicine Cardiovascular Disease
DX: I25.10 Atherosclerotic heart disease of native coronary artery without angina pectoris (principal); I10 Essential (primary) hypertension; E78.2 Mixed hyperlipidemia
CPT/HCPCS: 36415; 80053; 80061

== ENCOUNTER 2019-06-03 14:42 | Emergency (ER) | payer MEDICARE, OTHER ==
[~2019-06-03] VITALS: Ht 167.6 cm; Wt 68.5 kg
[2019-06-03 15:05] VITALS: BP 113/56
--- NOTE | 2019-06-03 15:28 | ER.PDOC ---
General Chief Complaint: Dizziness Stated Complaint: LOW BP Time seen by MD: 15:26 Source: patient Exam Limitations: no limitations History of Present Illness Initial Comments Dizziness for past few days. Severity: moderate Usually: walks w/o assistance Worsened By: nothing Allergies: Coded Allergies: Sulfa (Sulfonamide Antibiotics) (Verified Allergy, Intermediate, Anaphylaxis Shock, 08/24/15) codeine (Verified Allergy, Intermediate, Nausea, 12/24/17) SEVERE PERSISTENT VOMITING fentanyl (Verified Allergy, Intermediate, Nausea, 12/24/17) SEVERE PERSISTENT VOMITING, PATIENT REFUSES TO TAKEN ANY OPIOIDS FOR PAIN morphine (Verified Allergy, Intermediate, Nausea, 12/24/17) EXTREME VOMITING Home Meds Reported Medications Fluticasone/Salmeterol (ADVAIR 250-50 DISKUS) 1 Each Disk.w.dev, 1 PUFF IH BID, #3 INHALER 3 Refills 05/28/18 Pantoprazole Sodium (PANTOPRAZOLE SODIUM) 40 Mg Tablet.dr, 1 TAB PO DAILY, #30 TAB 3 Refills 05/28/18 Prednisone (PREDNISONE) 2.5 Mg Tablet, 7.5 MG PO DAILY24, TABLET 05/28/18 Gabapentin (GABAPENTIN) 100 Mg Capsule, 1 CAP PO DAILY24, CAP 11/02/17 Albuterol Sulfate (ALBUTEROL SULFATE) 2.5 Mg/0.5 Ml Vial.neb, 1 VIAL NEB BID, VIAL 11/02/17 Docusate Sodium (COLACE) 100 Mg Capsule, 1 CAP PO BID PRN for CONSTIPATION, CAP 11/02/17 Sennosides (SENNA) 8.6 Mg Tablet, 8.6 MG PO BID, TABLET 11/02/17 Citalopram Hydrobromide (CITALOPRAM HBR) 40 Mg Tablet, 1 TAB PO DAILY, TAB 11/02/17 Lactulose (LACTULOSE) 10 Gm/15 Ml Solution, 10 GM PO DAILY 08/24/15 Nifedipine (PROCARDIA XL) 60 Mg Tab.er.24, 1 TAB PO DAILY, TAB 08/24/15 Tramadol Hcl (TRAMADOL HCL) 50 Mg Tablet, 50 MG PO Q6HR PRN for PAIN, TABLET 03/01/15 Cyclobenzaprine Hcl (FLEXERIL) 10 Mg Tablet, 5 MG PO TID PRN for PAIN, TABLET 03/01/15 Metoprolol Succinate (METOPROLOL SUCCINATE) 50 Mg Tab.er.24h, 50 MG PO HS 03/01/15 Tocilizumab (ACTEMRA) 80 Mg/4 Ml Vial, 80 MG IV EVERY 4 WEEKS, VIAL 12/30/13 Simvastatin (SIMVASTATIN) 80 Mg Tablet, 80 MG PO HS, TABLET 12/30/13 Lisinopril (LISINOPRIL) 40 Mg Tablet, 40 MG PO DAILY, TABLET 12/30/13 Aspirin (ASPIRIN) 81 Mg Tab.chew, 81 MG PO DAILY, TAB.CHEW 12/30/13 Past Medical History Medical History: CVA/TIA/stroke, COPD, heart attack, hypertension, other Surgical History: cardiac cath, , hysterectomy, stent, tubal LMP (females 10-50): hysterectomy Social History Smoking: less than 1 pack/day Alcohol Use: none Drug Use: none Review of Systems Constitutional: no symptoms reported Ears: dizziness Mouth: no symptoms reported Throat: no symptoms reported Respiratory: no symptoms reported Cardiovascular: no symptoms reported Gastrointestinal: no symptoms reported All Other Systems: Reviewed and Negative Physical Exam General Appearance: alert, no distress Neck: supple Respiratory: no resp distress, breath sounds nml CVS: reg rate & rhythm, heart sounds.nml Abdomen: non-tender, no organomegaly, no distention Skin: color nml, no rash, warm/dry Extremities: non-tender, nml ROM, no pedal edema Neuro/Psych: nml orientation, nml speech/cognition, nml mood/affect Cranial Nerves: nml as tested, no evidence of acute CVA Sensorimotor: nml motor, nml sensation Results/Orders Results/Orders Orders - JOSE RAFAEL BEAUCHAMP MD Cbc With Auto Diff (06/03/19 15:24) Comprehensive Metabolic Panel (06/03/19 15:24) Creatine Kinase (06/03/19 15:24) Troponin I (06/03/19 15:24) Probnp B-Type [employer] (06/03/19 15:24) PT (06/03/19 15:24) Partial Thromboplastin Time. (06/03/19 15:24) Xr Chest 1v (06/03/19 15:24) Ekg-Routine (06/03/19 15:24) Ct Head Wo Contrast (06/03/19 15:24) Urinalysis (06/03/19 15:43) Ceftriaxone Sodium (Rocephin Im) (06/03/19 16:42) Vital Signs Date Time Temp Pulse Resp B/P (MAP) Pulse Ox O2 Delivery O2 Flow Rate FiO2 06/03/19 15:05 98.0 58 18 06/03/19 15:05 98.0 58 18 113/56 (75) 92 Room Air 06/03/19 14:44 98.0 58 18 92 Room Air Laboratory Tests Test 06/03/19 14:20 06/03/19 15:30 Urine Collection Type VOID Urine Color ORANGE (YELLOW) H Urine Appearance HAZY (CLEAR) H Urine Bilirubin 6 MG/DL (NEGATIVE) H Urine Ketones NEGATIVE (NEGATIVE) Urine Specific [place] 1.015 (1.005-1.035) Urine pH 6 (5.0-6.0) Urine Protein 500 mg/dL (NEGATIVE) H Urine Urobilinogen 8.0 (NEGATIVE) H Urine Nitrate POSITIVE (NEGATIVE) Urine Leukocyte Esterase 500/uL 2+ (NEGATIVE) Urine Blood 250 4+ (NEGATIVE) H Urine RBC 2-5 RBC/HPF (NONE SEEN) Urine WBC TNTC WBC/HPF (0-2) H Urine Squamous Epithelial Cells RARE #/HPF (FEW) Urine Bacteria FEW (NONE SEEN) H Urine Glucose NORMAL (NEGATIVE) White Blood Count 9.0 10^3/uL (4.5-11.0) Red Blood Count 5.07 10^6/uL (4.00-5.20) Hemoglobin 11.3 g/dL (12.0-15.0) L Hematocrit 36.2 % (36.0-46.0) Mean Corpuscular Volume 71.4 fL (78-100) L Mean Corpuscular Hemoglobin 22.3 pg (26-34) L Mean Corpuscular Hemoglobin Concent 31.2 g/dL (33-37) L Red Cell Distribution Width 20.2 % (11.5-14.5) H Platelet Count 258 10^3/uL (150-400) Mean Platelet Volume 9.6 fL (7.8-11.0) Neutrophils (%) (Auto) 77.3 % (41.0-85.0) Lymphocytes (%) (Auto) 11.2 % (24.0-44.0) L Monocytes (%) (Auto) 8.5 % (5.0-12.0) Neutrophils # (Auto) 6.9 10^3/uL (1.8-7.7) Lymphocytes # (Auto) 1.0 10^3/uL (1.0-4.8) Monocytes # (Auto) 0.8 10^3/uL (0.3-0.8) Absolute Immature Granulocyte (auto 0.01 10^3 u/L (0-2) Immature Granulocytes % 0.10 % (0.00-0.50) Eosinophils % 2.6 % (0.0-5.0) Basophils % 0.3 % (0.0-0.2) H Basophils # 0.0 10^3/uL (0.0-0.1) Eosinophil Count 0.2 10^3/uL (0.0-0.2) Prothrombin Time 9.9 SEC (9.4-11.5) Prothrombin Time INR (Non-Therap) 1.0 Activated Partial Thromboplast Time 21.9 SEC (24.67-30.72) Sodium Level 132 mmol/L (132-145) Potassium Level 4.4 mmol/L (3.6-5.2) Chloride Level 96.0 mmol/L (96-109) Carbon Dioxide Level 25.0 mmol/L (20.0-32) Anion Gap 15.4 Blood Urea Nitrogen 14 mg/dL (7-18) Creatinine 0.89 mg/dL (0.59-1.40) Estimated GFR () 75.4 (>/=60) BUN/Creatinine Ratio 15.0 Glucose Level 104 mg/dL (70-110) Calcium Level 9.3 mg/dL (8.4-10.5) Total Bilirubin 0.3 mg/dL (0.2-1.0) Aspartate Amino Transferase (AST) 17 U/L (0-35) Alanine Aminotransferase (ALT) 18 U/L (12-78) Alkaline Phosphatase 85 U/L (50-136) Total Creatine Kinase 31 U/L (26-192) Troponin I < 0.02 ng/mL (0.00-0.05) Pro-B-Type Natriuretic Peptide 379 pg/mL (0-125) H Total Protein 6.8 g/dL (6.4-8.2) Albumin 3.8 g/dL (3.4-5.0) Globulin 3.0 EKG/XRAY/CT/US EKG Comments: Normal XRAY: chest (No active disease) CT Comments: No acute intracranial abnormality Course Sepsis Screening Results: Posi: POSITIVE SEPSIS RISK Duration or Total Time Spent w: 15 Vitals & review Data Vital Sign - Last 24 Hours 06/03/19 06/03/19 06/03/19 14:44 15:05 15:05 Temp 98.0 98.0 98.0 Pulse 58 58 58 Resp 18 18 18 B/P (MAP) 113/56 (75) Pulse Ox 92 92 O2 Delivery Room Air Room Air Laboratory Tests Test 06/03/19 14:20 06/03/19 15:30 Urine Collection Type VOID Urine Color ORANGE Urine Appearance HAZY Urine Bilirubin 6 MG/DL Urine Ketones NEGATIVE Urine Specific [place] 1.015 Urine pH 6 Urine Protein 500 mg/dL Urine Urobilinogen 8.0 Urine Nitrate POSITIVE Urine Leukocyte Esterase 500/uL 2+ Urine Blood 250 4+ Urine RBC 2-5 RBC/HPF Urine WBC TNTC WBC/HPF Urine Squamous Epithelial Cells RARE #/HPF Urine Bacteria FEW Urine Glucose NORMAL White Blood Count 9.0 10^3/uL Red Blood Count 5.07 10^6/uL Hemoglobin 11.3 g/dL Hematocrit 36.2 % Mean Corpuscular Volume 71.4 fL Mean Corpuscular Hemoglobin 22.3 pg Mean Corpuscular Hemoglobin Concent 31.2 g/dL Red Cell Distribution Width 20.2 % Platelet Count 258 10^3/uL Mean Platelet Volume 9.6 fL Neutrophils (%) (Auto) 77.3 % Lymphocytes (%) (Auto) 11.2 % Monocytes (%) (Auto) 8.5 % Neutrophils # (Auto) 6.9 10^3/uL Lymphocytes # (Auto) 1.0 10^3/uL Monocytes # (Auto) 0.8 10^3/uL Absolute Immature Granulocyte (auto 0.01 10^3 u/L Immature Granulocytes % 0.10 % Eosinophils % 2.6 % Basophils % 0.3 % Basophils # 0.0 10^3/uL Eosinophil Count 0.2 10^3/uL Prothrombin Time 9.9 SEC Prothrombin Time INR (Non-Therap) 1.0 Activated Partial Thromboplast Time 21.9 SEC Sodium Level 132 mmol/L Potassium Level 4.4 mmol/L Chloride Level 96.0 mmol/L Carbon Dioxide Level 25.0 mmol/L Anion Gap 15.4 Blood Urea Nitrogen 14 mg/dL Creatinine 0.89 mg/dL Estimated GFR () 75.4 BUN/Creatinine Ratio 15.0 Glucose Level 104 mg/dL Calcium Level 9.3 mg/dL Total Bilirubin 0.3 mg/dL Aspartate Amino Transf (AST/SGOT) 17 U/L Alanine Aminotransferase (ALT/SGPT) 18 U/L Alkaline Phosphatase 85 U/L Total Creatine Kinase 31 U/L Troponin I < 0.02 ng/mL Pro-B-Type Natriuretic Peptide 379 pg/mL Total Protein 6.8 g/dL Albumin 3.8 g/dL Globulin 3.0 Sepsis Infection Criteria Pres: Documented Infection O2 Sat by Pulse Oximetry: 92 Departure Time of Disposition: 16:46 Disposition: 01 HOME, SELF-CARE Impression: Primary Impression: UTI (urinary tract infection) Additional Impression: Dizziness and giddiness Condition: Stable Referrals: FERMIN DASILVA MD (PCP) PRIMARY CARE PROVIDER Additional Instructions: Macrobid F/U with your PCP in 3-5 days Duration or Time Spent with Pa: 60 mins Problem Qualifiers Primary Impression: UTI (urinary tract infection) Urinary tract infection type: site unspecified Hematuria presence: with hematuria Qualified Codes: N39.0 - Urinary tract infection, site not specified; R31.9 - Hematuria, unspecified JOSE RAFAEL BEAUCHAMP MD Jun 03, 2019 15:28
[2019-06-03 15:37] LABS: BASOPHIL % 0.3 % (0.0-0.2); EOSINOPHIL # 0.2 10^3/uL (0.0-0.2); EOSINOPHIL % 2.6 % (0.0-5.0); HEMOGLOBIN 11.3 g/dL (12.0-15.0); LYMPHOCYTES % 11.2 % (24.0-44.0); MEAN CELL HGB 22.3 pg (26-34); MEAN CELL HGB CONCENTRATION 31.2 g/dL (33-37); MEAN CORP VOLUME 71.4 fL (78-100); MEAN PLATELET VOLUME 9.6 fL (7.8-11.0); MONOCYTES # 0.8 10^3/uL (0.3-0.8); MONOCYTES % 8.5 % (5.0-12.0); NEUTROPHIL # 6.9 10^3/uL (1.8-7.7); NEUTROPHILS % 77.3 % (41.0-85.0); PLATELET COUNT 258 10^3/uL (150-400); RED CELL DISTRIBUTION WIDTH 20.2 % (11.5-14.5)
[2019-06-03 15:49] LABS: BILIRUBIN,URINE 6 MG/DL (NEGATIVE)
--- NOTE | 2019-06-03 15:52 | DIREP ---
PROCEDURE:CT HEAD OR BRAIN W/O CONTRAST COMPARISON:[facility], CT, CT HEAD BRAIN W/O CONTRAST, 12/18/2017, 02:17 AM. INDICATIONS:Dizziness TECHNIQUE:CT images were created without intravenous contrast. FINDINGS: VENTRICLES:The ventricles are normal in size and configuration. CEREBRUM:Small foci of diminished attenuation in the supratentorial white matter consistent with mild leukoaraiosis. CEREBELLUM:Negative. BRAINSTEM:Negative. BASAL CISTERNS:Negative. HEMORRHAGE:No MASS LESION:No ACUTE INFARCT:No SKULL:Surgical changes are again seen to the left mastoid/temporal bone. Mild adjacent left mastoid air cell fluid. SINUSES:Normal. OTHER:None CONCLUSION:1. Mild chronic small vessel ischemic change without acute intracranial process. 2. Stable left mastoid surgical change. Dictated by: Nataliia Alberto M.D. on 06/03/2019 at 03:48 PM
--- NOTE | 2019-06-03 15:57 | DIREP ---
PROCEDURE:CHEST 1 VIEW COMPARISON:[facility], CHEST 1 VIEW, 02/08/2019, 11:[address] [facility], SID, XRAY CHEST SINGLE VW, 12/25/2017, 11:[address] [facility], SID, XRAY CHEST SINGLE VW, 12/18/2017, 02:09 AM. INDICATIONS:Dizziness FINDINGS: LUNGS/PLEURA:No significant pulmonary parenchymal abnormalities. No effusions. VASCULATURE:Normal. Unremarkable pulmonary vasculature. CARDIAC:The cardiac silhouette is normal in size. The aorta is calcified and tortuous. MEDIASTINUM:Normal. No visible mass or adenopathy. BONES:Severe degenerative changes about the right shoulder, with elevation of the humeral head likely represent sequela of rotator cuff tear. OTHER:Negative. CONCLUSION:1. No acute pulmonary process. 2. Extensive right shoulder degenerative change. Dictated by: Nataliia Alberto M.D. on 06/03/2019 at 03:51 PM
[2019-06-03 16:01] LABS: ALANINE AMINOTRANSFERASE(ML) 18 U/L (12-78); ALKALINE PHOSPHATASE 85 U/L (50-136); ASPARTATE AMINO TRANSFERASE 17 U/L (0-35); CALCIUM 9.3 mg/dL (8.4-10.5); GLUCOSE 104 mg/dL (70-110)
[2019-06-03 16:05] VITALS: BP 119/59
[2019-06-03 16:07] LABS: APPEARANCE,URINE HAZY (CLEAR); UA COLOR ORANGE (YELLOW)
--- NOTE | 2019-06-03 16:22 | PCM.EKG ---
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
[2019-06-03] MEDS ORDERED: ROCEPHIN IM IM STA (16:42)
[2019-06-03] MEDS ORDERED: ROCEPHIN ONE (16:54)
[2019-06-03 17:00] VITALS: BP 113/58
== END 2019-06-03 17:27 | disposition home or self-care (01) ==
LOC: ER 14:42
DX: N39.0 Urinary tract infection, site not specified (principal); I10 Essential (primary) hypertension; R79.1 Abnormal coagulation profile; F17.210 Nicotine dependence, cigarettes, uncomplicated; J44.9 Chronic obstructive pulmonary disease, unspecified; I25.2 Old myocardial infarction; Z79.82 Long term (current) use of aspirin; Z79.899 Other long term (current) drug therapy; Z86.73 Personal history of transient ischemic attack (TIA), and cerebral infarction without residual deficits; Z88.5 Allergy status to narcotic agent; Z88.2 Allergy status to sulfonamides; Z90.710 Acquired absence of both cervix and uterus
CPT/HCPCS: 36415; 70450; 71045; 80053; 81000; 82550; 83880; 84484; 85025; 85610; 85730; 93005; 96372; 99285; J0696

== ENCOUNTER → 2019-06-03 | Outpatient (CLI) | payer MEDICARE, OTHER ==
[~2019-06-03] MED LIST changes: +LACT10SO PO; -LACT10SO5 PO
== END | disposition home or self-care (01) ==
LOC: NPLAB 16:08
PROVIDERS: ATTEND Nurse Practitioner
DX: R30.0 Dysuria (principal)
CPT/HCPCS: 87077; 87086; 87186

== ENCOUNTER → 2019-08-26 | Outpatient (CLI) | payer MEDICARE, OTHER | END | disposition home or self-care (01) | LOC: NPLAB 16:13 | PROVIDERS: ATTEND Nurse Practitioner | DX: N39.0 Urinary tract infection, site not specified (principal) | CPT/HCPCS: 87077; 87086; 87186 ==

== ENCOUNTER 2019-09-01 18:58 | Emergency (ER) | payer MEDICARE, OTHER ==
[~2019-09-01] VITALS: Ht 167.6 cm; Wt 68.0 kg
[2019-09-01 18:58] VITALS: BP 141/70
[2019-09-01] MEDS ORDERED: PREDNISONE PO STA (19:02)
--- NOTE | 2019-09-01 19:07 | ER.PDOC ---
General Chief Complaint: Requesting Medical Care Stated Complaint: RT HIP PAIN Time seen by MD: 18:55 Source: patient, EMS Exam Limitations: no limitations History of Present Illness Initial Comments c/o arthritis pain flare right hip; denies any injury or fever Onset: this afternoon Recent Injury: No Context: longstanding hx arthritis with occasional flar Where: home Severity: severe Exacerbated By: walking movement Relieved By: nothing Allergies: Coded Allergies: Sulfa (Sulfonamide Antibiotics) (Verified Allergy, Intermediate, Anaphylaxis Shock, 08/24/15) codeine (Verified Allergy, Intermediate, Nausea, 12/24/17) SEVERE PERSISTENT VOMITING fentanyl (Verified Allergy, Intermediate, Nausea, 12/24/17) SEVERE PERSISTENT VOMITING, PATIENT REFUSES TO TAKEN ANY OPIOIDS FOR PAIN morphine (Verified Allergy, Intermediate, Nausea, 12/24/17) EXTREME VOMITING Home Meds Reported Medications Fluticasone/Salmeterol (ADVAIR 250-50 DISKUS) 1 Each Disk.w.dev, 1 PUFF IH BID, #3 INHALER 3 Refills 05/28/18 Pantoprazole Sodium (PANTOPRAZOLE SODIUM) 40 Mg Tablet.dr, 1 TAB PO DAILY, #30 TAB 3 Refills 05/28/18 Prednisone (PREDNISONE) 2.5 Mg Tablet, 7.5 MG PO DAILY24, TABLET 05/28/18 Gabapentin (GABAPENTIN) 100 Mg Capsule, 1 CAP PO DAILY24, CAP 11/02/17 Albuterol Sulfate (ALBUTEROL SULFATE) 2.5 Mg/0.5 Ml Vial.neb, 1 VIAL NEB BID, VIAL 11/02/17 Docusate Sodium (COLACE) 100 Mg Capsule, 1 CAP PO BID PRN for CONSTIPATION, CAP 11/02/17 Sennosides (SENNA) 8.6 Mg Tablet, 8.6 MG PO BID, TABLET 11/02/17 Citalopram Hydrobromide (CITALOPRAM HBR) 40 Mg Tablet, 1 TAB PO DAILY, TAB 11/02/17 Lactulose (LACTULOSE) 10 Gm/15 Ml Solution, 10 GM PO DAILY 08/24/15 Nifedipine (PROCARDIA XL) 60 Mg Tab.er.24, 1 TAB PO DAILY, TAB 08/24/15 Tramadol Hcl (TRAMADOL HCL) 50 Mg Tablet, 50 MG PO Q6HR PRN for PAIN, TABLET 03/01/15 Cyclobenzaprine Hcl (FLEXERIL) 10 Mg Tablet, 5 MG PO TID PRN for PAIN, TABLET 03/01/15 Metoprolol Succinate (METOPROLOL SUCCINATE) 50 Mg Tab.er.24h, 50 MG PO HS 03/01/15 Tocilizumab (ACTEMRA) 80 Mg/4 Ml Vial, 80 MG IV EVERY 4 WEEKS, VIAL 12/30/13 Simvastatin (SIMVASTATIN) 80 Mg Tablet, 80 MG PO HS, TABLET 12/30/13 Lisinopril (LISINOPRIL) 40 Mg Tablet, 40 MG PO DAILY, TABLET 12/30/13 Aspirin (ASPIRIN) 81 Mg Tab.chew, 81 MG PO DAILY, TAB.CHEW 12/30/13 Past Medical History Medical History: other (rheumatoid arthritis) Surgical History: cardiac cath, angioplasty (with stent placement) Review of Systems Constitutional: no symptoms reported EENTM: no symptoms reported Respiratory: no symptoms reported Cardiovascular: no symptoms reported Gastrointestinal: no symptoms reported Genitourinary: no symptoms reported Musculoskeletal: see HPI Skin: no symptoms reported Psychiatric/Neurological: no symptoms reported Physical Exam General Appearance: Alert, Moderate Distress (patient appears to be suffering from pain) Lower Extremity: tenderness (right hip; no erythema or warmth) Joint Exam: limited ROM by pain (right hip) Vascular: no vascular compromise Neuro/Psych: oriented x3 Skin: color nml, warm/dry Respiratory: no resp distress, breath sounds nml CVS: reg rate & rhythm, heart sounds nml Abdomen: non-tender Results/Orders Results/Orders Orders - AUSTIN ABREU DO Fentanyl Citrate/Pf (Sublimaze) (09/01/19 19:30) Ondansetron Hcl/Pf (Zofran 4 Mg/2 Ml Via (09/01/19 19:30) Prednisone (Prednisone) (09/01/19 19:02) Ondansetron Hcl/Pf (Zofran 4 Mg/2 Ml Via (09/01/19 20:03) Fentanyl Citrate/Pf (Sublimaze) (09/01/19 20:03) Administered Medications Medications (Trade) Dose Ordered Sig/Tamiko Route PRN Reason Start Time Stop Time Status Last Admin Dose Admin Prednisone (Prednisone) 40 mg STAT STAT PO 09/01/19 19:02 09/01/19 19:05 DC 09/01/19 19:15 40 MG Progress Progress good relief with fentanyl IV; patient missed her RA infusion this past monday Departure Time of Disposition: 20:41 Disposition: 01 HOME, SELF-CARE Impression: Primary Impression: Rheumatoid arthritis flare Condition: Improved Patient Instructions: Rheumatoid Arthritis Additional Instructions: Return to ER if joint becomes red/hot, pain escalates, or for any other concerns Duration or Time Spent with Pa: 2 hours AUSTIN ABREU DO Sep 01, 2019 19:07
[2019-09-01] MEDS ORDERED: PREDNISONE ONE (19:13)
[2019-09-01] MEDS ORDERED: ZOFRAN 4 MG/2 ML VIAL IV ONE (19:30)
[2019-09-01] MEDS ORDERED: SUBLIMAZE IV ONE (19:30)
[2019-09-01] MEDS ORDERED: ZOFRAN 4 MG/2 ML VIAL ONE (20:03)
[2019-09-01] MEDS ORDERED: SUBLIMAZE ONE (20:03)
[2019-09-01 20:50] VITALS: BP 140/66
== END 2019-09-01 20:57 | disposition home or self-care (01) ==
LOC: EDBD 18:58 → ER 18:58
DX: M06.9 Rheumatoid arthritis, unspecified (principal); Z79.82 Long term (current) use of aspirin; Z79.899 Other long term (current) drug therapy; Z88.2 Allergy status to sulfonamides; Z88.5 Allergy status to narcotic agent
CPT/HCPCS: 96374; 96375; 99284; J2405; J3010; J7512